=== PATIENT | male | born 1950 | race Caucasian/White ===

== ENCOUNTER 2020-02-20 07:14 | Emergency (ER) | payer MEDICARE, SELFPAY ==
--- NOTE | ~2020-02-20 | US_ITS ---
EXAMINATION: US venous doppler LE RT DATE: 02/20/2020 08:00 INDICATION: Lower limb pain TECHNIQUE: Grayscale ultrasound images without and with compression and Doppler ultrasound images of the right lower extremity veins were obtained. COMPARISON: 01/23/2018 FINDINGS: The visualized portions of right common femoral vein, profunda (deep) femoral vein, femoral vein, pop liteal vein, peroneal trunk, posterior tibial veins, peroneal veins, gastrocnemius vein and greater s aphenous vein outflow are patent. Subcutaneous edema at the anterior right lower leg with no discrete fluid collections to suggest abscess. There are a few shadowing dystrophic calcifications versus phl eboliths in the subcutaneous tissues. IMPRESSION: 1. No deep venous thrombosis in the right lower limb. Reviewed, dictated and finalized at location A.
[2020-02-20 07:21] VITALS: BP 162/92; PULSE 101; RESP 22; TEMP 36.5; O2SAT 96
--- NOTE | 2020-02-20 07:30 | ED.LOWEXIN ---
HPI - Extremity Injury (Lower) General Chief Complaint: Extremity Injury, Lower Stated Complaint: redness & swelling in right leg Time Seen by Provider: 02/20/20 07:16 Source: RN notes reviewed History of Present Illness HPI Narrative: Patient presents to emergency department from home for right leg pain. Patient states that 2 days ago he began to notice a purplish red discoloration to his right lower leg as well as pain. Patient states he did slip approximately 3 days ago in the mud but caught himself. States the pain is located in the posterior calf region and radiates around to the front of the leg. Patient is also noted swelling. He denies any fevers or chills chest pain shortness of breath abdominal pain or any other symptoms. Denies any previous history of DVT. Denies any ankle or knee pain Related Data Home Medications Medication Instructions Recorded Confirmed albuterol 90 mcg/actuation aerosol mcg INHALATION 11/10/19 11/10/19 inhaler furosemide 20 mg tablet 20 mg PO QAM 11/10/19 11/10/19 glimepiride 2 mg tablet 2 mg PO QAM 11/10/19 11/10/19 fenofibrate micronized 200 mg PO DAILY 02/20/20 ipratropium-albuterol ml INHALATION 02/20/20 metformin 500 mg PO BID 02/20/20 rosuvastatin [Crestor] 20 mg PO DAILY 02/20/20 Allergies Allergy/AdvReac Type Severity Reaction Status Date / Time No Known Allergies Allergy Verified 12/12/19 14:48 Review of Systems Review of Systems: Narrative: Gen.: Denies fevers or chills Eyes: Denies eye pain or visual change ENT: Denies congestion Respiratory: Denies shortness of breath or cough CV: Denies chest pain or palpitations GI: Denies abdominal pain nausea, emesis or diarrhea Musculoskeletal: Denies back pain reports right leg pain Neuro: Denies numbness, tingling, weakness or focal weakness Skin: Reports leg redness Except as documented, all other systems reviewed and negative [facility] Past Medical History Medical History Amputation of leg COPD (chronic obstructive pulmonary disease) Diabetic peripheral angiopathy GERD (gastroesophageal reflux disease) Hypoxemia Mixed hyperlipidemia Non-pressure ulcer of lower extremity Obesity Obstructive sleep apnea Psoriasis Type 2 diabetes mellitus Social History Social History (Updated 02/20/20 @ 07:34 by Max Dubon DO) Smoking status: Former smoker Alcohol intake: current Exam Narrative: Exam Narrative: APPEARANCE: No acute distress, nontoxic, resting in bed EYES: EOMI HEENT: Normocephalic, atraumatic, OMM RESPIRATORY: No respiratory distress Clear to auscultation bilaterally with no rhonchi wheezing or rales. CARDIOVASCULAR: Regular rate and rhythm without murmurs rubs or gallops. ABDOMINAL: Soft, nontender, nondistended, no rebound or guarding MUSCULOSKELETAl: Moves all extremities. No clubbing, cyanosis left BKA, right lower extremity has reddish-purple erythema around the mid llanes wrapping around to the posterior leg does not extend to the ankle or the foot or proximally to the knee, there is no tenderness of the knee or ankle full range of motion of both, dorsalis pedis pulse 2+ neurovascular intact NEURO: Awake and alert. Following commands, speech normal, no focal deficits SKIN:: Warm, dry. No rashes lesions or abrasions PSYCHIATRIC: Normal affect/mood, Course Course Emergency Course: Discussed with patient results of workup and diagnosis. Discussed need for follow-up with primary care, proper use of medication, and reasons to return to the emergency department. Patient understands and agrees to current treatment plan Vital Signs Vital signs: Vital Signs Temperature 97.7 F 02/20/20 07:21 Pulse Rate 101 H 02/20/20 07:21 Respiratory Rate 22 H 02/20/20 07:21 Blood Pressure 162/92 H 02/20/20 07:21 Pulse Oximetry 96 02/20/20 07:21 Temperature 97.7 F 02/20/20 07:21 Pulse Rate 101 H 02/20/20 07:21 Respiratory Rate 22 H
[2020-02-20 08:03] LABS: Basophils Percent Auto 0.5 % (0.2-1.2); Eosinophils Absolute Auto 0.2 K/mm3 (0-0.3); Eosinophils Percent Auto 1.9 % (0-4.4); Hematocrit 40.6 % (42.0-52.0); Hemoglobin 12.7 g/dL (14.0-18.0); Immature Granulocyte Absolute 0.02 K/mm3 (0.00-0.031); Immature Granulocyte Percent A 0.2 % (0-0.5); Lymphocytes Percent Auto 16.9 % (18.3-44.2); Mean Corpuscular HGB Conc 31.3 g/dl (32-36); Mean Corpuscular Hemoglobin 27.1 pg (26-34); Mean Corpuscular Volume 86.8 fl (80-100); Mean Platelet Volume 10.2 fl (7.4-10.4); Monocytes Absolute Auto 0.7 K/mm3 (0.1-0.6); Monocytes Percent Auto 8.2 % (2.6-8.5); Neutrophils Absolute Auto 6.4 K/mm3 (1.3-6.7); Neutrophils Percent Auto 72.3 % (45.5-73.1); Platelet Count Result 330 k/mm3 (150-375); Red Blood Count 4.68 M/mm3 (4.6-6.20); Red Cell Distribution Width 15.3 % (11.5-14.5); White Blood Count 8.9 K/mm3 (4.5-10.0)
[2020-02-20 08:15] LABS: INR 0.9; Prothrombin Time 11.5 Seconds (11.1-14.7)
[2020-02-20 08:16] LABS: Partial Thromboplastin Time 24.9 SECONDS (22.3-36.8)
[2020-02-20 08:17] LABS: Blood Urea Nitrogen 13 mg/dL (9-20); Carbon Dioxide 28 mmol/L (22-30); Chloride 100 mmol/L (98-107); Estimated CRCL calculation 123 ml/min; Estimated Glomerular Filt Rate > 60; Glucose 196 mg/dL (75-110); Potassium 4.2 mmol/L (3.4-5.0); Sodium 134 mmol/L (137-145)
[2020-02-20] MEDS: ACETAMINOPHEN 500 MG TABLET 1000 MG PO (09:08)
[2020-02-20] MEDS: CEPHALEXIN 500 MG CAPSULE PO (09:08)
== END 2020-02-20 09:16 | disposition home or self-care (01) ==
PROVIDERS: Emergency Provider Emergency Medicine; PCP Internal Medicine
DX: L03.115 Cellulitis of right lower limb (principal); J44.9 Chronic obstructive pulmonary disease, unspecified; E11.51 Type 2 diabetes mellitus with diabetic peripheral angiopathy without gangrene; Z79.84 Long term (current) use of oral hypoglycemic drugs; K21.9 Gastro-esophageal reflux disease without esophagitis; E78.2 Mixed hyperlipidemia; G47.33 Obstructive sleep apnea (adult) (pediatric); E66.9 Obesity, unspecified; Z68.41 Body mass index [BMI] 40.0-44.9, adult; Z89.512 Acquired absence of left leg below knee
CPT/HCPCS: 36415; 80048; 85025; 85610; 85730; 93971; 99284; A9270

== ENCOUNTER 2022-04-21 09:55 | Outpatient (CLI) | payer MEDICARE, SELFPAY ==
--- NOTE | ~2022-04-21 | CT_ITS ---
EXAMINATION: CT lung screening DATE: 04/21/2022 10:19 INDICATION: Personal history of nicotine dependence TECHNIQUE: Computed tomography (CT) of the chest was performed without intravenous contrast. The dose -length product was 387.54 mGy-cm. Automated exposure control and iterative reconstruction technique were employed. COMPARISON: CT dated 01/24/2018 FINDINGS: Heart size normal. No thoracic lymphadenopathy. There is atherosclerosis of the aorta and c oronary arteries. There are calcified granulomas of the lung parenchyma, mediastinum and spleen. No s ignificant pleural or pericardial effusion. There is emphysema. There is lingular and right middle lo be atelectasis/scarring. There are bilateral calcified pleural plaques, consistent with previous asbe stos exposure. There are bilateral pulmonary nodules measuring 4 mm or less. No endobronchial lesions . No pneumothorax. There is slight enlargement of fissural nodule on the right, image 59, measuring 7 x 5 mm compared with 7 x 4.5 mm on prior examination. IMPRESSION: 1. Lung-RADS category 2: Benign appearance or behavior. Continue annual screening with noncontrast lo w-dose chest CT in 12 months. Reviewed, dictated and finalized at location A. IMPRESSION: 1. Lung-RADS category 2: Benign appearance or behavior. Continue annual screeni ng with noncontrast low-dose chest CT in 12 months.
== END 2022-04-21 09:56 | disposition home or self-care (01) ==
PROVIDERS: PCP Family Medicine; Visit Provider Family Medicine
DX: Z12.2 Encounter for screening for malignant neoplasm of respiratory organs (principal); Z87.891 Personal history of nicotine dependence
CPT/HCPCS: 71271

== ENCOUNTER 2022-09-11 11:36 | Outpatient (CLI) | payer MEDICARE, SELFPAY ==
[2022-09-11 21:51] LABS: Hemoglobin A1C 6.8 % (<5.7)
[2022-09-11 22:45] LABS: Alanine Aminotransferase 49 U/L (6-50); Albumin Level 4.5 g/dL (3.5-5.1); Alkaline Phosphatase 110 U/L (38-126); Anion Gap 12 mmol/L (8-16); Aspartate Amino Transferase 35 U/L (17-59); Bilirubin,Total 0.6 mg/dL (0.2-1.3); Blood Urea Nitrogen 15 mg/dL (9-20); Calcium 9.2 mg/dL (8.4-10.2); Carbon Dioxide 26 mmol/L (22-30); Chloride 100 mmol/L (98-107); Cholesterol 171 mg/dL (0-200); Estimated Glomerular Filt Rate > 60; Glucose 138 mg/dL (65-110); HDL Direct 45 mg/dL; Potassium 4.6 mmol/L (3.4-5.0); Sodium 138 mmol/L (137-145); Triglycerides 334 mg/dL (<150)
[2022-09-11 23:03] LABS: LDL Cholesterol Direct 33 mg/dL
== END 2022-09-11 11:37 | disposition home or self-care (01) ==
LOC: ANHGOSHLAB 11:43
PROVIDERS: Internal Medicine; PCP Family Medicine; Visit Provider Family Medicine
DX: E11.9 Type 2 diabetes mellitus without complications (principal); E78.2 Mixed hyperlipidemia; Z13.228 Encounter for screening for other metabolic disorders
CPT/HCPCS: 36415; 80053; 80061; 83036

== ENCOUNTER 2023-04-22 12:38 | Emergency (ER) | payer MEDICARE, SELFPAY ==
[2023-04-22 12:40] VITALS: BP 153/73; PULSE 99; RESP 20; TEMP 36.6; O2SAT 96
[2023-04-22 13:55] LABS: Basophils Percent Auto 0.3 % (0.2-1.2); Eosinophils Absolute Auto 0.1 K/mm3 (0-0.3); Eosinophils Percent Auto 1.4 % (0-4.4); Hematocrit 41.1 % (42.0-52.0); Hemoglobin 13.3 g/dL (14.0-18.0); Immature Granulocyte Absolute 0.04 K/mm3 (0.00-0.031); Immature Granulocyte Percent A 0.4 % (0-0.5); Lymphocytes Absolute Auto 0.87 K/mm3 (0.9-3.2); Lymphocytes Percent Auto 9.5 % (18.3-44.2); Mean Corpuscular HGB Conc 32.4 g/dl (32-36); Mean Corpuscular Hemoglobin 27.9 pg (26-34); Mean Corpuscular Volume 86.2 fl (80-100); Mean Platelet Volume 9.8 fl (7.4-10.4); Monocytes Absolute Auto 0.9 K/mm3 (0.1-0.6); Monocytes Percent Auto 9.8 % (2.6-8.5); Neutrophils Absolute Auto 7.2 K/mm3 (1.3-6.7); Neutrophils Percent Auto 78.6 % (45.5-73.1); Platelet Count Result 274 k/mm3 (150-375); Red Blood Count 4.77 M/mm3 (4.6-6.20); Red Cell Distribution Width 16.2 % (11.5-14.5); White Blood Count 9.1 K/mm3 (4.5-10.0)
[2023-04-22 14:08] LABS: Alanine Aminotransferase 44 U/L (6-50); Albumin Level 4.3 g/dL (3.5-5.1); Alkaline Phosphatase 113 U/L (38-126); Anion Gap 6 mmol/L (8-16); Aspartate Amino Transferase 35 U/L (17-59); Bilirubin,Total 0.8 mg/dL (0.2-1.3); Blood Urea Nitrogen 16 mg/dL (9-20); Calcium 8.8 mg/dL (8.4-10.2); Carbon Dioxide 33 mmol/L (22-30); Chloride 97 mmol/L (98-107); Estimated CRCL calculation 105 ml/min; Estimated Glomerular Filt Rate > 60; Glucose 170 mg/dL (65-110); Potassium 4.2 mmol/L (3.4-5.0); Sodium 136 mmol/L (137-145)
[2023-04-22 14:09] LABS: Lactic Acid Reflex 1.7 mmol/L (0.7-2.0)
[2023-04-22] MEDS: CEFEPIME 1 GM/NS 50 ML 1 GM/50 ML BAG IVPB (15:17)
[2023-04-22 16:06] VITALS: BP 165/95; PULSE 100; RESP 18; O2SAT 100
--- NOTE | 2023-04-22 17:32 | ED.SKABFB ---
HPI - Skin/Abscess/Foreign Bdy General Chief complaint: Skin/Abscess/Foreign Body Stated complaint: i think i have cellulitus Time Seen by Provider: 04/22/23 13:08 Source: patient Mode of arrival: ambulatory Limitations: no limitations History of Present Illness HPI narrative: 73-year-old with a history of hypertension, diabetes, COPD on home oxygen here with complaints of pain, swelling and redness to his back which started 2 days ago. He denies any trauma. Patient states that few days ago was scratching his back. He does have a history of herpes zoster as well as cellulitis. He states that the rash is not burning. complaint: rash Onset (ago): day(s) (2) Location: back Severity: moderate Quality: dull Pain Consistency: constant Relieving factors: none Exacerbating factors: none Context: none Associated symptoms: denies other symptoms Treatments prior to arrival: none Related Data Home Medications Medication Instructions Recorded Confirmed albuterol 90 mcg/actuation aerosol 90 mcg inhalation DAILY PRN 03/12/23 03/12/23 inhaler aspirin 81 mg capsule 81 mg PO DAILY 03/12/23 03/12/23 Allergies Allergy/AdvReac Type Severity Reaction Status Date / Time No Known Allergies Allergy Verified 04/22/23 13:00 Review of Systems Review of Systems: All systems reviewed & are unremarkable except as noted in HPI and below Constitutional: Constitutional: Reports no additional constitutional complaints Eyes: Eyes: Reports no additional eye complaints ENT: Reports system reviewed and no additional complaints, except as documented Cardiovascular: Cardiovascular: Reports no additional cardiovascular complaints Respiratory: Respiratory: Reports no additional respiratory complaints Gastrointestinal: Gastrointestinal: Reports no additional gastrointestinal complaints Musculoskeletal: Musculoskeletal: Reports no additional musculoskeletal complaints Integumentary/Breasts: Skin/Breast: Reports as per HPI Neurologic: Reports system reviewed and no additional complaints, except as documented PMF Past Medical History Medical History (Updated 04/22/23 @ 17:49 by Salo Xiong MD) Amputation of leg COPD (chronic obstructive pulmonary disease) Diabetic peripheral angiopathy GERD (gastroesophageal reflux disease) Hypoxemia Mixed hyperlipidemia Non-pressure ulcer of lower extremity Obesity Obstructive sleep apnea Psoriasis Type 2 diabetes mellitus Family History Family History Mother Patient's mother is Father Patient's father is Social History Social History Smoking status: Former smoker Alcohol intake: current Substance use: never Substance use type: does not use Lack of Transportation: No Lack of Food: Never True Current Housing: I Have Housing Concerned About Future Housing: No Difficulty Paying Gas/Electric Bills: No Difficulty Paying for Meds: No Currently Unemployed: No Education: Trade/Vocational Certificate Difficulty w/ Childcare or Family Care: No Living arrangements: with family Occupation/Education: retired Gender identity (if verbalized by the patient): Male Spiritual care concerns: No Exam Narrative: GENERAL: Well-appearing, well-nourished, and in no acute distress. HEAD: Normocephalic, atraumatic. EYES: PERRLA and EOMI. ENT: Nares clear, no rhinorrhea or epistaxis. Mucous membranes moist. NECK: Supple. CHEST: Clear to auscultation. No respiratory distress. HEART: Regular rate and rhythm. No murmur heard. Normal peripheral pulses. ABDOMEN: Soft, nontender, nondistended, normal active bowel sounds. EXTREMITIES: Normal range of motion. No edema.BKA left SKIN: Warm, dry, no rash.see the picture NEURO: No focal deficits. Alert and oriented x3. PSYCH: Normal mood and affect. Back/Spine/Pelvis:
[2023-04-22 18:08] VITALS: BP 178/87; PULSE 96; RESP 20; O2SAT 98
== END 2023-04-22 17:59 | disposition home or self-care (01) ==
PROVIDERS: Emergency Provider Family Medicine; PCP Family Medicine
DX: L03.312 Cellulitis of back [any part except buttock and flank] (principal); I10 Essential (primary) hypertension; J44.9 Chronic obstructive pulmonary disease, unspecified; E11.51 Type 2 diabetes mellitus with diabetic peripheral angiopathy without gangrene; I73.9 Peripheral vascular disease, unspecified; E78.2 Mixed hyperlipidemia; G47.33 Obstructive sleep apnea (adult) (pediatric); E66.9 Obesity, unspecified; Z68.41 Body mass index [BMI] 40.0-44.9, adult; K21.9 Gastro-esophageal reflux disease without esophagitis; Z89.9 Acquired absence of limb, unspecified; Z87.891 Personal history of nicotine dependence; Z79.82 Long term (current) use of aspirin; Z79.85 Long-term (current) use of injectable non-insulin antidiabetic drugs; Z79.84 Long term (current) use of oral hypoglycemic drugs
CPT/HCPCS: 36415; 80053; 83605; 85025; 87040; 96365; 96366; 96367; 99284; J0692; J3370

== ENCOUNTER 2023-09-10 09:48 | Outpatient (CLI) | payer MEDICARE, SELFPAY ==
--- NOTE | ~2023-09-10 | CT_ITS ---
CT Scan of the Chest without Contrast: Clinical Indication: Solitary pulmonary nodule Technique: Contiguous sections were acquired throughout the chest without intravenous contrast. Dose reduction technique was used on this scan by utilizing automated exposure control and iterative recon struction technique. The dose-length product (DLP) was 363.66 mGy-cm. COMPARISON: 04/21/2022 Findings: There is no evidence of any significant mediastinal, hilar or axillary lymphadenopathy. Small calcifi ed lymph nodes are present at the left hilum. Coronary artery calcifications are present. Possible se baceous cyst noted at the anterior chest x-ray of midline, unchanged There is no evidence of pleural or pericardial effusion. Calcified bibasilar pleural plaques are pres ent There is probable scarring in the lingula. Several subcentimeter, peripheral nodules are present bila terally, likely benign, similar to prior exam. Stable 7 mm perifissural nodule in the right lung (axi al image 69). Images through the upper abdomen reveal no abnormalities. Impression: Pulmonary nodules, as detailed above, essentially unchanged. Largest nodule measures 7 mm a perifissu ral location the right lung. Reviewed, dictated and finalized at location M. Impression: Pulmonary nodules, as detailed above, essentially unchanged. Largest nodule donna sures 7 mm a perifissural location the right lung.
== END 2023-09-10 09:49 | disposition home or self-care (01) ==
LOC: ANHIMG 09:53
PROVIDERS: PCP Family Medicine; Visit Provider Family Medicine
DX: R91.8 Other nonspecific abnormal finding of lung field (principal)
CPT/HCPCS: 71250

== ENCOUNTER 2023-09-28 08:44 | Emergency (ER) | payer MEDICARE, SELFPAY ==
[2023-09-28 08:59] VITALS: BP 155/73; PULSE 95; RESP 20; TEMP 36.6; O2SAT 95
[2023-09-28 10:55] VITALS: BP 158/80; PULSE 99; RESP 18; TEMP 36.9; O2SAT 96; O2SAT 97
[2023-09-28 11:53] LABS: Basophils Percent Auto 0.2 % (0.2-1.2); Eosinophils Percent Auto 0.2 % (0-4.4); Hematocrit 42.3 % (42.0-52.0); Hemoglobin 13.2 g/dL (14.0-18.0); Immature Granulocyte Absolute 0.04 K/mm3 (0.00-0.031); Immature Granulocyte Percent A 0.3 % (0-0.5); Lymphocytes Absolute Auto 0.97 K/mm3 (0.9-3.2); Lymphocytes Percent Auto 7.4 % (18.3-44.2); Mean Corpuscular HGB Conc 31.2 g/dl (32-36); Mean Corpuscular Hemoglobin 26.8 pg (26-34); Mean Corpuscular Volume 85.8 fl (80-100); Mean Platelet Volume 9.8 fl (7.4-10.4); Monocytes Absolute Auto 1.2 K/mm3 (0.1-0.6); Monocytes Percent Auto 8.9 % (2.6-8.5); Neutrophils Absolute Auto 10.9 K/mm3 (1.3-6.7); Platelet Count Result 266 k/mm3 (150-375); Red Blood Count 4.93 M/mm3 (4.6-6.20); Red Cell Distribution Width 16.4 % (11.5-14.5); White Blood Count 13.1 K/mm3 (4.5-10.0)
[2023-09-28 12:11] LABS: Alanine Aminotransferase 37 U/L (6-50); Albumin Level 4.3 g/dL (3.5-5.1); Alkaline Phosphatase 99 U/L (38-126); Anion Gap 7 mmol/L (8-16); Aspartate Amino Transferase 33 U/L (17-59); Bilirubin,Total 1.2 mg/dL (0.2-1.3); Blood Urea Nitrogen 12 mg/dL (9-20); Carbon Dioxide 29 mmol/L (22-30); Chloride 98 mmol/L (98-107); Estimated CRCL calculation 105 ml/min; Estimated Glomerular Filt Rate > 60; Glucose 137 mg/dL (65-110); Sodium 134 mmol/L (137-145)
--- NOTE | 2023-09-28 12:52 | ED.SKABFB ---
HPI - Skin/Abscess/Foreign Bdy General Chief complaint: Skin/Abscess/Foreign Body Stated complaint: cellulitis on back Time Seen by Provider: 09/28/23 10:45 History of Present Illness HPI narrative: Patient is a 73-year-old male who presents ER with concerns for cellulitis to his back. Noticed the rash over the last 2 days. Pruritic. No fevers or chills or sweats. Patient has history of psoriasis and this rash is different. Patient also is diabetic. Furthermore patient also has a small cut near the his cuticle at the right second toe. States it occurred when he pulled off his sock. No drainage. No eschar. No foul odor. Related Data Home Medications Medication Instructions Recorded Confirmed albuterol 90 mcg/actuation aerosol 90 mcg inhalation DAILY PRN 03/12/23 08/27/23 inhaler aspirin 81 mg capsule 81 mg PO DAILY 03/12/23 08/27/23 Allergies Allergy/AdvReac Type Severity Reaction Status Date / Time No Known Allergies Allergy Verified 09/28/23 10:53 Review of Systems Review of Systems: All systems reviewed & are unremarkable except as noted in HPI and below Constitutional: Constitutional: Denies chills, Denies fatigue and Denies fever(s) Cardiovascular: Cardiovascular: Denies chest pain, Denies rapid heart rate and Denies radiating jaw, neck or arm pain Respiratory: Respiratory: Denies cough and Denies dyspnea Integumentary/Breasts: Skin/Breast: Reports pruritus, Reports erythema and Reports rash PMFSH Past Medical History Medical History (Updated 09/28/23 @ 12:58 by Ramirez Saab MD) Amputation of leg COPD (chronic obstructive pulmonary disease) Diabetic peripheral angiopathy GERD (gastroesophageal reflux disease) Hypoxemia Mixed hyperlipidemia Non-pressure ulcer of lower extremity Obesity Obstructive sleep apnea Psoriasis Type 2 diabetes mellitus Family History Family History Mother Patient's mother is Father Patient's father is Social History Social History Smoking status: Former smoker Alcohol intake: current Substance use: never Substance use type: does not use Lack of Transportation: No Lack of Food: Never True Current Housing: I Have Housing Concerned About Future Housing: No Difficulty Paying Gas/Electric Bills: No Difficulty Paying for Meds: No Currently Unemployed: No Education: Trade/Vocational Certificate Difficulty w/ Childcare or Family Care: No Living arrangements: with family Occupation/Education: retired Gender identity (if verbalized by the patient): Male Spiritual care concerns: No Exam Narrative: GENERAL: Well-appearing, well-nourished, and in no acute distress. HEAD: Normocephalic, atraumatic. ENT: Mucous membranes moist. CHEST: Clear to auscultation. No respiratory distress. HEART: Regular rate and rhythm. Normal peripheral pulses. ABDOMEN: Soft, nontender, nondistended. EXTREMITIES: Normal range of motion. No edema. Left BKA. Abrasion right second toe without infection. SKIN: Warm, dry. Cellulitis mid back that is warm and blanching. Psoriasis left leg. NEURO: Alert and oriented x3. PSYCH: Normal mood and affect. Course Course Emergency Course: Slight increase in white blood cell count however patient felt appropriate for outpatient antibiotics. Vital Signs Vital signs: Vital Signs Temperature 97.8 F 09/28/23 08:59 Pulse Rate 95 09/28/23 08:59 Respiratory Rate 20 09/28/23 08:59 Blood Pressure 155/73 H 09/28/23 08:59 Pulse Oximetry 95 09/28/23 08:59 Oxygen Delivery Nasal Cannula 09/28/23 08:59 Oxygen Flow Rate 3 09/28/23 08:59 Temperature 98.5 F 09/28/23 10:55 Pulse Rate 88 09/28/23 13:11 Respiratory Rate 16 09/28/23 13:11 Blood Pressure 124/75 09/28/23 13:11 Pulse Oximetry 98 09/28/23 13:11 Oxygen Delivery
[2023-09-28 12:56] VITALS: BP 130/75; PULSE 92; RESP 18; O2SAT 97
[2023-09-28 13:11] VITALS: BP 124/75; PULSE 88; RESP 16; O2SAT 98
== END 2023-09-28 13:12 | disposition home or self-care (01) ==
PROVIDERS: Emergency Provider Emergency Medicine; PCP Family Medicine
DX: L03.312 Cellulitis of back [any part except buttock and flank] (principal); J44.9 Chronic obstructive pulmonary disease, unspecified; E78.2 Mixed hyperlipidemia; E11.9 Type 2 diabetes mellitus without complications; Z87.891 Personal history of nicotine dependence
CPT/HCPCS: 36415; 80053; 85025; 99283

== ENCOUNTER 2024-01-18 08:53 | Inpatient (IN) | payer MEDICARE, SELFPAY ==
[2024-01-18] VITALS (31 sets, daily range): BP systolic 121–194; BP diastolic 63–92; PULSE 85–103; RESP 15–26; TEMP 36.4–36.9; O2SAT 91–100; BMI 39.0
--- NOTE | ~2024-01-18 | US_ITS ---
EXAMINATION: US venous doppler LE RT DATE: 01/19/2024 11:05 INDICATION: Right lower limb edema TECHNIQUE: Alston scale images without and with compression and Doppler images of the right lower extre mity veins were obtained. COMPARISON: 02/20/2020 FINDINGS: The right common femoral vein, profunda femoral vein, femoral vein, popliteal vein, peronea l trunk, posterior tibial veins, and greater saphenous vein are patent. There is a possible pseudoane urysm of the proximal superficial femoral artery. IMPRESSION: 1. Patent right lower extremity veins. No evidence of deep venous thrombosis. 2. 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 Reviewed, dictated and finalized at location B. [facility]E [facility]ATER
[2024-01-18 09:22] LABS: Glucose Point of Care 160 mg/dl (65-105)
[2024-01-18 11:48] LABS: Basophils Percent Auto 0.6 % (0.2-1.2); Eosinophils Absolute Auto 0.1 K/mm3 (0-0.3); Hematocrit 39.9 % (42.0-52.0); Hemoglobin 12.3 g/dL (14.0-18.0); Immature Granulocyte Absolute 0.02 K/mm3 (0.00-0.031); Immature Granulocyte Percent A 0.3 % (0-0.5); Lymphocytes Absolute Auto 0.86 K/mm3 (0.9-3.2); Lymphocytes Percent Auto 13.5 % (18.3-44.2); Mean Corpuscular HGB Conc 30.8 g/dl (32-36); Mean Corpuscular Hemoglobin 27.3 pg (26-34); Mean Corpuscular Volume 88.5 fl (80-100); Mean Platelet Volume 9.7 fl (7.4-10.4); Monocytes Absolute Auto 0.6 K/mm3 (0.1-0.6); Monocytes Percent Auto 8.6 % (2.6-8.5); Neutrophils Absolute Auto 4.8 K/mm3 (1.3-6.7); Platelet Count Result 274 k/mm3 (150-375); Red Blood Count 4.51 M/mm3 (4.6-6.20); Red Cell Distribution Width 16.3 % (11.5-14.5); White Blood Count 6.4 K/mm3 (4.5-10.0)
[2024-01-18 12:02] LABS: Anion Gap 6 mmol/L (8-16); Blood Urea Nitrogen 15 mg/dL (9-20); CRP < 0.5 mg/dL (<1.0); Calcium 9.2 mg/dL (8.4-10.2); Carbon Dioxide 29 mmol/L (22-30); Chloride 103 mmol/L (98-107); Estimated CRCL calculation 105 ml/min; Estimated Glomerular Filt Rate > 60; Glucose 146 mg/dL (65-110); Potassium 4.5 mmol/L (3.4-5.0); Sodium 138 mmol/L (137-145)
[2024-01-18 12:26] LABS: Erythrocyte Sedimentation Rate 21 mm/hr (0-20)
[2024-01-18] MEDS: CEFEPIME 2 GM/NS 50 ML 2 GM/50 ML BAG IVPB (12:56)
--- NOTE | 2024-01-18 12:58 | ED.SKABFB ---
HPI - Skin/Abscess/Foreign Bdy General Chief complaint: Skin/Abscess/Foreign Body Stated complaint: infected stump Time Seen by Provider: 01/18/24 11:47 Source: patient Mode of arrival: wheelchair Limitations: no limitations History of Present Illness HPI narrative: 73-year-old with a history of a diabetes status post BKA on the left, recurrent cellulitis of the lower extremities today are the patient had redness to his left upper thigh extending into his lower abdomen. Patient states that it has been ongoing for past few days. He was recently admitted to [facility] for cellulitis of some right lower extremity. Patient states that he was given vancomycin on day 1 and later was switched over to ampicillin. He stated he grew strep in his blood presently denies any fever or chills no history of nausea vomiting or abdominal pain MD complaint: rash Onset (ago): day(s) (5) Location: LLE Severity: moderate Quality: burning Pain Consistency: constant Relieving factors: none Exacerbating factors: none Context: none Associated symptoms: denies other symptoms Related Data Home Medications Medication Instructions Recorded Confirmed albuterol 90 mcg/actuation aerosol 90 mcg inhalation DAILY PRN 03/12/23 08/27/23 inhaler aspirin 81 mg capsule 81 mg PO DAILY 03/12/23 08/27/23 Allergies Allergy/AdvReac Type Severity Reaction Status Date / Time No Known Allergies Allergy Verified 01/18/24 11:11 Review of Systems Review of Systems: All systems reviewed & are unremarkable except as noted in HPI and below Constitutional: Constitutional: Reports no additional constitutional complaints Eyes: Eyes: Reports no additional eye complaints ENT: Reports system reviewed and no additional complaints, except as documented Cardiovascular: Cardiovascular: Reports no additional cardiovascular complaints Respiratory: Respiratory: Reports no additional respiratory complaints Gastrointestinal: Gastrointestinal: Reports no additional gastrointestinal complaints Musculoskeletal: Musculoskeletal: Reports no additional musculoskeletal complaints Integumentary/Breasts: Skin/Breast: Reports erythema and Reports rash Neurologic: Reports system reviewed and no additional complaints, except as documented Endocrine: Endocrine: Reports no additional endocrine complaints Hematologic/Lymphatic: Hematologic/Lymphatic: Reports no additional hematologic/lymphatic complaints [facility] Past Medical History Medical History (Updated 01/18/24 @ 13:05 by Salo Xiong MD) Amputation of leg COPD (chronic obstructive pulmonary disease) Diabetic peripheral angiopathy GERD (gastroesophageal reflux disease) Hypoxemia Mixed hyperlipidemia Non-pressure ulcer of lower extremity Obesity Obstructive sleep apnea Psoriasis Type 2 diabetes mellitus Family History Family History Mother Patient's mother is Father Patient's father is Social History Social History Smoking status: Former smoker Alcohol intake: current Substance use: never Substance use type: does not use Lack of Transportation: No Lack of Food: Never True Current Housing: I Have Housing Concerned About Future Housing: No Difficulty Paying Gas/Electric Bills: No Difficulty Paying for Meds: No Currently Unemployed: No Education: Trade/Vocational Certificate Difficulty w/ Childcare or Family Care: No Living arrangements: with family Occupation/Education: retired Gender identity (if verbalized by the patient): Male Spiritual care concerns: No Exam Narrative: GENERAL: Well-appearing, well-nourished, and in no acute distress. HEAD: Normocephalic, atraumatic. EYES: PERRLA and EOMI. ENT: Nares clear, no rhinorrhea or epistaxis. Mucous membranes moist. NECK: Supple. CHEST: Clear to auscultatio
[2024-01-18] MEDS: metroNIDAZOLE 500 MG/ISO 100ML 500 MG/100 ML BAG 100 MG IVPB (13:14)
[2024-01-18] MEDS: SODIUM CHLORIDE 0.9% IV 1,000 ML 75 ML IV CONT (13:27)
[2024-01-18] MEDS: IPRATROPIUM 0.5 MG/ALBUTEROL SULFATE 2.5 MG AMPUL.NEB 3 ML INHALATION ×2 (16:23→22:04)
--- NOTE | 2024-01-18 18:36 | PM.IMHP ---
H&P: HPI History of Present Illness Date/Time: 01/18/24 16:00 Chief Complaint: Pain and redness on left thigh. 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 The patient provides the following history. He was hospitalized at [place] the end of November with right lower extremity cellulitis and strep bacteremia and he was discharged on Augmentin on 01/02/2024. He has been doing fine in that regard but sometime yesterday afternoon he developed a burning sensation in the left, medial distal thigh and this morning the same area which was burning had turned bright red/purple which is similar to his prior episode of cellulitis. He has psoriasis on that extremity but reports that this area of discoloration and pain is new finding in the last 24 hours and is not related to psoriasis; he also denies sores or friction from his prosthesis in this area. He has not had fever, chills, or sweats and he denies nausea and vomiting. History of MRSA documented in his chart. In the ED: He was afebrile on arrival with stable vital signs. Labs were significant for a WBC count of 6.4, hemoglobin 12.3, glucose 146, CRP less than 0.5. Given his recent history, he was started on broad-spectrum antibiotics and he is being admitted in this setting for treatment of a presumed new area of cellulitis. At the time my evaluation he has no current complaints. Review of Systems Review of Systems: Twelve systems were reviewed and are negative except for as per HPI. [facility] Past Medical History Medical History (Updated 01/18/24 @ 23:20 by Meenakshi Lai PA-C) Chronic obstructive pulmonary disease Diabetic peripheral angiopathy Gastroesophageal reflux Hypertension Mixed hyperlipidemia MRSA infection Obesity Obstructive sleep apnea Psoriasis Thromboangiitis obliterans Type 2 diabetes mellitus Surgical History Surgical History (Updated 01/18/24 @ 23:16 by Meenakshi Lai PA-C) History of appendectomy History of left below knee amputation Family History Family History Mother Patient's mother is Infection Father Patient's father is Stomach cancer Social History Social History (Updated 01/18/24 @ 23:17 by Meenakshi Lai PA-C) Social History: Surrogate medical decision maker: Rolanda Kelley, spouse. Code status: Full code. Smoking status: Former smoker Tobacco type: cigarettes Alcohol intake: former Substance use: former Substance use type: marijuana Last use: 2009 Do You Feel Safe in your Home?: Yes Lack of Transportation: No Lack of Food: Never True Current Housing: I Have Housing Concerned About Future Housing: No Difficulty Paying Gas/Electric Bills: No Difficulty Paying for Meds: No Currently Unemployed: No Education: Trade/Vocational Certificate Difficulty w/ Childcare or Family Care: No Living arrangements: with family Occupation/Education: retired Spiritual care concerns: No Meds Home Medications and Allergies Home Medications Medication Instructions Recorded Confirmed Type nebulizer accessories #50 ea 07/03/21 01/18/24 Rx 2 Knee selves, 4- 5 ply socks, 4- #1 ea 10/26/22 01/18/24 Rx 3 ply socks, 4- Anti-microbial socks aspirin 81 mg capsule 81 mg PO DAILY 03/12/23 01/18/24 History metformin 500 mg tablet 500 mg PO BID #180 tabs 05/03/23 01/18/24 Rx furosemide 20 mg tablet 20 mg PO QAM #90 tabs 08/10/23 01/18/24 Rx glimepiride 2 mg tablet 2 mg PO QAM #90 tabs 08/10/23 01/18/24 Rx rosuvastatin 20 mg tablet (Crestor) 20 mg PO DAILY #90 tabs 08/10/23 01/18/24 R
--- NOTE | 2024-01-18 21:30 | ADMGEN ---
This patient, Frank Kelley III, was admitted to 2 Medical Room 247-. Patient/family oriented to hospital policies and general routines including ID bracelet, bed and alarms, visiting hours, pain management, procedures, bathroom and other care routines, personal items, smoking policy, room service/diet, and visiting hours. Information on how to activate the Rapid Response Team has been discussed. Patient/Family are encouraged to report perceived risks to care and to ask questions if they do not understand what they are told or what they should do.
[2024-01-19] VITALS (13 sets, daily range): BP systolic 151–187; BP diastolic 63–69; PULSE 78–104; RESP 18–27; TEMP 36.1–36.8; O2SAT 94–98
[2024-01-19] MEDS: IPRATROPIUM 0.5 MG/ALBUTEROL SULFATE 2.5 MG AMPUL.NEB 3 ML INHALATION ×4 (02:51→20:38)
[2024-01-19] MEDS: SODIUM CHLORIDE 0.9% IV 1,000 ML 75 ML IV CONT ×2 (05:00→20:45)
[2024-01-19 05:19] LABS: Basophils Percent Auto 0.3 % (0.2-1.2); Eosinophils Absolute Auto 0.4 K/mm3 (0-0.3); Eosinophils Percent Auto 4.9 % (0-4.4); Hematocrit 40.3 % (42.0-52.0); Hemoglobin 12.3 g/dL (14.0-18.0); Immature Granulocyte Absolute 0.02 K/mm3 (0.00-0.031); Immature Granulocyte Percent A 0.3 % (0-0.5); Lymphocytes Percent Auto 15.5 % (18.3-44.2); Mean Corpuscular HGB Conc 30.5 g/dl (32-36); Mean Corpuscular Volume 88.6 fl (80-100); Monocytes Absolute Auto 0.7 K/mm3 (0.1-0.6); Monocytes Percent Auto 10.2 % (2.6-8.5); Neutrophils Absolute Auto 4.9 K/mm3 (1.3-6.7); Neutrophils Percent Auto 68.8 % (45.5-73.1); Platelet Count Result 275 k/mm3 (150-375); Red Blood Count 4.55 M/mm3 (4.6-6.20); Red Cell Distribution Width 16.1 % (11.5-14.5); White Blood Count 7.1 K/mm3 (4.5-10.0)
[2024-01-19 05:29] LABS: Hemoglobin A1C 6.8 % (<5.7)
[2024-01-19 05:33] LABS: Alanine Aminotransferase 28 U/L (6-50); Albumin Level 3.9 g/dL (3.5-5.1); Alkaline Phosphatase 88 U/L (38-126); Anion Gap 2 mmol/L (8-16); Aspartate Amino Transferase 29 U/L (17-59); Bilirubin,Total 0.7 mg/dL (0.2-1.3); Blood Urea Nitrogen 12 mg/dL (9-20); Carbon Dioxide 31 mmol/L (22-30); Chloride 104 mmol/L (98-107); Estimated CRCL calculation 103 ml/min; Estimated Glomerular Filt Rate > 60; Glucose 105 mg/dL (65-110); Magnesium 2.1 mg/dL (1.6-2.3); Potassium 4.2 mmol/L (3.4-5.0); Sodium 137 mmol/L (137-145)
[2024-01-19 08:36] LABS: Glucose Point of Care 127 mg/dl (65-105)
[2024-01-19] MEDS: ROSUVASTATIN 10 MG TABLET 20 MG PO (09:19)
[2024-01-19] MEDS: ASPIRIN 81 MG ENTERIC TABLET PO (09:20)
[2024-01-19] MEDS: ENOXAPARIN 40 MG/0.4 ML SYRINGE SUB-Q (09:20)
[2024-01-19] MEDS: GLIMEPIRIDE 2 MG TABLET PO (09:20)
[2024-01-19] MEDS: LOSARTAN POTASSIUM 50 MG TABLET PO (09:20)
[2024-01-19] MEDS: FUROSEMIDE 20 MG TABLET PO (09:20)
[2024-01-19 11:56] LABS: Glucose Point of Care 170 mg/dl (65-105)
[2024-01-19] MEDS: FLUCONAZOLE 100 MG TABLET 200 MG PO (12:58)
[2024-01-19] MEDS: AMPICILLIN SULB 3 GM/NS 100 ML 3 GM/100 ML VIAL IVPB ×2 (12:58→17:15)
--- NOTE | 2024-01-19 13:20 | P.PNIM_ITS ---
Progress Note: A&P Assessment and Plan (1) Cellulitis of left lower leg: Code(s): L03.116 - Cellulitis of left lower limb Status: Acute Assessment and Plan: * 2 IV abx Vanc and Unasyn initiated per antibiotic stewardship recommendation * PO FLuconazole added for antifungal * Hx of strep and MRSA infections * afebrile, WBC 7.1 * Blood cultures pending. * Monitor site for increased size of rash area (2) Type 2 diabetes mellitus: Qualifiers: Diabetes mellitus snf insulin use: without snf use Diabetes mellitus complication status: with circulatory complication Diabetes mellitus complication detail: with peripheral angiopathy with gangrene Qualified Code(s): E11.52 - Type 2 diabetes mellitus with diabetic peripheral angiopathy with gangrene Code(s): E11.9 - Type 2 diabetes mellitus without complications Status: Acute Assessment and Plan: * 01/19 Continue glimepiride * HgbA1C- 6.8 * Sliding scale insulin ordered, Accu-Cheks and hypoglycemia protocol * AM glucose 105 * Continue to monitor (3) Chronic obstructive pulmonary disease: Code(s): J44.9 - Chronic obstructive pulmonary disease, unspecified Status: Acute Assessment and Plan: * 01/19-Wears 3L O2 via NC at home for baseline- Continue * Denies SOB, dyspnea * Keep O2 sats greater than 92% (4) Obstructive sleep apnea: Code(s): G47.33 - Obstructive sleep apnea (adult) (pediatric) Status: Acute Assessment and Plan: * 01/19- CPAP provided while hospitalized- RT (5) Hypertension: Code(s): I10 - Essential (primary) hypertension Status: Acute Assessment and Plan: * 01/19- Continue antihypertensive mediations * AM BP 159/69 * Monitor and adjust as needed. (6) Diabetic peripheral angiopathy: Code(s): E11.51 - Type 2 diabetes mellitus with diabetic peripheral angiopathy without gangrene Status: Acute Assessment and Plan: * 01/19- Right Lower extremity edema noted * EXAMINATION: US venous doppler LE RT: Patent right lower extremity veins. No evidence of deep venous thrombosis.Possible pseudoaneurysm of the proximal superficial femoral artery. * Patient denies pain to this area. Stated vein taken from right leg to try to save left leg. 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 Patient states that it has been ongoing for past few days. He was recently admitted to [facility] for cellulitis of some right lower extremity. Patient states that he was given vancomycin on day 1 and later was switched over to ampicillin. He stated he grew strep in his blood presently denies any fever or chills no history of nausea vomiting or abdominal pain MD complaint: rash Onset (ago): day(s) (5) Location: LLE Severity: moderate Quality: burning Pain Consistency: constant Relieving factors: none Exacerbating factors: none Context: none Associated symptoms: denies other symptoms Narrative: H&P Chief Complaint: Pain and redness on left thigh. This is a pleasant 73-year-old male with type 2 diabetes mellitus, hypertension, dyslipidemia, chronic obstructive pulmonary disease, obstructive sleep apnea, an d thromboangiitis obliterans status po
--- NOTE | 2024-01-19 13:20 | PM.IMPN ---
Progress Note: A&P Assessment and Plan (1) Cellulitis of left lower leg: Code(s): L03.116 - Cellulitis of left lower limb Status: Acute Assessment and Plan: 01/19 IV abx Vanc and Unasyn initiated per antibiotic stewardship recommendation PO FLuconazole added for antifungal Hx of strep and MRSA infections afebrile, WBC 7.1 Blood cultures pending. Monitor site for increased size of rash area (2) Type 2 diabetes mellitus: Qualifiers: Diabetes mellitus fci insulin use: without dry kiln worker use Diabetes mellitus complication status: with circulatory complication Diabetes mellitus complication detail: with peripheral angiopathy with gangrene Qualified Code(s): E11.52 - Type 2 diabetes mellitus with diabetic peripheral angiopathy with gangrene Code(s): E11.9 - Type 2 diabetes mellitus without complications Status: Acute Assessment and Plan: 01/19 Continue glimepiride HgbA1C- 6.8 Sliding scale insulin ordered, Accu-Cheks and hypoglycemia protocol AM glucose 105 Continue to monitor (3) Chronic obstructive pulmonary disease: Code(s): J44.9 - Chronic obstructive pulmonary disease, unspecified Status: Acute Assessment and Plan: 01/19-Wears 3L O2 via NC at home for baseline- Continue Denies SOB, dyspnea Keep O2 sats greater than 92% (4) Obstructive sleep apnea: Code(s): G47.33 - Obstructive sleep apnea (adult) (pediatric) Status: Acute Assessment and Plan: 01/19- CPAP provided while hospitalized- RT (5) Hypertension: Code(s): I10 - Essential (primary) hypertension Status: Acute Assessment and Plan: 01/19- Continue antihypertensive mediations AM BP 159/69 Monitor and adjust as needed. (6) Diabetic peripheral angiopathy: Code(s): E11.51 - Type 2 diabetes mellitus with diabetic peripheral angiopathy without gangrene Status: Acute Assessment and Plan: 01/19- Right Lower extremity edema noted EXAMINATION: US venous doppler LE RT: Patent right lower extremity veins. No evidence of deep venous thrombosis.Possible pseudoaneurysm of the proximal superficial femoral artery. Patient denies pain to this area. Stated vein taken from right leg to try to save left leg. 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 Patient states that it has been ongoing for past few days. He was recently admitted to [facility] for cellulitis of some right lower extremity. Patient states that he was given vancomycin on day 1 and later was switched over to ampicillin. He stated he grew strep in his blood presently denies any fever or chills no history of nausea vomiting or abdominal pain MD complaint: rash Onset (ago): day(s) (5) Location: LLE Severity: moderate Quality: burning Pain Consistency: constant Relieving factors: none Exacerbating factors: none Context: none Associated symptoms: denies other symptoms Narrative: H&P Chief Complaint: Pain and redness on left thigh. 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 The patient provides the following history. He was hospitalized at [place] the end of November with right lower extremity cellulitis and strep bacteremia and he was discharged on Augmentin on 01/02/2024. He has been doing fine in that regard but sometime yes
[2024-01-19] MEDS: VANCOMYCIN 1,500 MG/NS 500 ML 1,500 MG/500 ML BAG 250 MG IVPB (14:10)
[2024-01-19 16:47] LABS: Glucose Point of Care 77 mg/dl (65-105)
[2024-01-19 20:53] LABS: Glucose Point of Care 164 mg/dl (65-105)
[2024-01-20] VITALS (13 sets, daily range): BP systolic 148–192; BP diastolic 68–86; PULSE 83–103; RESP 18–20; TEMP 36.3–36.8; O2SAT 94–98
[2024-01-20] MEDS: AMPICILLIN SULB 3 GM/NS 100 ML 3 GM/100 ML VIAL IVPB ×5 (00:10→23:31)
[2024-01-20] MEDS: VANCOMYCIN 1,500 MG/NS 500 ML 1,500 MG/500 ML BAG 250 MG IVPB (01:51)
[2024-01-20 05:20] LABS: Hematocrit 42.3 % (42.0-52.0); Hemoglobin 13.1 g/dL (14.0-18.0); Mean Corpuscular Hemoglobin 27.4 pg (26-34); Mean Corpuscular Volume 88.5 fl (80-100); Mean Platelet Volume 9.8 fl (7.4-10.4); Platelet Count Result 286 k/mm3 (150-375); Red Blood Count 4.78 M/mm3 (4.6-6.20); Red Cell Distribution Width 16.3 % (11.5-14.5); White Blood Count 7.8 K/mm3 (4.5-10.0)
[2024-01-20 05:40] LABS: Alanine Aminotransferase 30 U/L (6-50); Alkaline Phosphatase 95 U/L (38-126); Anion Gap 5 mmol/L (8-16); Aspartate Amino Transferase 33 U/L (17-59); Bilirubin,Total 0.8 mg/dL (0.2-1.3); Blood Urea Nitrogen 13 mg/dL (9-20); Carbon Dioxide 31 mmol/L (22-30); Chloride 103 mmol/L (98-107); Estimated CRCL calculation 119 ml/min; Estimated Glomerular Filt Rate > 60; Glucose 118 mg/dL (65-110); Potassium 4.3 mmol/L (3.4-5.0); Sodium 139 mmol/L (137-145)
[2024-01-20] MEDS: IPRATROPIUM 0.5 MG/ALBUTEROL SULFATE 2.5 MG AMPUL.NEB 3 ML INHALATION ×4 (07:40→23:00)
[2024-01-20 08:04] LABS: Glucose Point of Care 122 mg/dl (65-105)
--- NOTE | 2024-01-20 08:13 | P.CDI_ITS ---
CDI Query Clarification Request Please clarify if there is a cause and effect relationship between cellulitis and diabetes mellitus. * There is a relationship between cellulitis and diabetes mellitus. * There is not a relationship between cellulitis and diabetes mellitus. * Unknown if there is a relationship between cellulitis and diabetes mellitus. <Marium Graham RN - Last Filed: 01/20/24 08:17> Clarified Diagnosis Clarified Diagnosis: Upon further examination and laboratory values cellulitis is likely not the source of patients rashed area. Raised area, with defined borders, does not present as a suggested cellulitis rash. More likely to be a plaque area as patient has ongoing psoriasis. <Emy Hua APRN - Last Filed: 01/20/24 11:51>
[2024-01-20] MEDS: ROSUVASTATIN 10 MG TABLET 20 MG PO (09:42)
[2024-01-20] MEDS: ASPIRIN 81 MG ENTERIC TABLET PO (09:43)
[2024-01-20] MEDS: GLIMEPIRIDE 2 MG TABLET PO (09:43)
[2024-01-20] MEDS: FLUCONAZOLE 100 MG TABLET 200 MG PO (09:43)
[2024-01-20] MEDS: FUROSEMIDE 20 MG TABLET PO (09:43)
[2024-01-20] MEDS: ENOXAPARIN 40 MG/0.4 ML SYRINGE SUB-Q (09:43)
[2024-01-20] MEDS: LOSARTAN POTASSIUM 50 MG TABLET PO ×2 (09:43→13:30)
--- NOTE | 2024-01-20 11:57 | P.PNIM_ITS ---
Progress Note: A&P Assessment and Plan (1) Cellulitis of left lower leg: Code(s): L03.116 - Cellulitis of left lower limb Status: Acute Assessment and Plan: * 01/19 IV abx Vanc and Unasyn initiated per antibiotic stewardship recommendation * PO FLuconazole added for antifungal * Hx of strep and MRSA infections * afebrile, WBC 7.1 * Blood cultures pending. * Monitor site for increased size of rash area * 01/20- Rash not suggestive of cellulitis. Appears as a localized, raised area, with defined borders and some dryness/ flaking skin noted to area. No increased or diffuse redness to Left thigh area. Rash remains localized and suggestive of new forming plaque. * continue to be afebrile and WBC 7.8. * Will de-esculate IV abx and trial topicals for this issue (2) Psoriasis: Code(s): L40.9 - Psoriasis, unspecified Status: Acute Assessment and Plan: * 01/20- Rash not suggestive of cellulitis. Appears as a localized, raised area, with defined borders and some dryness/ flaking skin noted to area. No increased or diffuse redness to Left thigh area. Rash remains localized and suggestive of new forming plaque. * continue to be afebrile and WBC 7.8. * Will de-esculate IV abx and trial topicals for this issue- * ordered lotrisone cream (3) Type 2 diabetes mellitus: Qualifiers: Diabetes mellitus intermediate insulin use: without rat exterminator use Diabetes mellitus complication status: with circulatory complication Diabetes mellitus complication detail: with peripheral angiopathy with gangrene Qualified Code(s): E11.52 - Type 2 diabetes mellitus with diabetic peripheral angiopathy with gangrene Code(s): E11.9 - Type 2 diabetes mellitus without complications Status: Acute Assessment and Plan: * 01/19 Continue glimepiride * HgbA1C- 6.8 * Sliding scale insulin ordered, Accu-Cheks and hypoglycemia protocol * AM glucose 105 * 01/20- AM glucose 118 * Continue to monitor (4) Chronic obstructive pulmonary disease: Code(s): J44.9 - Chronic obstructive pulmonary disease, unspecified Status: Acute Assessment and Plan: * 01/19-Wears 3L O2 via NC at home for baseline- Continue * Denies SOB, dyspnea * Keep O2 sats greater than 92% (5) Obstructive sleep apnea: Code(s): G47.33 - Obstructive sleep apnea (adult) (pediatric) Status: Acute Assessment and Plan: * 01/19- CPAP provided while hospitalized- RT (6) Hypertension: Code(s): I10 - Essential (primary) hypertension Status: Acute Assessment and Plan: * 01/19- Continue antihypertensive mediations * AM BP 159/69 * Monitor and adjust as needed. * 01/20- Hypertensive AM BP 187/77 * Losartan increased to 100mg Daily * Continue to monitor (7) Diabetic peripheral angiopathy: Code(s): E11.51 - Type 2 diabetes mellitus with diabetic peripheral angiopathy without gangrene Status: Acute Assessment and Plan: * 01/19- Right Lower extremity edema noted * EXAMINATION: US venous doppler LE RT: Patent right lower extremity veins. No evidence of deep venous thrombosis.Possible pseudoaneurysm of the proximal superficial femoral artery. * Patient denies pain to this area. Stated vein taken from right leg to try to save left leg. * Continue to monitor Time Spent With Patient Time with patient: 15 - 25 minutes Subjective Date/time seen: 01/20/24 0815 Interval history: Interval history: HPI narrative: ED 73-year-old with a history of a diabetes status post BKA on the
--- NOTE | 2024-01-20 11:57 | PM.IMPN ---
Progress Note: A&P Assessment and Plan (1) Cellulitis of left lower leg: Code(s): L03.116 - Cellulitis of left lower limb Status: Acute Assessment and Plan: 01/19 IV abx Vanc and Unasyn initiated per antibiotic stewardship recommendation PO FLuconazole added for antifungal Hx of strep and MRSA infections afebrile, WBC 7.1 Blood cultures pending. Monitor site for increased size of rash area 01/20- Rash not suggestive of cellulitis. Appears as a localized, raised area, with defined borders and some dryness/ flaking skin noted to area. No increased or diffuse redness to Left thigh area. Rash remains localized and suggestive of new forming plaque. continue to be afebrile and WBC 7.8. Will de-esculate IV abx and trial topicals for this issue (2) Psoriasis: Code(s): L40.9 - Psoriasis, unspecified Status: Acute Assessment and Plan: 01/20- Rash not suggestive of cellulitis. Appears as a localized, raised area, with defined borders and some dryness/ flaking skin noted to area. No increased or diffuse redness to Left thigh area. Rash remains localized and suggestive of new forming plaque. continue to be afebrile and WBC 7.8. Will de-esculate IV abx and trial topicals for this issue- ordered lotrisone cream (3) Type 2 diabetes mellitus: Qualifiers: Diabetes mellitus detention insulin use: without detention use Diabetes mellitus complication status: with circulatory complication Diabetes mellitus complication detail: with peripheral angiopathy with gangrene Qualified Code(s): E11.52 - Type 2 diabetes mellitus with diabetic peripheral angiopathy with gangrene Code(s): E11.9 - Type 2 diabetes mellitus without complications Status: Acute Assessment and Plan: 01/19 Continue glimepiride HgbA1C- 6.8 Sliding scale insulin ordered, Accu-Cheks and hypoglycemia protocol AM glucose 105 01/20- AM glucose 118 Continue to monitor (4) Chronic obstructive pulmonary disease: Code(s): J44.9 - Chronic obstructive pulmonary disease, unspecified Status: Acute Assessment and Plan: 01/19-Wears 3L O2 via NC at home for baseline- Continue Denies SOB, dyspnea Keep O2 sats greater than 92% (5) Obstructive sleep apnea: Code(s): G47.33 - Obstructive sleep apnea (adult) (pediatric) Status: Acute Assessment and Plan: 01/19- CPAP provided while hospitalized- RT (6) Hypertension: Code(s): I10 - Essential (primary) hypertension Status: Acute Assessment and Plan: 01/19- Continue antihypertensive mediations AM BP 159/69 Monitor and adjust as needed. 01/20- Hypertensive AM BP 187/77 Losartan increased to 100mg Daily Continue to monitor (7) Diabetic peripheral angiopathy: Code(s): E11.51 - Type 2 diabetes mellitus with diabetic peripheral angiopathy without gangrene Status: Acute Assessment and Plan: 01/19- Right Lower extremity edema noted EXAMINATION: US venous doppler LE RT: Patent right lower extremity veins. No evidence of deep venous thrombosis.Possible pseudoaneurysm of the proximal superficial femoral artery. Patient denies pain to this area. Stated vein taken from right leg to try to save left leg. 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 Patient states that it has been ongoing for past few days. He was recently admitted to [facility] for cellulitis of some right lower extremity. Patient states that he was given vancomycin on day 1 and later was switched over to ampicillin. He stated he grew strep in his blood prese
[2024-01-20 12:13] LABS: Glucose Point of Care 154 mg/dl (65-105)
--- NOTE | 2024-01-20 13:40 | PC.NURSE ---
On 01/20/24, the student, [Cheryl Ruiz], provided care and completed [facility] documentation on this patient. I have reviewed the student's documentation and agree with the findings.
[2024-01-20 17:01] LABS: Glucose Point of Care 140 mg/dl (65-105)
[2024-01-20] MEDS: SODIUM CHLORIDE 0.9% IV 1,000 ML 75 ML IV CONT (17:30)
[2024-01-20] MEDS: BETAMETHASONE/CLOTRIMAZOLE CR 15 GM TUBE 1 APPLIC TOPICAL (20:28)
[2024-01-20 22:41] LABS: Glucose Point of Care 123 mg/dl (65-105)
[2024-01-21] VITALS (10 sets, daily range): BP systolic 151–179; BP diastolic 76–83; PULSE 69–90; RESP 17–20; TEMP 36.3–36.4; O2SAT 96–99
[2024-01-21 05:12] LABS: Hematocrit 40.5 % (42.0-52.0); Hemoglobin 12.2 g/dL (14.0-18.0); Mean Corpuscular HGB Conc 30.1 g/dl (32-36); Mean Corpuscular Hemoglobin 26.8 pg (26-34); Mean Platelet Volume 9.7 fl (7.4-10.4); Platelet Count Result 255 k/mm3 (150-375); Red Blood Count 4.55 M/mm3 (4.6-6.20); Red Cell Distribution Width 15.9 % (11.5-14.5); White Blood Count 6.9 K/mm3 (4.5-10.0)
[2024-01-21 05:33] LABS: Alanine Aminotransferase 33 U/L (6-50); Albumin Level 3.9 g/dL (3.5-5.1); Alkaline Phosphatase 88 U/L (38-126); Anion Gap 5 mmol/L (8-16); Aspartate Amino Transferase 33 U/L (17-59); Bilirubin,Total 0.8 mg/dL (0.2-1.3); Blood Urea Nitrogen 11 mg/dL (9-20); Calcium 9.1 mg/dL (8.4-10.2); Carbon Dioxide 31 mmol/L (22-30); Chloride 103 mmol/L (98-107); Estimated CRCL calculation 118 ml/min; Estimated Glomerular Filt Rate > 60; Glucose 106 mg/dL (65-110); Potassium 4.1 mmol/L (3.4-5.0); Sodium 139 mmol/L (137-145)
[2024-01-21] MEDS: SODIUM CHLORIDE 0.9% IV 1,000 ML 75 ML IV CONT (05:37)
[2024-01-21] MEDS: AMPICILLIN SULB 3 GM/NS 100 ML 3 GM/100 ML VIAL IVPB ×2 (05:39→12:10)
[2024-01-21 07:58] LABS: Glucose Point of Care 126 mg/dl (65-105)
[2024-01-21] MEDS: BETAMETHASONE/CLOTRIMAZOLE CR 15 GM TUBE 1 APPLIC TOPICAL (08:15)
[2024-01-21] MEDS: GLIMEPIRIDE 2 MG TABLET PO (08:15)
[2024-01-21] MEDS: ROSUVASTATIN 10 MG TABLET 20 MG PO (08:15)
[2024-01-21] MEDS: LOSARTAN POTASSIUM 100 MG TABLET PO (08:15)
[2024-01-21] MEDS: ENOXAPARIN 40 MG/0.4 ML SYRINGE SUB-Q (08:15)
[2024-01-21] MEDS: FUROSEMIDE 20 MG TABLET PO (08:15)
[2024-01-21] MEDS: ASPIRIN 81 MG ENTERIC TABLET PO (08:15)
[2024-01-21 11:56] LABS: Glucose Point of Care 184 mg/dl (65-105)
--- NOTE | 2024-01-21 14:10 | P.DS_ITS ---
DS: Admitting Diagnosis Discharge Date 01/21/24 Admitting Diagnosis Skin/Rash DS: Discharge Diagnosis Discharge Diagnosis (1) Fungal dermatitis: Code(s): B36.9 - Superficial mycosis, unspecified Status: Acute Assessment and Plan: * Patient presented with area redness and burning on the left thigh. * Initially thought to be cellulitis as patient has hx of this condition * Rash is raise localized, raised area, with defined borders and some dryness/ flaking skin noted to area. No increased or diffuse redness to Left thigh area. Rash lies in area that patient's prosthetic leg/sleeve remains in frequent contact. * Rash remains localized and suggestive of fungal area new forming plaque. * Lotrisone cream utilized and provided effective results as area is less red on presentation today and patient expressed area is no longer burning. * Suggest that patient follow up with dermatology for his ongoing psoriasis and these fungal issues. * Continue Lotrisone at discharge and follow up with PCP/Derm (2) Cellulitis of left lower leg: Code(s): L03.116 - Cellulitis of left lower limb Status: Acute Assessment and Plan: * 01/19 IV abx Vanc and Unasyn initiated per antibiotic stewardship recommendation * PO FLuconazole added for antifungal * Hx of strep and MRSA infections * afebrile, WBC 7.1 * Blood cultures pending. * Monitor site for increased size of rash area * 01/20- Rash not suggestive of cellulitis. Appears as a localized, raised area, with defined borders and some dryness/ flaking skin noted to area. No increased or diffuse redness to Left thigh area. Rash remains localized and suggestive of new forming plaque. * continue to be afebrile and WBC 7.8. * Will de-esculate IV abx and trial topicals for this issue * 01/21: Afebrile. WBC 6.9. IV abx discontinued * Blood cultures pending but no growth up to date * Patient utilized Lotrisone cream throughout the night and today. Area is less red. Patient stated that area no longer kim or stings. Patient express that area has decreased in size. * Due to ineffectiveness of IV abx on rash, no elevated WBC, afebrile area, and effectiveness of topical Lotrisone cellulitis is R/O cause is most likely fungal in nature. Patient educated to monitor area for increase. * Suggest that patient follow up with dermatology for his ongoing psoriasis and these fungal issues. (3) Psoriasis: Code(s): L40.9 - Psoriasis, unspecified Status: Acute Assessment and Plan: * 01/20- Rash not suggestive of cellulitis. Appears as a localized, raised area, with defined borders and some dryness/ flaking skin noted to area. No increased or diffuse redness to Left thigh area. Rash remains localized and suggestive of new forming plaque. * continue to be afebrile and WBC 7.8. * Will de-esculate IV abx and trial topicals for this issue- * ordered lotrisone cream * 01/21: Rash is smaller today and remains localized with less redness. suggestive of fungal area new forming plaque. * Lotrisone cream utilized and provided effective results as area is less red on presentation today and patient expressed area is no longer burning. * Suggest that patient follow up with dermatology for his ongoing psoriasis and these fungal issues. * Continue Lotrisone at discharge and follow up with PCP/Derm (4) Type 2 diabetes mellitus: Qualifiers: Diabetes mellitus nursing home insulin use: without buttermaker continuous churn use Diabetes mellitus complication status: with circulatory complication Diabetes mellitus complication detail: with peripheral angiopathy with gangre
--- NOTE | 2024-01-21 14:10 | PM.DS ---
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 Initially thought to be cellulitis as patient has hx of this condition Rash is raise localized, raised area, with defined borders and some dryness/ flaking skin noted to area. No increased or diffuse redness to Left thigh area. Rash lies in area that patient's prosthetic leg/sleeve remains in frequent contact. Rash remains localized and suggestive of fungal area new forming plaque. Lotrisone cream utilized and provided effective results as area is less red on presentation today and patient expressed area is no longer burning. Suggest that patient follow up with dermatology for his ongoing psoriasis and these fungal issues. Continue Lotrisone at discharge and follow up with PCP/Derm (2) Cellulitis of left lower leg: Code(s): L03.116 - Cellulitis of left lower limb Status: Acute Assessment and Plan: 01/19 IV abx Vanc and Unasyn initiated per antibiotic stewardship recommendation PO FLuconazole added for antifungal Hx of strep and MRSA infections afebrile, WBC 7.1 Blood cultures pending. Monitor site for increased size of rash area 01/20- Rash not suggestive of cellulitis. Appears as a localized, raised area, with defined borders and some dryness/ flaking skin noted to area. No increased or diffuse redness to Left thigh area. Rash remains localized and suggestive of new forming plaque. continue to be afebrile and WBC 7.8. Will de-esculate IV abx and trial topicals for this issue 01/21: Afebrile. WBC 6.9. IV abx discontinued Blood cultures pending but no growth up to date Patient utilized Lotrisone cream throughout the night and today. Area is less red. Patient stated that area no longer kim or stings. Patient express that area has decreased in size. Due to ineffectiveness of IV abx on rash, no elevated WBC, afebrile area, and effectiveness of topical Lotrisone cellulitis is R/O cause is most likely fungal in nature. Patient educated to monitor area for increase. Suggest that patient follow up with dermatology for his ongoing psoriasis and these fungal issues. (3) Psoriasis: Code(s): L40.9 - Psoriasis, unspecified Status: Acute Assessment and Plan: 01/20- Rash not suggestive of cellulitis. Appears as a localized, raised area, with defined borders and some dryness/ flaking skin noted to area. No increased or diffuse redness to Left thigh area. Rash remains localized and suggestive of new forming plaque. continue to be afebrile and WBC 7.8. Will de-esculate IV abx and trial topicals for this issue- ordered lotrisone cream 01/21: Rash is smaller today and remains localized with less redness. suggestive of fungal area new forming plaque. Lotrisone cream utilized and provided effective results as area is less red on presentation today and patient expressed area is no longer burning. Suggest that patient follow up with dermatology for his ongoing psoriasis and these fungal issues. Continue Lotrisone at discharge and follow up with PCP/Derm (4) Type 2 diabetes mellitus: Qualifiers: Diabetes mellitus middle or intermediate school principal insulin use: without middle or intermediate school principal use Diabetes mellitus complication status: with circulatory complication Diabetes mellitus complication detail: with peripheral angiopathy with gangrene Qualified Code(s): E11.52 - Type 2 diabetes mellitus with diabetic peripheral angiopathy with gangrene Code(s): E11.9 - Type 2 diabetes mellitus without complications Status: Acute Assessment and Plan: 01/19 Continue glimepiride HgbA1C- 6.8 Sliding scale insulin ordered, Accu-Cheks and hypoglycemia protocol AM glucose 105 01/20- AM glucose 1
[2024-01-21] MEDS: METOPROLOL SUCCINATE EXT REL 25 MG TABCR PO (14:39)
[2024-01-21] MEDS: IPRATROPIUM 0.5 MG/ALBUTEROL SULFATE 2.5 MG AMPUL.NEB 3 ML INHALATION (15:00)
== END 2024-01-21 15:25 | disposition home or self-care (01) | DRG 607 ==
LOC: ANHED 13:05 → ANH3MEDSUR 19:20 → ANH2MED 20:49
PROVIDERS: Physician Assistant; Admitting Provider Internal Medicine; Emergency Provider Family Medicine; PCP Family Medicine; Visit Provider Nurse Practitioner Family
DX: B36.9 Superficial mycosis, unspecified (principal); L40.0 Psoriasis vulgaris; E11.51 Type 2 diabetes mellitus with diabetic peripheral angiopathy without gangrene; E11.42 Type 2 diabetes mellitus with diabetic polyneuropathy; E78.2 Mixed hyperlipidemia; J44.9 Chronic obstructive pulmonary disease, unspecified; K21.9 Gastro-esophageal reflux disease without esophagitis; G47.33 Obstructive sleep apnea (adult) (pediatric); F51.9 Sleep disorder not due to a substance or known physiological condition, unspecified; Z89.512 Acquired absence of left leg below knee; Z79.82 Long term (current) use of aspirin; Z87.891 Personal history of nicotine dependence
CPT/HCPCS: 36415; 80048; 80053; 80076; 82948; 83036; 83735; 85025; 85027; 85652; 86140; 87040; 93971; 94640; 99285; A9270; J0295; J0692; J1650; J1836; J3370; J7030

== ENCOUNTER 2024-02-11 10:16 | Outpatient (CLI) | payer MEDICARE, SELFPAY ==
[2024-02-11 14:48] LABS: Cholesterol 153 mg/dL (0-200); HDL Direct 50 mg/dL; Triglycerides 202 mg/dL (<150)
[2024-02-11 15:26] LABS: Prostate Specific Antigen 0.7 ng/mL (< OR = 4.0)
[2024-02-11 15:27] LABS: LDL Cholesterol Direct 41 mg/dL
== END 2024-02-11 10:17 | disposition home or self-care (01) ==
LOC: ANHGOSHLAB 10:18
PROVIDERS: PCP Family Medicine; Visit Provider Family Medicine
DX: Z12.5 Encounter for screening for malignant neoplasm of prostate (principal); E78.2 Mixed hyperlipidemia
CPT/HCPCS: 36415; 80061; 84153; G0103

== ENCOUNTER 2024-06-23 07:07 | Outpatient (RCR) | payer MEDICARE, SELFPAY ==
[2024-05-17 11:51] VITALS: BMI 39.5
--- NOTE | 2024-07-21 10:44 | PCWOUND ---
Patient's called to cancel appointment. States she is taking him to the ER due to breathing difficulties. No follow up made at this time. Spouse or patient to contact at a later time.
== END 2024-08-15 23:59 | disposition home or self-care (01) ==
LOC: ANHWOC 07:07
PROVIDERS: PCP Family Medicine; Visit Provider Family Medicine
DX: T87.89 Other complications of amputation stump (principal); L97.922 Non-pressure chronic ulcer of unspecified part of left lower leg with fat layer exposed; Z89.512 Acquired absence of left leg below knee
CPT/HCPCS: 99213; 99214; A9270; G0463

== ENCOUNTER 2024-07-21 11:29 | Emergency (ER) | payer MEDICARE, SELFPAY ==
[2024-07-21] VITALS (11 sets, daily range): BP systolic 145–180; BP diastolic 80–93; PULSE 93–99; RESP 16–24; TEMP 36.5–36.9; O2SAT 91–97
--- NOTE | ~2024-07-21 | XR_ITS ---
EXAMINATION: XR chest 2V DATE: 07/21/2024 13:00 INDICATION: Shortness of breath. TECHNIQUE: Frontal and lateral views of the chest were obtained. COMPARISON: Chest 2 views 11/10/2019, chest CT 09/10/2023 FINDINGS: There is no pneumonia, pleural effusion, or pneumothorax. There are calcified pleural plaqu es bilaterally, which may be seen with asbestos exposure. The heart size is normal. There are promine nt pericardial fat pads. Calcified left hilar lymph nodes are consistent with old granulomatous disea se. IMPRESSION: 1. No acute cardiopulmonary disease. Reviewed, dictated and finalized at location A.
--- NOTE | 2024-07-21 11:55 | ECG_ITS ---
Test Date: 2024-07-21 12:00:22 Measurements Intervals [place] Rate: 97 P: -26 NH: 176 QRS: -39 QRSD: 84 T: 38 QT: 303 QTc: 387 Interpretive Statements SINUS RHYTHM MARKED LEFT AXIS DEVIATION [QRS AXIS < -30] LOW QRS VOLTAGE IN PRECORDIAL LEADS [QRS DEFLECTION < 1.0 mV IN CHEST LEADS] CANNOT RULE OUT PREVIOUS ANTERIOR INFARCTION ABNORMAL ECG No previous ECG available for comparison Electronically Signed On 07-21-2024 12:58:33 CDT by Earl Frazier M.D.
[2024-07-21 12:21] LABS: Basophils Percent Auto 0.5 % (0.2-1.2); Eosinophils Absolute Auto 0.2 K/mm3 (0-0.3); Eosinophils Percent Auto 2.7 % (0-4.4); Hematocrit 39.8 % (42.0-52.0); Hemoglobin 12.5 g/dL (14.0-18.0); Immature Granulocyte Absolute 0.02 K/mm3 (0.00-0.031); Immature Granulocyte Percent A 0.3 % (0-0.5); Lymphocytes Absolute Auto 0.84 K/mm3 (0.9-3.2); Lymphocytes Percent Auto 11.2 % (18.3-44.2); Mean Corpuscular HGB Conc 31.4 g/dl (32-36); Mean Corpuscular Hemoglobin 28.7 pg (26-34); Mean Corpuscular Volume 91.3 fl (80-100); Mean Platelet Volume 9.8 fl (7.4-10.4); Monocytes Absolute Auto 0.6 K/mm3 (0.1-0.6); Monocytes Percent Auto 8.4 % (2.6-8.5); Neutrophils Absolute Auto 5.8 K/mm3 (1.3-6.7); Neutrophils Percent Auto 76.9 % (45.5-73.1); Platelet Count Result 234 k/mm3 (150-375); Red Blood Count 4.36 M/mm3 (4.6-6.20); Red Cell Distribution Width 15.5 % (11.5-14.5); White Blood Count 7.5 K/mm3 (4.5-10.0)
[2024-07-21 12:33] LABS: Alanine Aminotransferase 27 U/L (6-50); Albumin Level 4.1 g/dL (3.5-5.1); Alkaline Phosphatase 95 U/L (38-126); Anion Gap 9 mmol/L (4-12); Aspartate Amino Transferase 27 U/L (17-59); Bilirubin,Total 0.4 mg/dL (0.2-1.3); Blood Urea Nitrogen 23 mg/dL (9-20); Calcium 8.5 mg/dL (8.4-10.2); Carbon Dioxide 29 mmol/L (22-30); Chloride 98 mmol/L (98-107); Estimated CRCL calculation 103 ml/min; Estimated Glomerular Filt Rate > 60; Glucose 176 mg/dL (65-110); Potassium 4.7 mmol/L (3.4-5.0); Sodium 136 mmol/L (137-145)
[2024-07-21 13:15] LABS: Influenza A QL RT-PCR Negative (Negative); Influenza B QL RT-PCR Negative (Negative); RSV RNA, RT-PCR Negative (Negative); SARS-CoV-2 RNA PCR Negative (Negative)
[2024-07-21] MEDS: IPRATROPIUM 0.5 MG/ALBUTEROL SULFATE 2.5 MG AMPUL.NEB 3 ML INHALATION (13:49)
--- NOTE | 2024-07-21 13:56 | ED.SOB ---
HPI - SOB/Dyspnea General Chief Complaint: Shortness of Breath/Dyspnea Stated Complaint: shortness of breath, wears O2 Time Seen by Provider: 07/21/24 12:51 History of Present Illness HPI Narrative: Patient is a 74-year-old male with history of COPD and asbestosis who presents ER with increased shortness of breath. Ongoing for couple weeks. Today he noticed that he was becoming hypoxic to 82% while walking to the car while wearing his home 3 L. He turned up to 4.5 L. He reports he has had a new cough over last couple of days. No fevers or chills or sweats. No chest pain or chest pressure. Denies orthopnea. He has a left AKA. Chronic right lower extremity edema that is unchanged. Related Data Home Medications Medication Instructions Recorded Confirmed aspirin 81 mg capsule 81 mg PO DAILY 03/12/23 06/16/24 gentamicin 0.1 % topical cream 1 applic topical TID 06/16/24 06/16/24 sodium chloride 0.9 % topical gel 1 applic topical BID 06/16/24 06/16/24 (Normlgel) Allergies Allergy/AdvReac Type Severity Reaction Status Date / Time No Known Allergies Allergy Verified 06/16/24 14:32 Review of Systems Review of Systems: All systems reviewed & are unremarkable except as noted in HPI and below Constitutional: Constitutional: Reports no additional constitutional complaints ENT: Reports system reviewed and no additional complaints, except as documented Cardiovascular: Cardiovascular: Reports no additional cardiovascular complaints Respiratory: Respiratory: Reports no additional respiratory complaints Gastrointestinal: Gastrointestinal: Reports no additional gastrointestinal complaints [facility] Past Medical History Medical History Chronic obstructive pulmonary disease Diabetic peripheral angiopathy Fungal dermatitis Gastroesophageal reflux Hypertension Mixed hyperlipidemia MRSA infection Obesity Obstructive sleep apnea Psoriasis Thromboangiitis obliterans Type 2 diabetes mellitus Surgical History Surgical History History of appendectomy History of left below knee amputation Family History Family History Mother Patient's mother is Infection Father Patient's father is Stomach cancer Social History Social History Social History: Surrogate medical decision maker: Rolanda Kelley, spouse. Code status: Full code. Smoking status: Former smoker Tobacco type: cigarettes Alcohol intake: former Substance use: former Substance use type: marijuana Last use: 2009 Do You Feel Safe in your Home?: Yes Lack of Transportation: No Lack of Food: Never True Current Housing: I Have Housing Concerned About Future Housing: No Difficulty Paying Gas/Electric Bills: No Difficulty Paying for Meds: No Currently Unemployed: No Education: Trade/Vocational Certificate Difficulty w/ Childcare or Family Care: No Living arrangements: with family Occupation/Education: retired Spiritual care concerns: No Exam Narrative: GENERAL: Chronically ill-appearing, obese, and in no acute distress. HEAD: Normocephalic, atraumatic. ENT: Mucous membranes moist. NECK: Supple. CHEST: Clear to auscultation. No respiratory distress. HEART: Regular rate and rhythm. Normal peripheral pulses. EXTREMITIES: Normal range of motion. No edema. left AKA. Mild irritation the distal end of the stump. SKIN: Warm, dry, no rash. NEURO: Alert and oriented x3. PSYCH: Normal mood and affect. Course Vital Signs Vital signs: Vital Signs Temperature 97.7 F 07/21/24 11:51 Pulse Rate 99 07/21/24 11:51 Respiratory Rate 20 07/21/24 11:51 Blood Pressure 154/81 H 07/21/24 11:51 Pulse Oximetry 91 07/21/24 11:51 Oxygen Delivery Nasal Cristobal
--- NOTE | 2024-07-21 14:46 | PC.NURSE ---
while patient was sitting heart rate was 100 and oxygen was 99 when walking heart rate was 70 and oxygen was at 90
== END 2024-07-21 16:30 | disposition home or self-care (01) ==
PROVIDERS: Emergency Medicine; Emergency Provider Emergency Medicine; PCP Family Medicine
DX: J44.1 Chronic obstructive pulmonary disease with (acute) exacerbation (principal); I10 Essential (primary) hypertension; E11.9 Type 2 diabetes mellitus without complications; Z99.81 Dependence on supplemental oxygen; Z20.822 Contact with and (suspected) exposure to COVID-19; Z87.891 Personal history of nicotine dependence
CPT/HCPCS: 36415; 71046; 80053; 85025; 87637; 93005; 94640; 99284

== ENCOUNTER 2024-08-04 13:44 | Outpatient (CLI) | payer MEDICARE, SELFPAY ==
--- NOTE | ~2024-08-04 | XR_ITS ---
XR chest 2V 08/04/2024 14:10 Indication: Dyspnea. COPD. Procedure: 2 view chest Comparison: Comparison to multiple prior studies sequentially, with oldest reviewed study dated 06/17. Findings: Cardiomegaly. Mild interstitial edema. No pleural effusion. The lungs are hyperinflated whi ch is consistent with, but not diagnostic of chronic obstructive pulmonary disease. Moderate thoracic spondylosis. Impression: 1: Cardiomegaly with mild interstitial edema. Reviewed, dictated and finalized at location B. Impression: 1: Cardiomegaly with mild interstitial edema.
== END 2024-08-04 13:45 | disposition home or self-care (01) ==
PROVIDERS: PCP Family Medicine; Visit Provider Family Medicine
DX: J39.8 Other specified diseases of upper respiratory tract (principal); I51.7 Cardiomegaly
CPT/HCPCS: 71046

== ENCOUNTER 2024-08-12 20:31 | Inpatient (IN) | payer MEDICARE, SELFPAY ==
--- NOTE | ~2024-08-12 | US_ITS ---
EXAMINATION: US venous doppler LE RT DATE: 08/13/2024 10:32 INDICATION: Right lower limb swelling TECHNIQUE: Grayscale ultrasound images without and with compression and Doppler ultrasound images of the right lower extremity veins were obtained. COMPARISON: 01/19/2024 FINDINGS: The visualized portions of right common femoral vein, profunda (deep) femoral vein, femoral vein, pop liteal vein, peroneal trunk, posterior tibial veins, peroneal veins, gastrocnemius vein and greater s aphenous vein outflow remain patent. Incidental fusiform aneurysm of the proximal right superficial f emoral artery measuring up to 1.9 cm in maximal diameter. IMPRESSION: 1. No deep venous thrombosis in the right lower limb. 2. 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 Reviewed, dictated and finalized at location A.
--- NOTE | ~2024-08-12 | CT_ITS ---
EXAMINATION: CTA chest PE protocol DATE: 08/12/2024 22:53 INDICATION: Shortness of breath TECHNIQUE: Computed tomography (CT) pulmonary angiogram of the chest was performed with 100 mL Omnipa que-350 intravenous contrast. Additional 3D reconstructions utilizing coronal maximum intensity proje ction (MIP) were performed. Automated exposure control and iterative reconstruction technique were em ployed. The dose-length product was 959.23 mGy-cm. COMPARISON: 09/10/2023 and 01/24/2018 FINDINGS: No pulmonary embolism. Mild emphysema. Again seen are scattered bilateral calcified pleural plaques i n the mid and lower lungs consistent with prior asbestos exposure. No pneumonia, pulmonary edema or p leural effusion. Again seen are several 4 mm or smaller scattered calcified and noncalcified pulmonar y nodules likely sequela of old granulomatous disease heart size is normal. Atherosclerotic coronary artery calcifications. No pericardial effusion. Thoracic aorta is normal in caliber with no dissectio n. No pathologically enlarged thoracic lymphadenopathy. Right pectoral subcutaneous 2 cm likely sebac eous/epidermoid cyst. Multiple calcified splenic granulomata. Mild lower thoracic dextrocurvature wit h moderate spondylosis. IMPRESSION: 1. No pulmonary masses or other acute cardiopulmonary disease. 2. Mild emphysema and scattered bilateral calcified pleural plaques consistent with prior asbestos ex posure. Reviewed, dictated and finalized at location A. IMPRESSION: 1. No pulmonary masses or other acute cardiopulmonary disease. 2. Mild emphysema and scattered bilateral calcified pleural plaques consistent with prior asbestos exposure.
--- NOTE | ~2024-08-12 | XR_ITS ---
XR chest 1V portable Ordering provider: Alli Karimi MD History: 74 years Male with . sob . Comparison: August 04, 2024 FINDINGS: MEDIASTINUM: The cardiac silhouette is slightly enlarged. Congestive puma. LUNGS: No infiltrates, effusions or pneumothorax. Blunting of the left costophrenic angle which may b e due to atelectasis versus effusion. No change from previous examination. Bilateral interstitial lorin nges. OTHER: No free air under the diaphragm. Degenerative spine. IMPRESSION: No change from previous examination. Reviewed, dictated and finalized at location A.
[2024-08-12 20:34] VITALS: BP 161/74; PULSE 122; RESP 27; TEMP 37.4; O2SAT 94
--- NOTE | 2024-08-12 20:40 | ECG_ITS ---
Test Date: 2024-08-12 20:44:28 Measurements Intervals [place] Rate: 114 P: -61 MA: 146 QRS: -65 QRSD: 96 T: 58 QT: 297 QTc: 410 Interpretive Statements SINUS OR ECTOPIC ATRIAL TACHYCARDIATACHYCARDIA LEFT AXIS DEVIATION LOW QRS VOLTAGE IN PRECORDIAL LEADS INCOMPLETE RIGHT BUNDLE BRANCH BLOCK ANTERIOR INFARCT, AGE INDETERMINATE INFERIOR INFARCT, AGE INDETERMINATE BASELINE ARTIFACT- I, III, AVR, AVL, AVF ABNORMAL ECG Compared to ECG 07/21/2024 12:00:22 HEART RATE HAS INCREASED Electronically Signed On 08-13-2024 06:36:12 CDT by Roscoe Zuniga D.O.
[2024-08-12 21:00] VITALS: O2SAT 96
[2024-08-12 21:16] VITALS: BP 124/80; PULSE 117; RESP 23; O2SAT 97
[2024-08-12 21:31] VITALS: BP 148/75; PULSE 117; RESP 21; O2SAT 97
[2024-08-12 21:39] LABS: Basophils Percent Auto 0.2 % (0.2-1.2); Eosinophils Absolute Auto 0.1 K/mm3 (0-0.3); Eosinophils Percent Auto 0.6 % (0-4.4); Hemoglobin 13.1 g/dL (14.0-18.0); Immature Granulocyte Absolute 0.05 K/mm3 (0.00-0.031); Immature Granulocyte Percent A 0.4 % (0-0.5); Lymphocytes Absolute Auto 0.64 K/mm3 (0.9-3.2); Lymphocytes Percent Auto 5.2 % (18.3-44.2); Mean Corpuscular HGB Conc 32.8 g/dl (32-36); Mean Corpuscular Hemoglobin 29.2 pg (26-34); Mean Corpuscular Volume 89.3 fl (80-100); Monocytes Percent Auto 7.9 % (2.6-8.5); Neutrophils Absolute Auto 10.5 K/mm3 (1.3-6.7); Neutrophils Percent Auto 85.7 % (45.5-73.1); Platelet Count Result 276 k/mm3 (150-375); Red Blood Count 4.48 M/mm3 (4.6-6.20); Red Cell Distribution Width 14.9 % (11.5-14.5); White Blood Count 12.2 K/mm3 (4.5-10.0)
[2024-08-12 21:46] VITALS: BP 153/90; PULSE 119; RESP 22; O2SAT 96
[2024-08-12 21:49] LABS: Lactic Acid Reflex 1.9 mmol/L (0.7-2.0)
[2024-08-12 21:51] LABS: INR 0.9; Partial Thromboplastin Time 25.7 Seconds (22.3-36.8); Prothrombin Time 12.3 Seconds (11.1-14.7)
[2024-08-12 22:01] VITALS: BP 135/64; PULSE 119; RESP 23
[2024-08-12 22:06] LABS: Procalcitonin 0.2 ng/mL
[2024-08-12] MEDS: ACETAMINOPHEN 500 MG TABLET 1000 MG PO (22:23)
[2024-08-12] MEDS: SODIUM CHLORIDE 0.9% IV 1,000 ML 999 ML IV CONT (22:23)
[2024-08-12 22:33] LABS: Add Urine Microscopic? NO; Appearance Urine Clear (Clear); Bilirubin Urine Negative (Negative); Blood Urine Negative (Negative); Color Urine Yellow (Yellow); Glucose Urine UA Negative (Negative); Ketones Urine Negative (Negative); Leukocyte Esterase Ur Negative LEU/UL (Negative); Nitrate Urine Negative (Negative); Protein Urine Negative (Negative); Specific Grav Ur 1.015 (1.001-1.035); Urobilinogen Urine 0.2 mg/dL (<2.0)
[2024-08-12 23:00] LABS: Influenza A QL RT-PCR Negative (Negative); Influenza B QL RT-PCR Negative (Negative); RSV RNA, RT-PCR Negative (Negative); SARS-CoV-2 RNA PCR Negative (Negative)
--- NOTE | 2024-08-12 23:11 | ED.GENADULT ---
HPI - General Adult General Chief complaint: Shortness of Breath/Dyspnea Stated complaint: sob Time Seen by Provider: 08/12/24 21:24 History of Present Illness HPI narrative: Patient is a 74-year-old gentleman who presents emergency department with chief complaint of shortness of breath. Patient has prior history of COPD and asthma and reports that today he started getting more short of breath. Patient reports had a productive cough at home reports that this had increase his oxygen to 4 L from his baseline of 2-3 Related Data Home Medications Medication Instructions Recorded Confirmed aspirin 81 mg capsule 81 mg PO DAILY 03/12/23 08/04/24 gentamicin 0.1 % topical cream 1 applic topical TID 06/16/24 08/04/24 sodium chloride 0.9 % topical gel 1 applic topical BID 06/16/24 08/04/24 (Normlgel) Allergies Allergy/AdvReac Type Severity Reaction Status Date / Time No Known Allergies Allergy Verified 08/12/24 21:00 Review of Systems Review of Systems: A 10 system review of systems was completed on the patient and is negative except for what is stated in the HPI. Nursing and ancillary documentation was reviewed. [facility]LY [facility] Past Medical History Medical History Chronic obstructive pulmonary disease Diabetic peripheral angiopathy Fungal dermatitis Gastroesophageal reflux Hypertension Mixed hyperlipidemia MRSA infection Obesity Obstructive sleep apnea Psoriasis Thromboangiitis obliterans Type 2 diabetes mellitus Surgical History Surgical History History of appendectomy History of left below knee amputation Family History Family History Mother Patient's mother is Infection Father Patient's father is Stomach cancer Social History Social History Social History: Surrogate medical decision maker: Rolanda Kelley, spouse. Code status: Full code. Smoking status: Former smoker Tobacco type: cigarettes Alcohol intake: former Substance use: former Substance use type: marijuana Last use: 2009 Do You Feel Safe in your Home?: Yes Lack of Transportation: No Lack of Food: Never True Current Housing: I Have Housing Concerned About Future Housing: No Difficulty Paying Gas/Electric Bills: No Difficulty Paying for Meds: No Currently Unemployed: No Education: Trade/Vocational Certificate Difficulty w/ Childcare or Family Care: No Living arrangements: with family Occupation/Education: retired Spiritual care concerns: No Exam Narrative: GENERAL: Well-appearing, well-nourished, and in no acute distress. HEAD: Normocephalic, atraumatic. EYES: PERRLA and EOMI. ENT: Nares clear, no rhinorrhea or epistaxis. Mucous membranes moist. NECK: Supple. CHEST: Clear to auscultation. No respiratory distress. HEART: Regular rate and rhythm. No murmur heard. Normal peripheral pulses. ABDOMEN: Soft, nontender, nondistended, normal active bowel sounds. EXTREMITIES: Normal range of motion. No edema. SKIN: Warm, dry, no rash. NEURO: No focal deficits. Alert and oriented x3. PSYCH: Normal mood and affect. Course Vital Signs Vital signs: Vital Signs Temperature 37.4 C 08/12/24 20:34 Pulse Rate 122 H 08/12/24 20:34 Respiratory Rate 27 H 08/12/24 20:34 Blood Pressure 161/74 H 08/12/24 20:34 Pulse Oximetry 94 08/12/24 20:34 Oxygen Delivery Nasal Cannula 08/12/24 20:34 Oxygen Flow Rate 4 08/12/24 20:34 Temperature 37.4 C 08/12/24 20:34 Pulse Rate 98 08/13/24 02:16 Respiratory Rate 28 H 08/13/24 02:16 Blood Pressure 169/78 H 08/13/24 02:16 Pulse Oximetry 97 08/13/24 02:16 Oxygen Delivery Nasal Cannula 08/12/24 21:00 Oxygen Flow Rate 4 08/12/24 21:00
[2024-08-12] MEDS: methylPREDNISolone SOD SUCC 125 MG VIAL IV PUSH (23:38)
[2024-08-12 23:43] LABS: Alanine Aminotransferase 36 U/L (6-50); Albumin Level 3.9 g/dL (3.5-5.1); Alkaline Phosphatase 134 U/L (38-126); Anion Gap 7 mmol/L (4-12); Aspartate Amino Transferase 33 U/L (17-59); Bilirubin,Total 0.6 mg/dL (0.2-1.3); Blood Urea Nitrogen 19 mg/dL (9-20); Calcium 8.5 mg/dL (8.4-10.2); Carbon Dioxide 34 mmol/L (22-30); Chloride 93 mmol/L (98-107); Estimated CRCL calculation 82 ml/min; Estimated Glomerular Filt Rate > 60; Glucose 144 mg/dL (65-110); Magnesium 1.8 mg/dL (1.6-2.3); Potassium 4.3 mmol/L (3.4-5.0); Sodium 134 mmol/L (137-145)
[2024-08-12 23:53] LABS: NT Pro B Type Natriuretic Pept 85 pg/mL (19.9-100); Troponin I 0.014 ng/mL (0.000-0.034)
[2024-08-13] VITALS (17 sets, daily range): BP systolic 153–176; BP diastolic 67–92; PULSE 90–112; RESP 16–28; TEMP 36.7–37.3; O2SAT 94–98; BMI 38.5
[2024-08-13] MEDS: IPRATROPIUM 0.5 MG/ALBUTEROL SULFATE 2.5 MG AMPUL.NEB 3 ML INHALATION ×4 (00:01→19:22)
[2024-08-13 02:56] LABS: Troponin I < 0.012 ng/mL (0.000-0.034)
--- NOTE | 2024-08-13 05:18 | PM.IMHP ---
H&P: HPI History of Present Illness Date/Time: 08/13/24 05:18 Chief Complaint: Shortness of breath Narrative: Mr. Kelley is a 74-year-old male with a past medical history obesity, prior tobacco abuse, COPD on 2 L nasal cannula at home continuous, [id number] diabetes mellitus status post left BKA due to thrombo angiitis obliterans, chronic venous stasis of the right lower extremity, MENG, mixed hyperlipidemia, GERD who presents with shortness of breath. He is a fair historian and reported productive cough at home to the ER physician but to the senior technical writer did not report change in cough. He has been using nebulizer 3 times daily at home and does not have a mineral resources inspector. He is unsure which inhaler she takes but he takes them as prescribed he believes. He does not smoke. He lives with his and son and no one else smokes in the house. He is not subjected to mold or dust. He denies any chest pain. He thinks he had a fever around 100. But is not sure. ER evaluation demonstrated tachypnea with respiratory rate 24, tachycardia 105, blood pressure 153/73, he required 4 L nasal cannula to maintain pulse oximetry. Lab evaluation demonstrated WBC 12.2, hemoglobin 13.1, sodium 134, bicarb 34, BUN 19, serum creatinine 0.9, lactic acid 1.9, troponin negative x2, proBNP 85, urinalysis negative, quad viral screen negative, chest x-ray no acute abnormalities, chest CTA performed, official read pending, no acute infiltrate identified. He was given Solu-Medrol 125 mg IV x1, DuoNeb, 1 L normal saline bolus. After these therapies the patient reports he still feels short of breath but he rest comfortably sitting up in bed. He does endorse slightly increased right lower extremity edema since about a month ago after he was given prednisone. Review of Systems Review of Systems: All systems reviewed & are unremarkable except as noted in HPI and below (Subjective) FORMERLY [facility] Past Medical History Medical History Chronic obstructive pulmonary disease Diabetic peripheral angiopathy Fungal dermatitis Gastroesophageal reflux Hypertension Mixed hyperlipidemia MRSA infection Obesity Obstructive sleep apnea Psoriasis Thromboangiitis obliterans Type 2 diabetes mellitus Surgical History Surgical History History of appendectomy History of left below knee amputation Family History Family History Mother Patient's mother is Infection Father Patient's father is Stomach cancer Social History Social History Social History: Surrogate medical decision maker: Rolanda Kelley, spouse. Code status: Full code. Smoking status: Former smoker Tobacco type: cigarettes Alcohol intake: former Substance use: former Substance use type: marijuana Last use: 2009 Do You Feel Safe in your Home?: Yes Lack of Transportation: No Lack of Food: Never True Current Housing: I Have Housing Concerned About Future Housing: No Difficulty Paying Gas/Electric Bills: No Difficulty Paying for Meds: No Currently Unemployed: No Education: Trade/Vocational Certificate Difficulty w/ Childcare or Family Care: No Living arrangements: with family Occupation/Education: retired Spiritual care concerns: No Meds Home Medications and Allergies Home Medications Medication Instructions Recorded Confirmed Type 2 Knee selves, 4- 5 ply socks, 4- #1 ea 10/26/22 08/04/24 Rx 3 ply socks, 4- Anti-microbial socks aspirin 81 mg capsule 81 mg PO DAILY 03/12/23 08/04/24 History metformin 500 mg tablet 500 mg PO BID #180 tabs 05/03/23 08/04/24 Rx glimepiride 2 mg tablet 2 mg PO QAM #90 tabs 03/06/24 08/04/24 Rx rosuvastatin 20 mg tablet (Crestor) 20 mg PO GUSTAVO
[2024-08-13] MEDS: HEPARIN SODIUM 5,000 UNITS/ML VIAL 5000 UNITS SUB-Q ×3 (05:51→21:08)
--- NOTE | 2024-08-13 06:14 | ADMGEN ---
This patient, Frank Kelley III, was admitted to 3 Med Surg Room 311-01. Patient/family oriented to hospital policies and general routines including ID bracelet, bed and alarms, visiting hours, pain management, procedures, bathroom and other care routines, personal items, smoking policy, room service/diet, and visiting hours. Information on how to activate the Rapid Response Team has been discussed. Patient/Family are encouraged to report perceived risks to care and to ask questions if they do not understand what they are told or what they should do.
[2024-08-13 07:59] LABS: Glucose Point of Care 243 mg/dl (65-105)
[2024-08-13] MEDS: INSULIN ASPART (*BKC) 100 UNITS/ML SUB-Q ×4 (08:44→21:08)
[2024-08-13] MEDS: methylPREDNISolone SOD SUCC 125 MG VIAL 60 MG IV PUSH ×2 (08:45→16:51)
[2024-08-13 11:30] LABS: Glucose Point of Care 327 mg/dl (65-105)
[2024-08-13] MEDS: ROSUVASTATIN 20 MG TABLET PO (12:08)
[2024-08-13] MEDS: ASPIRIN 81 MG ENTERIC TABLET PO (12:08)
[2024-08-13] MEDS: GLIMEPIRIDE 2 MG TABLET PO (12:08)
--- NOTE | 2024-08-13 15:37 | PM.IMPN ---
Progress Note: A&P Assessment and Plan (1) Acute exacerbation of chronic obstructive pulmonary disease: Code(s): J44.1 - Chronic obstructive pulmonary disease with (acute) exacerbation Status: Chronic Assessment and Plan: quad viral screen negative chest x-ray no acute abnormalities, chest CTA performed negative for acute process or PE will continue DuoNebs continue Solu-Medrol BC drawn pending echo ordered patient is on 3 L nasal cannula at baseline, now requiring 4 L work to wean as able will need pulmonology follow-up and possibly titration of his controller medications on discharge (2) Acute hypoxic respiratory failure: Code(s): J96.01 - Acute respiratory failure with hypoxia Status: Acute Assessment and Plan: see above (3) Hypertension: Code(s): I10 - Essential (primary) hypertension Status: Chronic Assessment and Plan: continue med continue monitor Plan right lower extremity venous Doppler US negative for DVT, shows consistent 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 This was also seen on 01/19/24. patient should follow-up with PCP and possible vascular referral if needed. Subjective Date/time seen: 08/13/24 15:37 Interval history: Patient is sitting up in bed in no acute distress on exam. he endorses that he still feels mild shortness of breath, he is on 4 L by nasal up but is on 3 L at home. He reports that he is coughing intermittently but there is no sputum. Denies chest pain. will continue DuoNebs and Solu-Medrol, await echo to be done tomorrow. BC drawn and pending. Review of Systems Review of Systems: All systems reviewed & are unremarkable except as noted in HPI and below (Subjective) Exam Const: General: comfortable and no acute distress Other: Obese Eyes: Pupils: Equal, round and reactive pupils present EOM: EOMs intact bilaterally Neck: Neck: supple Resp: Effort & Inspection: normal respiratory effort Other: Diminished lung sounds diffusely. Scant dry crackles Cardio: Rate: regular rate Rhythm: regular rhythm GI: Auscultation: normal bowel sounds Skin: General skin exam: erythema (chronic on right calf post vascular surgery ) Neuro: Cranial nerves: Yes Equal, round and reactive pupils present Speech: normal speech Extrem: General: edema Other: Left BKA, right lower extremity 1 to 2+ pitting edema with erythema. Psych: Mental Status: mental status grossly normal Affect: normal affect Objective Data Vital Signs Vital Signs: Vital Signs - 24 hr 08/12/24 20:34 08/12/24 21:00 08/12/24 21:16 Temperature 99.4 F Pulse Rate 122 H 117 H Respiratory Rate 27 H 23 H Blood Pressure 161/74 H 124/80 Pulse Oximetry 94 96 97 Oxygen Delivery Nasal Cannula Nasal Cannula Oxygen Flow Rate 4 4 Fraction of Inspired Oxygen 08/12/24 21:31 08/12/24 21:46 08/12/24 22:01 Temperature Pulse Rate 117 H 119 H 119 H Respiratory Rate 21 H 22 H 23 H Blood Pressure 148/75 H 153/90 H 135/64 Pulse Oximetry 97 96 Oxygen Delivery Oxygen Flow Rate Fraction of Inspired Oxygen 08/13/24 00:03 08/13/24 00:11 08/13/24 02:01 Temperature Pulse Rate 104 H 105 H 95 Respiratory Rate 20 20 24 H Blood Pressure 153/73 H Pulse Oximetry 96 Oxygen Delivery Oxygen Flow Rate Fraction of Inspired Oxygen 08/13/24 02:16 08/13/24 06:00 08/13/24 06:47 Temperature 98.1 F Pulse Rate 98 94 94 Respiratory Rate 28 H 16 16 Blood Pressure 169/78 H 168/87 H Pulse Oximetry 97 95 95 Oxygen Delivery Nasal Cannula Oxygen Flow Rate 3 Fraction of Inspired Oxygen 08/13/24 07:24 08/13/24 07:24 08/13/24 07:34 Temperature Pulse Rate 92 97 Respiratory Rate 20 20 Blood Pressure Pulse Oximetry 98 Oxygen Delivery Nasal Cannula Oxygen Flow Rate 4 Fraction of Inspired Oxygen 36 08/13/24 13:38 08/13/24
[2024-08-13 16:35] LABS: Glucose Point of Care 361 mg/dl (65-105)
[2024-08-13] MEDS: LOSARTAN POTASSIUM 50 MG TABLET PO (16:51)
[2024-08-13] MEDS: FUROSEMIDE 20 MG TABLET PO (16:51)
[2024-08-13] MEDS: gemfibroziL 600 MG TABLET PO (16:51)
[2024-08-13 23:49] LABS: Glucose Point of Care 332 mg/dl (65-105)
[2024-08-14] VITALS (16 sets, daily range): BP systolic 136–180; BP diastolic 58–87; PULSE 87–101; RESP 17–25; TEMP 36.6–36.8; O2SAT 92–97
[2024-08-14] MEDS: IPRATROPIUM 0.5 MG/ALBUTEROL SULFATE 2.5 MG AMPUL.NEB 3 ML INHALATION ×3 (02:19→20:44)
[2024-08-14] MEDS: ACETAMINOPHEN 325 MG TABLET 650 MG PO (04:38)
--- NOTE | 2024-08-14 06:00 | ECHO_ITS ---
Patient Info Name: Frank Kelley Age: 74 years : 1950 Gender: Male Ht: 68 in Wt: 253 lbs BSA: 2.40 m2 HR: 157 bpm BP: 176 / 87 mmHg Heart Rhythm: Sinus Rhythm Technical Quality: Fair Exam Date: 08/14/2024 12:04 PM Exam Location: Echo Lab Patient Status: Inpatient Admit Date: 08/14/2024 Staff Ordering Physician: Alli Karimi MD Hvac Manager: Jorge A Perez RDCS Attending Provider: Neeta Thompson MD Referring Physician: Trev OSWALD; Exam Type: CA echo doppler color flow Study Info Indications R06.02 - Shortness of breath Complete two-dimensional, color flow and Doppler transthoracic echocardiogram is performed. Summary 1. Complete two-dimensional, color flow and Doppler transthoracic echocardiogram is performed. 2. Normal left ventricular size and systolic function with grade 1 diastolic noncompliance. 3. Mild sclerosis of the left coronary cusp aortic valve, well maintained leaflet separation. 4. Trivial mitral regurgitation. Left Ventricle Left ventricular chamber dimension is normal. Left ventricular systolic function is normal, estimated at 60-65%. The left ventricular diastolic function is grade I diastolic dysfunction. Right Ventricle Right ventricular chamber dimension is normal. Left Atria Left atrial chamber dimension is normal. Right Atria Right atrial chamber dimension is normal. Aortic Valve The aortic valve is trileaflet. There is mild aortic valve sclerosis. Pulmonic Valve The pulmonic valve is normal. Mitral Valve The mitral valve has normal leaflets. Tricuspid Valve The tricuspid valve leaflets are normal. Pericardium/Pleural The pericardium appears normal. Aorta The aortic root size at the sinus of Valsalva is normal. Left Ventricular Outflow Tract Name Value Normal LVOT 2D LVOT Diameter 2.0 cm LVOT Doppler LVOT Peak Gradient 4 mmHg LVOT Mean Gradient 2 mmHg LVOT VTI 19 cm LVOT VTI/AV VTI Ratio 0.5 LVOT Stroke Volume 60 ml LVOT CO 4.6 l/min LVOT CI 1.9 l/min/m2 Pulmonic Valve Name Value Normal PV Doppler PV Peak Gradient 4 mmHg Mitral Valve Name Value Normal MV Doppler MV Decel [place] 566 cm/s2 MV PHT 51 ms MV Area (PHT) 4.3 cm2 4.0-5.0 MV Diastolic Function MV E Peak Velocity 100 cm/s MV A Peak Velo
[2024-08-14] MEDS: HEPARIN SODIUM 5,000 UNITS/ML VIAL 5000 UNITS SUB-Q ×3 (06:04→20:42)
[2024-08-14 06:56] LABS: Basophils Percent Auto 0.1 % (0.2-1.2); Hematocrit 41.3 % (42.0-52.0); Hemoglobin 12.8 g/dL (14.0-18.0); Immature Granulocyte Absolute 0.05 K/mm3 (0.00-0.031); Immature Granulocyte Percent A 0.4 % (0-0.5); Lymphocytes Absolute Auto 0.79 K/mm3 (0.9-3.2); Lymphocytes Percent Auto 6.7 % (18.3-44.2); Mean Corpuscular Hemoglobin 28.3 pg (26-34); Mean Corpuscular Volume 91.2 fl (80-100); Mean Platelet Volume 9.8 fl (7.4-10.4); Monocytes Absolute Auto 0.7 K/mm3 (0.1-0.6); Monocytes Percent Auto 5.8 % (2.6-8.5); Neutrophils Absolute Auto 10.3 K/mm3 (1.3-6.7); Platelet Count Result 288 k/mm3 (150-375); Red Blood Count 4.53 M/mm3 (4.6-6.20); Red Cell Distribution Width 15.1 % (11.5-14.5); White Blood Count 11.8 K/mm3 (4.5-10.0)
[2024-08-14 07:31] LABS: Anion Gap 7 mmol/L (4-12); Blood Urea Nitrogen 23 mg/dL (9-20); Calcium 9.2 mg/dL (8.4-10.2); Carbon Dioxide 34 mmol/L (22-30); Chloride 97 mmol/L (98-107); Estimated CRCL calculation 101 ml/min; Estimated Glomerular Filt Rate > 60; Glucose 212 mg/dL (65-110); Potassium 4.9 mmol/L (3.4-5.0); Sodium 138 mmol/L (137-145)
[2024-08-14 07:44] LABS: Glucose Point of Care 194 mg/dl (65-105)
--- NOTE | 2024-08-14 08:44 | P.PNIM_ITS ---
Progress Note: A&P Assessment and Plan (1) Acute hypoxic respiratory failure: Code(s): J96.01 - Acute respiratory failure with hypoxia Status: Acute Assessment and Plan: 08/14/24: * Respiratory panel negative for influenza a and B, COVID, RSV * Chest x-ray was negative. 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 * Continue Solu-Medrol * Continue DuoNebs * Patient normally wears 3 L nasal cannula at baseline, now requiring 4 L nasal cannula * Wean O2 for sat between 88-92% * Blood culture showing no growth to date on preliminary read (2) Acute exacerbation of chronic obstructive pulmonary disease: Code(s): J44.1 - Chronic obstructive pulmonary disease with (acute) exacerbation Status: Chronic Assessment and Plan: 08/14/24: * History of asbestos exposure, former smoker-2 pack per day times 37 years, quit on , takes marijuana gummies for sleep * Patient is not well controlled at home and we will go ahead and get a pulmonology consult today, usually followed by his primary care physician for his COPD * Continue Solu-Medrol * Continue to wean O2 for sat between 88-92% * Continue DuoNebs (3) Hypertension: Code(s): I10 - Essential (primary) hypertension Status: Chronic Assessment and Plan: 08/14/24: * Blood pressures ranging 153/73 to 176/87 * Increase losartan to 100 mg p.o. b.i.d. for better control (4) Type 2 diabetes mellitus: Qualifiers: Diabetes mellitus mcfp insulin use: without intermediate school teacher use Diabetes mellitus complication status: with circulatory complication Diabetes mellitus complication detail: with peripheral angiopathy with gangrene Qualified Code(s): E11.52 - Type 2 diabetes mellitus with diabetic peripheral angiopathy with gangrene Code(s): E11.9 - Type 2 diabetes mellitus without complications Status: Acute Assessment and Plan: 08/14/24: * Blood sugars ranging 194-298 * Hgb A1C 6.8 on 01/19/24 * Will recheck hemoglobin A1c today * Accu checks AC/HS * high dose SSI ordered * Lantus 17 units ordered for tonight * hypoglycemic protocol in place * Diabetic diet ordered * Hold metformin and glipizide (5) Mixed hyperlipidemia: Code(s): E78.2 - Mixed hyperlipidemia Status: Acute Assessment and Plan: 08/14/24: * Continue aspirin and rosuvastatin (6) Non-healing wound of amputation stump: Code(s): T87.89 - Other complications of amputation stump Status: Acute Assessment and Plan: 08/14/24: * Wound nurse consult Time Spent With Patient Time with patient: 25 - 35 minutes Subjective Date/time seen: 08/14/24 08:44 Interval history: This is a 74-year-old male a significant past medical history of COPD requiring home O2 of 2 L nasal cannula, type 2 diabetes mellitus, status post left BKA, chronic venous stasis of the left lower extremity who presented to the hospital on 08/13/2024 with complaints of shortness of breath. Workup in the hospital included a chest x-ray which was negative. 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 Initial labs showed a white blood cell count of 12.2, hemoglo
--- NOTE | 2024-08-14 08:44 | PM.IMPN ---
Progress Note: A&P Assessment and Plan (1) Acute hypoxic respiratory failure: Code(s): J96.01 - Acute respiratory failure with hypoxia Status: Acute Assessment and Plan: 08/14/24: Respiratory panel negative for influenza a and B, COVID, RSV Chest x-ray was negative. 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 Continue Solu-Medrol Continue DuoNebs Patient normally wears 3 L nasal cannula at baseline, now requiring 4 L nasal cannula Wean O2 for sat between 88-92% Blood culture showing no growth to date on preliminary read (2) Acute exacerbation of chronic obstructive pulmonary disease: Code(s): J44.1 - Chronic obstructive pulmonary disease with (acute) exacerbation Status: Chronic Assessment and Plan: 08/14/24: History of asbestos exposure, former smoker-2 pack per day times 37 years, quit on , takes marijuana gummies for sleep Patient is not well controlled at home and we will go ahead and get a pulmonology consult today, usually followed by his primary care physician for his COPD Continue Solu-Medrol Continue to wean O2 for sat between 88-92% Continue DuoNebs (3) Hypertension: Code(s): I10 - Essential (primary) hypertension Status: Chronic Assessment and Plan: 08/14/24: Blood pressures ranging 153/73 to 176/87 Increase losartan to 100 mg p.o. b.i.d. for better control (4) Type 2 diabetes mellitus: Qualifiers: Diabetes mellitus intermodal truck driver insulin use: without intermodal truck driver use Diabetes mellitus complication status: with circulatory complication Diabetes mellitus complication detail: with peripheral angiopathy with gangrene Qualified Code(s): E11.52 - Type 2 diabetes mellitus with diabetic peripheral angiopathy with gangrene Code(s): E11.9 - Type 2 diabetes mellitus without complications Status: Acute Assessment and Plan: 08/14/24: Blood sugars ranging 194-298 Hgb A1C 6.8 on 01/19/24 Will recheck hemoglobin A1c today Accu checks AC/HS high dose SSI ordered Lantus 17 units ordered for tonight hypoglycemic protocol in place Diabetic diet ordered Hold metformin and glipizide (5) Mixed hyperlipidemia: Code(s): E78.2 - Mixed hyperlipidemia Status: Acute Assessment and Plan: 08/14/24: Continue aspirin and rosuvastatin (6) Non-healing wound of amputation stump: Code(s): T87.89 - Other complications of amputation stump Status: Acute Assessment and Plan: 08/14/24: Wound nurse consult Time Spent With Patient Time with patient: 25 - 35 minutes Subjective Date/time seen: 08/14/24 08:44 Interval history: This is a 74-year-old male a significant past medical history of COPD requiring home O2 of 2 L nasal cannula, type 2 diabetes mellitus, status post left BKA, chronic venous stasis of the left lower extremity who presented to the hospital on 08/13/2024 with complaints of shortness of breath. Workup in the hospital included a chest x-ray which was negative. 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 Initial labs showed a white blood cell count of 12.2, hemoglobin 13.1, sodium 134, chloride 93, troponin negative x2, procalcitonin 0.2. UA was obtained and was negative. Respiratory panel was obtained and was negative for influenza a and B, RSV, COVID. Blood cultures were obtained and are pending. Patient was given a loading dose Solu-Medrol and DuoNeb while in the ED. Patient denies any fever, chills, nausea, vomiting, diarrhea, abdominal pain,
[2024-08-14] MEDS: methylPREDNISolone SOD SUCC 125 MG VIAL 60 MG IV PUSH ×2 (09:04)
[2024-08-14] MEDS: ASPIRIN 81 MG ENTERIC TABLET PO (09:05)
[2024-08-14] MEDS: FUROSEMIDE 20 MG TABLET PO ×2 (09:05→16:28)
[2024-08-14] MEDS: ROSUVASTATIN 20 MG TABLET PO (09:06)
[2024-08-14] MEDS: GLIMEPIRIDE 2 MG TABLET PO (09:06)
[2024-08-14] MEDS: LOSARTAN POTASSIUM 50 MG TABLET PO ×2 (09:06→12:28)
[2024-08-14] MEDS: gemfibroziL 600 MG TABLET PO ×2 (09:06→16:28)
[2024-08-14 11:17] LABS: Glucose Point of Care 298 mg/dl (65-105)
[2024-08-14] MEDS: INSULIN ASPART (*BKC) 100 UNITS/ML SUB-Q ×2 (11:36→20:43)
[2024-08-14] MEDS: guaiFENesin 12 HR 600 MG TABCR PO ×2 (12:02→20:42)
[2024-08-14] MEDS: LORATADINE 10 MG TABLET PO (12:02)
[2024-08-14] MEDS: GENTAMICIN SULFATE 0.1% OINT 15 GM TUBE 1 APPLIC TOPICAL (13:46)
--- NOTE | 2024-08-14 14:13 | PM.CNPUL ---
Assessment and Plan Assessment and plan (1) Acute exacerbation of chronic obstructive pulmonary disease: Code(s): J44.1 - Chronic obstructive pulmonary disease with (acute) exacerbation Status: Chronic Assessment and Plan: Patient with 57 pack year tobacco use, mild apical predominant centrilobular emphysema on his CT scan. He told me at PFTs in the and was diagnosed with COPD. I do not have those reports. He has been maintained on DuoNebs 3 times a day at home because long-acting inhalers are too expensive. Eosinophils on presentation were 73 per micro L. Patient presents with 3 weeks worsening shortness of breath, cough, phlegm production and hypoxemia consistent with a COPD exacerbation.He was treated with Solu-Medrol, bronchodilators and improved. COVID, influenza, RSV RT PCR studies negative. Blood cultures negative. Procalcitonin 0.2. 08/14/2024: Today the patient tells me that he is back to his normal and ready to go home. He says he has his normal cough with no phlegm and no hemoptysis. He had some swelling but this is improved. His white blood cell count is 11.8, his creatinine is 0.7. Currently is on 3 L nasal cannula with saturations 96%. Plan: I will check an ABG to exclude hypercarbic respiratory failure. I will check an alpha 1 anti trypsin genotype in the morning. I will change his Solu-Medrol 40 b.i.d. to prednisone 40 starting tomorrow on 08/15. I will increase his DuoNebs to q.i.d. while awake. He does complain of some sinus congestion and I will continue Claritin 10 mg p.o. q.day and discontinue montelukast to see if he can be controlled with just Claritin. Agree with guaifenesin 600 mg p.o. b.i.d.. No need for antibiotics from a pulmonary perspective. Patient has prior history of asbestos exposure and has calcified pleural plaques bilaterally with no evidence of interstitial lung disease. If patient remains clinically stable overnight anticipate discharge on 08/15/2024. Discussed with Jacklyn Allred, will follow with you. (2) Obstructive sleep apnea: Code(s): G47.33 - Obstructive sleep apnea (adult) (pediatric) Status: Acute Assessment and Plan: Regarding his obstructive sleep apnea. He was diagnosed in 2004 with a sleep study in [place] and was prescribed a machine. He uses a full face mass with 3 L bleed in every night and he says that he has a good clinical benefit. His DME company is [employer]. The patient tells me he did well on the hospital auto PAP 5-15 with 3 L bleed in. Plan: I will use the hospital auto Pap 5-15 with 3 L bleed in and perform an overnight oximetry to assess oxygenation. History of Present Illness History of Present Illness Consult date: 08/14/24 Chief complaint: COPD Exacerbation Narrative: 08/14/2024: This is a new pulmonary consult for COPD exacerbation. 74-year-old with a history of diabetes, hypertension, venous stasis, left BKA, GERD, obstructive sleep apnea, COPD with hypoxemic respiratory failure. Regarding patient's COPD was diagnosed in the s with PFTs. He was started on inhaled medicines about 10 years later. He has no recent exacerbations. Two months ago he says he was at his baseline and he can walk 1 block with his prosthesis. He stops at 1 block because he is tired not because of breathing issues. One year ago he could walk 2 blocks. Five years ago he could walk 3-4 blocks. Over the last 2 months he can walk room to room because of leg pain not because of breathing. He is not short of breath dressing or undressing. Currently takes DuoNebs 3 times a day. He was tried on inhalers but he said that these were too expensive for him to afford. The patient tells me he has been on 3 L oxygen for 15 years. Patient smoked tobacco from age [age] at 1 and half packs per day for total of 57 pack years. Patient was exposed to secondhand smoke from his father and from his until 12
[2024-08-14 16:28] LABS: Alveolar/Arterial O2 Gradient 62.8 mmHg; Base Excess ABG 7.7 mEq/l (+/-2.0); Fractional Inspired Oxygen 32 %; HCO3 ABG 33.1 mEq/l (22.0-26.0); Oxygen Content ABG 17.6 %vol (16.0-22.0); Oxyhemoglobin 96.4 % THb (90.0-100.0); PO2 ABG 106.9 mmHg (80.0-100.0); PO2 FiO2 Ratio Arterial Blood 3.34 %; Total Hemoglobin 12.9 g/dL (12.0-18.0); pH ABG 7.439 (7.350-7.450)
[2024-08-14 16:38] LABS: Device NASAL CANNULA; Modified Allen's Test Pass; Site Drawn RIGHT RADIAL
[2024-08-14 16:49] LABS: Glucose Point of Care 174 mg/dl (65-105)
[2024-08-14 19:30] LABS: Glucose Point of Care 240 mg/dl (65-105)
[2024-08-14] MEDS: LOSARTAN POTASSIUM 50 MG TABLET 100 MG PO (20:42)
[2024-08-14] MEDS: PSYLLIUM SUGAR FREE POWDER PACKET 1 PACKET PO (20:42)
[2024-08-14] MEDS: MIRTAZAPINE 7.5 MG TABLET PO (20:42)
[2024-08-14] MEDS: INSULIN GLARGINE (*BKC) 100 UNITS/ML 17 UNITS SUB-Q (20:42)
[2024-08-15] VITALS (13 sets, daily range): BP systolic 160–164; BP diastolic 73–83; PULSE 88–106; RESP 12–20; TEMP 36.3–36.4; O2SAT 82–98
[2024-08-15] MEDS: HEPARIN SODIUM 5,000 UNITS/ML VIAL 5000 UNITS SUB-Q ×2 (05:34→15:09)
[2024-08-15] MEDS: IPRATROPIUM 0.5 MG/ALBUTEROL SULFATE 2.5 MG AMPUL.NEB 3 ML INHALATION ×2 (07:00→12:50)
[2024-08-15 07:29] LABS: Glucose Point of Care 91 mg/dl (65-105)
[2024-08-15] MEDS: guaiFENesin 12 HR 600 MG TABCR PO (08:27)
[2024-08-15] MEDS: FUROSEMIDE 20 MG TABLET PO (08:27)
[2024-08-15] MEDS: LOSARTAN POTASSIUM 50 MG TABLET 100 MG PO (08:27)
[2024-08-15] MEDS: predniSONE 20 MG TABLET 40 MG PO (08:28)
[2024-08-15] MEDS: gemfibroziL 600 MG TABLET PO (08:28)
[2024-08-15] MEDS: LORATADINE 10 MG TABLET PO (08:28)
[2024-08-15] MEDS: ASPIRIN 81 MG ENTERIC TABLET PO (08:28)
[2024-08-15] MEDS: ROSUVASTATIN 20 MG TABLET PO (08:28)
--- NOTE | 2024-08-15 08:31 | PM.PNPUL ---
Progress Note: A&P Assessment and Plan (1) Acute exacerbation of chronic obstructive pulmonary disease: Code(s): J44.1 - Chronic obstructive pulmonary disease with (acute) exacerbation Status: Chronic Assessment and Plan: Patient with 57 pack year tobacco use, mild apical predominant centrilobular emphysema on his CT scan. He told me at PFTs in the and was diagnosed with COPD. I do not have those reports. He has been maintained on DuoNebs 3 times a day at home because long-acting inhalers are too expensive. Eosinophils on presentation were 73 per micro L. Patient presents with 3 weeks worsening shortness of breath, cough, phlegm production and hypoxemia consistent with a COPD exacerbation.He was treated with Solu-Medrol, bronchodilators and improved. COVID, influenza, RSV RT PCR studies negative. Blood cultures negative. Procalcitonin 0.2. 08/14/2024: Today the patient tells me that he is back to his normal and ready to go home. He says he has his normal cough with no phlegm and no hemoptysis. He had some swelling but this is improved. His white blood cell count is 11.8, his creatinine is 0.7. Currently is on 3 L nasal cannula with saturations 96%. Plan: I will check an ABG to exclude hypercarbic respiratory failure. I will check an alpha 1 anti trypsin genotype in the morning. I will change his Solu-Medrol 40 b.i.d. to prednisone 40 starting tomorrow on 08/15. I will increase his DuoNebs to q.i.d. while awake. He does complain of some sinus congestion and I will continue Claritin 10 mg p.o. q.day and discontinue montelukast to see if he can be controlled with just Claritin. Agree with guaifenesin 600 mg p.o. b.i.d.. No need for antibiotics from a pulmonary perspective. Patient has prior history of asbestos exposure and has calcified pleural plaques bilaterally with no evidence of interstitial lung disease. If patient remains clinically stable overnight anticipate discharge on 08/15/2024. Later in the day the patient had a blood gas on 3 L nasal cannula with pH of 7.44/50/107. 08/15/24: Patient tells me he is breathing normally. He denies fever, chills, rigors or hemoptysis. He has a small amount of phlegm production. No wheezing on exam. He is on 3 L nasal cannula saturations 97%. Plan: From a pulmonary perspective patient is ready to be discharged on these pulmonary medications: Prednisone 40 mg p.o. q.day x1 day, last dose 08/16/2024. DuoNebs q.i.d. Rescue albuterol 2 puffs q.4 hours p.r.n. shortness of breath or wheezing Oxygen at rest and with activity per formal home O2 assessment which I have ordered. When he needs naps or sleeps BiPAP with no backup rate, IPAP 25, EPAP 20 and 4 L bleed in. Follow-up in the Pulmonary Clinic in 4 weeks, I gave him our business card and informed our senior power scheduler. Discussed with Jacklyn Allred, will sign off, call with questions. (2) Obstructive sleep apnea: Code(s): G47.33 - Obstructive sleep apnea (adult) (pediatric) Status: Acute Assessment and Plan: Regarding his obstructive sleep apnea. He was diagnosed in 2004 with a sleep study in [place] and was prescribed a machine. He uses a full face mass with 3 L bleed in every night and he says that he has a good clinical benefit. His DME company is [employer]. The patient tells me he did well on the hospital auto PAP 5-15 with 3 L bleed in. Plan: I will use the hospital auto Pap 5-15 with 3 L bleed in and perform an overnight oximetry to assess oxygenation. 08/15/24: Patient wore the hospital auto PAP 5-15 with 3 L bleed in with an overnight oximetry with recording duration of 5 hours and 20 minutes. Average saturation 94%. Low saturation 80%. Time with saturation less than or equal to 88% was 18 minutes. Oxygen desaturation index 5.9. I obtained a recent download from [employer] from 07/16/2024 through 08/14/2024. Patient is on BiPAP no
--- NOTE | 2024-08-15 09:03 | PM.DS ---
DS: Admitting Diagnosis Discharge Date 08/15/24 Admitting Diagnosis Acute exacerbation of COPD Acute hypoxic respiratory failure Hypertension DS: Discharge Diagnosis Discharge Diagnosis (1) Acute hypoxic respiratory failure: Code(s): J96.01 - Acute respiratory failure with hypoxia Status: Acute (2) Acute exacerbation of chronic obstructive pulmonary disease: Code(s): J44.1 - Chronic obstructive pulmonary disease with (acute) exacerbation Status: Chronic (3) Hypertension: Code(s): I10 - Essential (primary) hypertension Status: Chronic (4) Type 2 diabetes mellitus: Qualifiers: Diabetes mellitus complication detail: with peripheral angiopathy with gangrene Diabetes mellitus complication status: with circulatory complication Diabetes mellitus residential insulin use: without exterminator helper use Qualified Code(s): E11.52 - Type 2 diabetes mellitus with diabetic peripheral angiopathy with gangrene Code(s): E11.9 - Type 2 diabetes mellitus without complications Status: Acute (5) Mixed hyperlipidemia: Code(s): E78.2 - Mixed hyperlipidemia Status: Acute (6) Non-healing wound of amputation stump: Code(s): T87.89 - Other complications of amputation stump Status: Acute DS: Summary Hospital Course Reason for hospitalization: Acute exacerbation of COPD Acute hypoxic respiratory failure Hypertension Hospital Course: This is a 74-year-old male a significant past medical history of COPD requiring home O2 of 2 L nasal cannula, type 2 diabetes mellitus, status post left BKA, chronic venous stasis of the left lower extremity who presented to the hospital on 08/13/2024 with complaints of shortness of breath. Workup in the hospital included a chest x-ray which was negative. 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 Initial labs showed a white blood cell count of 12.2, hemoglobin 13.1, sodium 134, chloride 93, troponin negative x2, procalcitonin 0.2. UA was obtained and was negative. Respiratory panel was obtained and was negative for influenza a and B, RSV, COVID. Blood cultures were obtained and are pending. Patient was given a loading dose Solu-Medrol and DuoNeb while in the ED. Pulmonology was consulted and recommended continuing Duonebs QID at home, ordering a home albuterol rescue inhaler, finishing prednisone, and continue to wear O2 during the day with bipap at night and napping with 4L bleed in. He will need to follow up with pulmonology in 4 weeks. He was given a course of Azithromycin and a requisite for pulmonary rehab. He is stable for discharge at this time. Final diagnosis: Acute hypoxic respiratory failure, acute exacerbation of COPD Status at Discharge Cognitive/behavioral status at discharge: Alert oriented x4 Functional status at discharge: independent ambulation Overall status at discharge: patient is progressing back to baseline Time Spent with Patient Time attestation: Total time spent providing and/or coordinating discharge services: Time spent: Greater than 30 minutes Exam Narrative: General: In no acute distress, well nourished Cardiac: Normal S1 and S2. No murmur, gallops or friction rubs, peripheral pulses intact. Respiratory: Lungs clear, diminished in bases, no adventitious lung sounds, currently on 3L NC, SOB with exertion Gastrointestinal: soft, non-distended, non-tender, normoactive bowel sounds. : voiding without difficulty. Extremities: moves all extremities well, left BKA Skin: Wound noted to left BKA stump open to air and scabbed. Neuro: Alert and oriented x4 DS: Data Data Completed and Pending Completed studies during hospitalization: Venous study Chest CTA Chest x-ray Pending studies
[2024-08-15 09:05] LABS: Basophils Percent Auto 0.3 % (0.2-1.2); Eosinophils Absolute Auto 0.2 K/mm3 (0-0.3); Eosinophils Percent Auto 1.8 % (0-4.4); Hematocrit 44.7 % (42.0-52.0); Immature Granulocyte Absolute 0.04 K/mm3 (0.00-0.031); Immature Granulocyte Percent A 0.4 % (0-0.5); Lymphocytes Absolute Auto 1.97 K/mm3 (0.9-3.2); Lymphocytes Percent Auto 18.8 % (18.3-44.2); Mean Corpuscular HGB Conc 31.3 g/dl (32-36); Mean Corpuscular Hemoglobin 29.2 pg (26-34); Mean Corpuscular Volume 93.1 fl (80-100); Mean Platelet Volume 10.8 fl (7.4-10.4); Monocytes Absolute Auto 1.2 K/mm3 (0.1-0.6); Monocytes Percent Auto 11.2 % (2.6-8.5); Neutrophils Absolute Auto 7.1 K/mm3 (1.3-6.7); Neutrophils Percent Auto 67.5 % (45.5-73.1); Platelet Count Result 317 k/mm3 (150-375); Red Cell Distribution Width 15.3 % (11.5-14.5); White Blood Count 10.5 K/mm3 (4.5-10.0)
[2024-08-15 11:24] LABS: Glucose Point of Care 196 mg/dl (65-105)
[2024-08-15] MEDS: GENTAMICIN SULFATE 0.1% OINT 15 GM TUBE 1 APPLIC TOPICAL (14:29)
--- NOTE | 2024-08-15 14:31 | HOMEO2EVAL ---
Evaluation was performed at [facility] Home Oxygen Evaluation RC: Home Oxygen (O2) Evaluation Start: 08/15/24 08:34 Freq: ONCE Status: Active Protocol: RPE Activity Type Activity Date Activity User E-sign Co-sign Detail Recorded Client Recorded Date Recorded By Document 08/15/24 09:30 JADYN [email or web address] 08/15/24 14:26 JADYN Document 08/15/24 09:31 JADYN [email or web address] 08/15/24 14:26 JADYN Document 08/15/24 09:32 JADYN [email or web address] 08/15/24 14:26 JADYN Document 08/15/24 09:35 JADYN [email or web address] 08/15/24 14:26 JADYN Document 08/15/24 09:45 JADYN [email or web address] 08/15/24 14:26 JADYN 08/15/24 08/15/24 08/15/24 09:30 09:31 09:32 Home O2 Evaluation [Oxygen] -Test Phase Resting Resting Resting -Oxygen Delivery Room Air Nasal Cannula Nasal Cannula -Oxygen Flow Rate (L/min) 2 3 [Pulse Oximetry] -Pulse Oximetry (90-100 %) 82 L 87 L 94 [Pulse Rate] -Pulse Rate (60-100 beats/min) 90 [Comments] -Home Oxygen Evaluation Comments [Charges] -Evaluation Charges O2 Evaluation by Pulmonary 08/15/24 08/15/24 09:35 09:45 Home O2 Evaluation [Oxygen] -Test Phase Exercise Resting -Oxygen Delivery Nasal Cannula Nasal Cannula -Oxygen Flow Rate (L/min) 3 3 [Pulse Oximetry] -Pulse Oximetry (90-100 %) 90 94 [Pulse Rate] -Pulse Rate (60-100 beats/min) 106 H 93 [Comments] -Home Oxygen Evaluation Comments PT REQUIRES 3 L REST AND 3 L ACTIVITY AND 4 L BLEED IN WITH HOME BIPAP UNIT. [Charges] -Evaluation Charges
--- NOTE | 2024-08-15 14:31 | PCRCNOTE ---
HOME O2 EVAL DONE, 3L REST AND ACT AND 4 L BLEED-IN WITH BIPAP HOME UNIT. NO CHANGE EXCEPT FOR INCREASE IN BLEED-IN FROM 3L TO 4L. PT HAS [facility]. FAXED APNEA [facility]KN WITH [employer] ON 3L AND ORDER TO [facility] AT [facility].
== END 2024-08-15 15:30 | disposition home or self-care (01) | DRG 190 ==
LOC: ANHED 08-13 04:41 → ANH3MEDSUR 08-13 05:08
PROVIDERS: Internal Medicine Pulmonary Disease; Nurse Practitioner; Admitting Provider General Practice; Emergency Provider Emergency Medicine; PCP Family Medicine; Visit Provider Nurse Practitioner Acute Care
DX: J44.1 Chronic obstructive pulmonary disease with (acute) exacerbation (principal); J96.01 Acute respiratory failure with hypoxia; I73.1 Thromboangiitis obliterans [Buerger's disease]; I10 Essential (primary) hypertension; I87.8 Other specified disorders of veins; E11.42 Type 2 diabetes mellitus with diabetic polyneuropathy; E78.2 Mixed hyperlipidemia; E66.9 Obesity, unspecified; K21.9 Gastro-esophageal reflux disease without esophagitis; L40.9 Psoriasis, unspecified; G47.33 Obstructive sleep apnea (adult) (pediatric); Z20.822 Contact with and (suspected) exposure to COVID-19; Z79.82 Long term (current) use of aspirin; Z89.512 Acquired absence of left leg below knee; Z87.891 Personal history of nicotine dependence
CPT/HCPCS: 36415; 36600; 71045; 71275; 80048; 80053; 81003; 82104; 82805; 82810; 82948; 83605; 83735; 83880; 84145; 84484; 85025; 85610; 85730; 87040; 87637; 93005; 93306; 93971; 94618; 94640; 96361; 96372; 96374; 96376; 99285; A9270; G0378; J1644; J1815; J2919; J7030; J7512; Q9967

== ENCOUNTER 2025-02-23 09:03 | Outpatient (CLI) | payer MEDICARE, SELFPAY ==
--- OUTSIDE RECORDS SUMMARY | 2025-02-23 09:27 | XMS_ITS | CONTINUITY OF CARE DOCUMENT ---
Author Name jody vera Address Unknown Organization [facility] Address [address] [place] [address] Phone [phone] Care Team Providers Care Windows Administrator Name Role Phone Sarahy GHOSH, Juan Carlos Unavailable MIKE GHOSH, RASHMIN Unavailable MIKE GHOSH, RASHMIN Unavailable INSURANCE PROVIDERS Payer name Policy type / Coverage type Jewell red green party ID [facility] [id number] [place] [employer] Medicare [id number]
[2025-02-23 12:56] LABS: Basophils Percent Auto 0.4 % (0.2-1.2); Eosinophils Absolute Auto 0.2 K/mm3 (0-0.3); Eosinophils Percent Auto 2.6 % (0-4.4); Hematocrit 41.8 % (42.0-52.0); Hemoglobin 12.8 g/dL (14.0-18.0); Immature Granulocyte Absolute 0.03 K/mm3 (0.00-0.031); Immature Granulocyte Percent A 0.4 % (0-0.5); Lymphocytes Absolute Auto 1.18 K/mm3 (0.9-3.2); Lymphocytes Percent Auto 13.9 % (18.3-44.2); Mean Corpuscular HGB Conc 30.6 g/dl (32-36); Mean Corpuscular Hemoglobin 27.5 pg (26-34); Mean Corpuscular Volume 89.7 fl (80-100); Mean Platelet Volume 10.2 fl (7.4-10.4); Monocytes Absolute Auto 0.8 K/mm3 (0.1-0.6); Monocytes Percent Auto 8.8 % (2.6-8.5); Neutrophils Absolute Auto 6.3 K/mm3 (1.3-6.7); Neutrophils Percent Auto 73.9 % (45.5-73.1); Platelet Count Result 306 k/mm3 (150-375); Red Blood Count 4.66 M/mm3 (4.6-6.20); Red Cell Distribution Width 15.7 % (11.5-14.5); White Blood Count 8.5 K/mm3 (4.5-10.0)
[2025-02-23 13:03] LABS: Cholesterol 160 mg/dL (0-200); HDL Direct 49 mg/dL; Triglycerides 312 mg/dL (<150)
[2025-02-23 13:21] LABS: LDL Cholesterol Direct < 30 mg/dL
[2025-02-23 13:27] LABS: Vitamin D 25 Hydroxy 54.6 ng/mL
[2025-02-23 14:30] LABS: Hemoglobin A1C 6.7 % (<5.7)
== END 2025-02-23 09:04 | disposition home or self-care (01) ==
LOC: ANHGOSHLAB 09:04
PROVIDERS: PCP Internal Medicine; Visit Provider Clinical Nurse Specialist
DX: E11.52 Type 2 diabetes mellitus with diabetic peripheral angiopathy with gangrene (principal); J41.1 Mucopurulent chronic bronchitis; L40.9 Psoriasis, unspecified; E78.2 Mixed hyperlipidemia; Z12.5 Encounter for screening for malignant neoplasm of prostate
CPT/HCPCS: 36415; 80061; 82306; 82607; 83036; 84153; 84443; 85025; G0103

== ENCOUNTER 2025-03-02 09:50 | Outpatient (CLI) | payer MEDICARE, SELFPAY ==
--- OUTSIDE RECORDS SUMMARY | 2025-03-02 10:08 | XMS_ITS | CONTINUITY OF CARE DOCUMENT ---
Author Name jody vera Address Unknown Organization [facility] Address [address] [place] [address] Phone [phone] Care Team Providers Care Systems Mechanic Name Role Phone Sarahy GHOSH, Juan Carlos Unavailable [phone] MIKE GHOSH, RASHMIN Unavailable MIKE GHOSH, RASHMIN Unavailable INSURANCE PROVIDERS Payer name Policy type / Coverage type Voss red libertarian ID [facility] [id number] [place] Medicare [id number]
--- NOTE | 2025-03-02 17:35 | WPDPFTINT ---
PFT Procedure Performed PFT Procedure Performed Spirometry with Pre/Post Bronchodilator Spirometry w/o Bronchodil PFT Interpretation This is a pulmonary function test with pre and post-bronchodilator spirometry. The test was performed and results interpreted in accordance with the 2019 and 2005 ATS/ERS Task Force guidelines respectively using the Global Lung Function Initiative-2012 reference equations. Patient demonstrated good effort and cooperation. Reproducibility criteria were met. The quality of the pre bronchodilator spirometry maneuver was Grade A and post bronchodilator spirometry maneuver was Grade A. patient is in wheelchair in states he is unable to transfer into the body box. Pre and post spirometry done outside the box. Patient was on 4 L O2 during the testing. Findings: Spirometry: There is decreased maximal expiratory airflow at all lung volumes with concave expiratory flow tracing. The contour the inspiratory flow tracing is normal. The pre bronchodilator FVC is 1.72 L, 44% predicted. The pre bronchodilator FEV1 is 0.72 L, 25% predicted. The pre bronchodilator FEV1: FVC ratio is 42%. The post bronchodilator FVC is 1.63 L, representing a 5% decrease. The post bronchodilator FEV1 is 0.73 L, representing a 1% increase. The post bronchodilator FEV1: FVC ratio is 45%. Impression: There is a very severe obstructive abnormality. There is no significant improvement after inhaling a single dose of albuterol. There are no prior studies for comparison
== END 2025-03-02 09:51 | disposition home or self-care (01) ==
LOC: ANHPFT 09:51
PROVIDERS: PCP Internal Medicine; Visit Provider Internal Medicine Pulmonary Disease
DX: R94.2 Abnormal results of pulmonary function studies (principal); J42 Unspecified chronic bronchitis
CPT/HCPCS: 94060

== ENCOUNTER 2025-03-08 18:35 | Inpatient (IN) | payer MEDICARE, SELFPAY ==
--- NOTE | ~2025-03-08 | US_ITS ---
RIGHT LOWER EXTREMITY VENOUS ULTRASOUND Ordering provider: Kwasi Cavanaugh MD History: . redness and tenderness of right upper thigh . Comparison: None. FINDINGS: --COMMON FEMORAL: Patent and free of thrombus. Normal compressibility, phasic flow and augmentation. --PROXIMAL SUPERFICIAL FEMORAL: Patent and free of thrombus. Normal compressibility, phasic flow and augmentation. --DISTAL SUPERFICIAL FEMORAL: Patent and free of thrombus. Normal compressibility, phasic flow and au gmentation. --POPLITEAL: Patent and free of thrombus. Normal compressibility, phasic flow and augmentation. --POSTERIOR TIBIAL: Patent and free of thrombus. Normal compressibility, phasic flow and augmentation . IMPRESSION: Negative right lower extremity venous US. No deep vein thrombosis. Reviewed, dictated and finalized at location A.
--- NOTE | ~2025-03-08 | XR_ITS ---
XR chest 1V portable Ordering provider: Sho Roberson MD History: 75 years Male with . SOB . Comparison: August 12, 2024 FINDINGS: MEDIASTINUM: The cardiac silhouette is slightly enlarged. Congestive puma. LUNGS: No effusions or pneumothorax. Minimal opacification in the right lung base. Slightly interstit ial thickening is seen bilaterally. OTHER: No free air under the diaphragm. IMPRESSION: Possible right basilar atelectasis versus pneumonia. Cardiomegaly with congestive puma. Cardiac decompensation and pulmonary edema is not excluded. Clinic al correlation advised. Reviewed, dictated and finalized at location A. IMPRESSION: Possible right basilar atelectasis versus pneumonia. Cardiomegaly with congestive puma. Cardiac decompensation and pulmonary edema i s not excluded. Clinical correlation advised.
--- NOTE | ~2025-03-08 | CT_ITS ---
CTA chest PE abdomen pel Ordering provider: Alli Karimi MD History: . Right lower quadrant abdominal pain, fever . Comparison: August 12, 2024 Technique: CT angiogram chest was performed following timed intravenous injection of contrast. Thin s lice axial images and reformatted coronal images were obtained. Three dimensional reformatted images of the chest were also obtained using a [employer] workstation. Also, CT of the abdomen and pelvis was pe rformed with IV contrast. . Automated exposure control and iterative reconstruction technique were e mployed. The dose-length product was 2328.64 mGy-cm. 100 mL Omnipaque 350 was given IV. FINDINGS: CHEST: --PULMONARY ARTERIES: No pulmonary embolus. --VISUALIZED THORACIC INLET: Normal. --MEDIASTINUM: Aorta/coronary arteries: Mild atheromatous disease. Heart/other: The heart is not enlarged. Lymph nodes: No mediastinal or hilar adenopathy. --LUNGS: No pulmonary masses. No infiltrates or effusions. No pneumothorax. Subsegmental atelectatic changes i n the middle lobe with focal area of slightly larger. Nodule measuring 1.2 cm is excluded. 3 months f ollow-up CT is advised. Pleural calcification is seen. --MUSCULOSKELETAL: Bones: Age appropriate degenerative changes of the spine. Superficial soft tissues: Soft tissue density seen in the anterior chest wall unchanged from previous examination. The superficial soft tissues are normal. ABDOMEN/PELVIS: --MUSCULOSKELETAL: Superficial soft tissues: The superficial soft tissues are normal. Bones: Age appropriate degenerative changes of the spine. --UPPER ABDOMINAL ORGANS: Liver: Normal. Gallbladder: Normal. Spleen: Normal. Calcified granulomas. Stomach/duodenum: Normal. Pancreas: Normal. Adrenals: Normal. Kidneys: Small cyst in the left kidney lower pole. Calcifications in the kidneys are most likely vasc ular. --PELVIC ORGANS: The bladder is normal. No bladder stones. --BOWEL AND MESENTERY: Colon: No evidence of diverticulitis. No evidence of appendicitis.. Small Bowel: Normal. No obstruction. Peritoneum/mesentery: No free air or free fluid. No mesenteric lymphadenopathy. --RETROPERITONEUM: Mild atheromatous disease of the abdominal aorta. Abdominal aortic aneurysm is no ro measuring 4.9 x 4.4 cm. No evidence of leak is seen. 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 Mild dilatation of the right iliac artery is seen. No retroperitoneal lymph adenopathy. IMPRESSION: CHEST: 1. No pulmonary embolism. 2. No acute cardiopulmonary pathology. 3. Possible nodule in the right middle lobe. 3 months follow-up CT is advised. ABDOMEN/PELVIS: 1. 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 2. No evidence of appendicitis, diverticulitis or intestinal obstruction. Reviewed, dictated and finalized at location A.
[2025-03-08 18:39] VITALS: BP 109/62; PULSE 126; RESP 26; TEMP 39.2; O2SAT 93
--- NOTE | 2025-03-08 18:50 | ECG_ITS ---
Test Date: 2025-03-08 18:45:38 Measurements Intervals [place] Rate: 126 P: -67 WI: 147 QRS: -73 QRSD: 105 T: 63 QT: 329 QTc: 477 Interpretive Statements SINUS OR ECTOPIC ATRIAL TACHYCARDIA LEFT AXIS DEVIATION LOW QRS VOLTAGE IN PRECORDIAL LEADS INCOMPLETE RIGHT BUNDLE BRANCH BLOCK INFERIOR INFARCT, AGE INDETERMINATE ANTERIOR INFARCT, AGE INDETERMINATE BASELINE ARTIFACT- I, II, III, AVR, AVL, AVF, V1-V6 ABNORMAL ECG Compared to ECG 08/12/2024 20:44:28 HEART RATE HAS INCREASED Electronically Signed On 03-08-2025 20:30:27 CDT by Roscoe Zuniga D.O.
[2025-03-08 18:54] VITALS: O2SAT 94
[2025-03-08] MEDS: ACETAMINOPHEN 500 MG TABLET 1000 MG PO (18:57)
--- NOTE | 2025-03-08 19:22 | PC.NURSE ---
Assumed care of patient after receiving report from ROSY Anna @ [phone]
--- OUTSIDE RECORDS SUMMARY | 2025-03-08 19:34 | XMS_ITS | CONTINUITY OF CARE DOCUMENT ---
Author Name jody vera Address Unknown Organization [facility] Address [address] [place] [address] Phone [phone] Care Team Providers Care Thinner Sprayer Name Role Phone Sarahy GHOSH, Juan Carlos Unavailable [phone] MIKE GHOSH, RASHMIN Unavailable [phone] MIKE GHOSH, RASHMIN Unavailable INSURANCE PROVIDERS Payer name Policy type / Coverage type Alexis red republican ID [facility] [id number] [place] MEDIC[place] Medicare [id number]
--- NOTE | 2025-03-08 19:44 | ED_ITS ---
HPI - General Adult General Chief complaint: Dizziness Stated complaint: weakness, high HR, dizzy Time Seen by Provider: 03/08/25 19:17 History of Present Illness HPI narrative: The patient is a 32-year-old gentleman presents emergency department with chief complaint of generalized weakness dizziness and shortness of breath. The patient reports that he wears 2 L of oxygen at baseline reports that he was trying to have a bowel movement today and feels as though he is constipated. Patient states he is having generalized weakness reports that he has a fever Related Data Home Medications ?Medication ?Instructions ?Recorded ?Confirmed ?Last Taken ?Type aspirin 81 mg capsule 81 mg PO DAILY 03/12/23 02/23/25 Unknown History Allergies Allergy/AdvReac Type Severity Reaction Status Date / Time No Known Allergies Allergy Verified 03/08/25 18:56 Review of Systems 2 Review of Systems: A 10 system review of systems was completed on the patient and is negative except for what is stated in the HPI. Nursing and ancillary documentation was reviewed. [facility] Past Medical History Medical History Fungal dermatitis Hypertension MRSA infection Gastroesophageal reflux Chronic obstructive pulmonary disease Thromboangiitis obliterans Psoriasis Obstructive sleep apnea Mixed hyperlipidemia Diabetic peripheral angiopathy Type 2 diabetes mellitus Obesity Surgical History Surgical History History of appendectomy History of left below knee amputation Family History Family History Mother Patient's mother is Infection Father Stomach cancer Patient's father is Other Colon cancer Son Brain tumor Social History Social History Social History: Surrogate medical decision maker: Rolanda Kelley, spouse. Code status: Full code. Smoking packs per day: 2 Smoking cigarettes per day: 40.0 Years smoked: 37 Smoking pack-years: 74.00 Smoking status: Former smoker Tobacco type: cigarettes Smoking end date: 11/29/06 Alcohol intake: former Substance use: former Substance use type: marijuana Last use: 2009 Do You Feel Safe in your Home?: Yes Lack of Transportation: No Lack of Food: Never True Current Housing: I Have Housing Concerned About Future Housing: No Difficulty Paying Gas/Electric Bills: No Difficulty Paying for Meds: No Currently Unemployed: No Education: Trade/Vocational Certificate Difficulty w/ Childcare or Family Care: No Living arrangements: with family Occupation/Education: retired Spiritual care concerns: No Exam 2 Narrative: GENERAL: Well-appearing, well-nourished, and in no acute distress. HEAD: Normocephalic, atraumatic. EYES: PERRLA and EOMI. ENT: Nares clear, no rhinorrhea or epistaxis. Mucous membranes moist. NECK: Supple. CHEST: Clear to auscultation. No respiratory distress. HEART: Regular rate and rhythm. No murmur heard. Normal peripheral pulses. ABDOMEN: Soft, nontender, nondistended, normal active bowel sounds. EXTREMITIES: Normal range of motion. No edema. Below-knee amputation left lower extremity SKIN: Warm, dry, no rash. NEURO: No focal deficits. Alert and oriented x3. PSYCH: Normal mood and affect. Course Vital Signs Vital signs: Vital Signs Temperature 39.2 C H 03/08/25 18:39 Pulse Rate 126 H 03/08/25 18:39 Respiratory Rate 26 H 03/08/25 18:39 Blood Pressure 109/62 03/08/25 18:39 Pulse Oximetry 93 03/08/25 18:39 Oxygen Delivery Nasal Cannula 03/08/25 18:39 Oxygen Flow Rate 2 03/08/25 18:39 Temperature 38.4 C H 03/08/25 23:49 Pulse Rate 119 H 03/08/25 23:49 Respiratory Rate 21 H 03/08/25 23:49 Blood Pressure 125/90 03/08/25 23:49 Pulse Oximetry 100 03/08/25 23:49 Oxygen Delivery Nasal Cannula 03/08/25 18:54 Oxygen Flow Rate 4 03/08/25 18:54 Medical Decision Making [facility] Narrative Medical decision making narrative: Differential diagnosis includes pneumonia, sepsis, Laboratory studies were obtained on the patient showed a white count of 20 Electrolytes showed normal lactic acid 1.9 troponin was negative but then increased 0.103 procalcitonin 0.4 chest x-ray showed atelectasis versus infiltrate CTA chest abdomen pelvis was obtained it did show of atelectasis which is most likely the source the patient's infection and leukocytosis incidentally the patient was found to have abdominal aortic aneurysm infrarenal of that was under 5 cm and a left iliac that was 5.8 cm. Case was discussed with vascular surgery at [facility] who did not feel the patient warranted emergent transfer and that the patient should follow up as an outpatient with vascular surgery after his underlying sepsis has been managed. This was further discussed with our hospitalist who requested the patient remain still be transferred case was discussed with [facility] and hospitalist service who given that the vascular surgery does not want to do an immediate intervention refused to accept patient in transfer as the patient is within the realm a [place] of our facility this was then discussed with the hospitalist who accepted the patient locally Vital Signs Vital Signs: Vital Signs Temperature 39.2 C H 03/08/25 18:39 Pulse Rate 126 H 03/08/25 18:39 Respiratory Rate 26 H 03/08/25 18:39 Blood Pressure 109/62 03/08/25 18:39 Pulse Oximetry 93 03/08/25 18:39 Oxygen Delivery Nasal Cannula 03/08/25 18:39 Oxygen Flow Rate 2 03/08/25 18:39 Temperature 38.4 C H 03/08/25 23:49 Pulse Rate 119 H 03/08/25 23:49 Respiratory Rate 21 H 03/08/25 23:49 Blood Pressure 125/90 03/08/25 23:49 Pulse Oximetry 100 03/08/25 23:49 Oxygen Delivery Nasal Cannula 03/08/25 18:54 Oxygen Flow Rate 4 03/08/25 18:54 Lab Data 03/08/25 19:47 03/08/25 19:47 Labs: Lab Results 03/08/25 03/08/25 03/08/25 Range/Units 19:46 19:47 21:41 WBC 20.8 H (4.5-10.0) K/mm3 RBC 4.45 L (4.6-6.20) M/mm3 Hgb 12.5 L (14.0-18.0) g/dL Hct 38.6 L (42.0-52.0) % MCV 86.7 (80-100) fl MCH 28.1 (26-34) pg MCHC 32.4 (32-36) g/dl RDW 15.4 H (11.5-14.5) % Plt Count 243 (150-375) k/mm3 MPV 9.7 (7.4-10.4) fl Immature Gran % (Auto) 0.5 (0-0.5) % Neut % (Auto) 92.2 H (45.5-73.1) % Lymph % (Auto) 1.8 L (18.3-44.2) % Mcminn % (Auto) 5.3 (2.6-8.5) % Eos % (Auto) 0.0 (0-4.4) % Baso % (Auto) 0.2 (0.2-1.2) % Lymph # (Auto) 0.38 L (0.9-3.2) K/mm3 Mcminn # (Auto) 1.1 H (0.1-0.6) K/mm3 Eos # (Auto) 0.0 (0-0.3) K/mm3 Baso # (Auto) 0.1 (0.0-0.1) K/mm3 Abs Immat Gran (auto) 0.11 H (0.00-0.031) K/mm3 Absolute Neuts (auto) 19.2 H (1.3-6.7) K/mm3 Absolute Nucleated RBC 0.000 (0.0-0.012) K/mm3 Nucleated RBC % 0.0 (0.0-0.2) % PT 13.5 (11.1-14.7) Seconds INR 1.0 APTT 24.7 (22.3-36.8) Seconds Sodium 132 L (137-145) mmol/L Potassium 4.1 (3.4-5.0) mmol/L Chloride 94 L (98-107) mmol/L Carbon Dioxide 26 (22-30) mmol/L Anion Gap 12 (4-12) mmol/L BUN 24 H (9-20) mg/dL Creatinine 0.86 (0.7-1.3) mg/dL Estim Creat Clear Calc 91 ml/min Estimated GFR > 60 (59 - ) Glucose 215 H (65-110) mg/dL Lactic Acid 1.9 (0.7-2.0) mmol/L Calcium 9.0 (8.4-10.2) mg/dL Total Bilirubin 0.9 (0.2-1.3) mg/dL AST 27 (17-59) U/L ALT 36 (6-50) U/L Alkaline Phosphatase 92 (38-126) U/L Troponin I 0.029 (0.000-0.034) ng/mL NT-Pro-B Natriuret Pep 189 H (19.9-100) pg/mL Total Protein 7.0 (6.3-8.2) g/dL Albumin 4.2 (3.5-5.1) g/dL Procalcitonin 0.4 ng/mL Urine Color Yellow (Yellow) Urine Appearance Clear (Clear) Urine pH 6.0 (5.0-9.0) Ur Specific [place] > 1.045 H (1.001-1.035) Urine Protein 2+ H (Negative) mg/dL Urine Glucose (UA) Negative (Negative) mg/dL Urine Ketones Trace H (Negative) mg/dL Ur Blood (Man) Negative (Negative) Urine Nitrate Negative (Negative) Urine Bilirubin Negative (Negative) Urine Urobilinogen 0.2 (<2.0) mg/dL Leukocyte Esterase Rfl Negative (Negative) MORRIS/UL Urine RBC 0-2 (0-2) /hpf Urine WBC 0-5 (0-3) /hpf Ur Squamous Epith Cells None seen (Few) /hpf Urine Bacteria None seen /hpf Urine Casts 0-2 Influenza A (RT-PCR) Negative (Negative) Influenza B (RT-PCR) Negative (Negative) RSV (RT-PCR) Negative (Negative) SARS-CoV-2 RNA (RT-PCR) Negative (Negative) 03/08/25 Range/Units 22:45 WBC (4.5-10.0) K/mm3 RBC (4.6-6.20) M/mm3 Hgb (14.0-18.0) g/dL Hct (42.0-52.0) % MCV (80-100) fl MCH (26-34) pg MCHC (32-36) g/dl RDW (11.5-14.5) % Plt Count (150-375) k/mm3 MPV (7.4-10.4) fl Immature Gran % (Auto) (0-0.5) % Neut % (Auto) (45.5-73.1) % Lymph % (Auto) (18.3-44.2) % Mcminn % (Auto) (2.6-8.5) % Eos % (Auto) (0-4.4) % Baso % (Auto) (0.2-1.2) % Lymph # (Auto) (0.9-3.2) K/mm3 Mcminn # (Auto) (0.1-0.6) K/mm3 Eos # (Auto) (0-0.3) K/mm3 Baso # (Auto) (0.0-0.1) K/mm3 Abs Immat Gran (auto) (0.00-0.031) K/mm3 Absolute Neuts (auto) (1.3-6.7) K/mm3 Absolute Nucleated RBC (0.0-0.012) K/mm3 Nucleated RBC % (0.0-0.2) % PT (11.1-14.7) Seconds INR APTT (22.3-36.8) Seconds Sodium (137-145) mmol/L Potassium (3.4-5.0) mmol/L Chloride (98-107) mmol/L Carbon Dioxide (22-30) mmol/L Anion Gap (4-12) mmol/L BUN (9-20) mg/dL Creatinine (0.7-1.3) mg/dL Estim Creat Clear Calc ml/min Estimated GFR (59 - ) Glucose (65-110) mg/dL Lactic Acid (0.7-2.0) mmol/L Calcium (8.4-10.2) mg/dL Total Bilirubin (0.2-1.3) mg/dL AST (17-59) U/L ALT (6-50) U/L Alkaline Phosphatase (38-126) U/L Troponin I 0.103 H* D (0.000-0.034) ng/mL NT-Pro-B Natriuret Pep (19.9-100) pg/mL Total Protein (6.3-8.2) g/dL Albumin (3.5-5.1) g/dL Procalcitonin ng/mL Urine Color (Yellow) Urine Appearance (Clear) Urine pH (5.0-9.0) Ur Specific [place] (1.001-1.035) Urine Protein (Negative) mg/dL Urine Glucose (UA) (Negative) mg/dL Urine Ketones (Negative) mg/dL Ur Blood (Man) (Negative) Urine Nitrate (Negative) Urine Bilirubin (Negative) Urine Urobilinogen (<2.0) mg/dL Leukocyte Esterase Rfl (Negative) MORRIS/UL Urine RBC (0-2) /hpf Urine WBC (0-3) /hpf Ur Squamous Epith Cells (Few) /hpf Urine Bacteria /hpf Urine Casts Influenza A (RT-PCR) (Negative) Influenza B (RT-PCR) (Negative) RSV (RT-PCR) (Negative) SARS-CoV-2 RNA (RT-PCR) (Negative) Discharge Plan Discharge Clinical Impression: Sepsis, Pneumonia, Leukocytosis Patient Disposition: Still a Patient Condition: Stable Patient Language: Finnish Prescriptions: No Action glimepiride 2 mg tablet 2 mg PO QAM Qty: 90 1RF furosemide 20 mg tablet 20 mg PO BID Qty: 180 1RF Rx Instructions: MORNING AND MID AFTERNOON losartan 50 mg tablet 50 mg PO BID Qty: 180 1RF metformin 500 mg tablet 500 mg PO BID Qty: 180 1RF rosuvastatin [Crestor] 20 mg tablet 20 mg PO DAILY Qty: 90 1RF aspirin 81 mg capsule 81 mg PO DAILY (DME) inhalational spacing device Spacer See Rx Instructions .ROUTE .MEDSUPPLY Qty: 1 0RF Rx Instructions: As directed guaifenesin [Mucus Relief ER] 600 mg Tablet Extended Release 12hr 600 mg PO Q12HR Qty: 30 0RF loratadine 10 mg Tablet 10 mg PO QAM Qty: 30 0RF albuterol sulfate 90 mcg/actuation HFA aerosol inhaler 1 inh inhalation QID PRN (Reason: shortness of breath or wheezing) Qty: 8.5 0RF (DME) 2 Knee selves, 4- 5 ply socks, 4- 3 ply socks, 4- Anti-microbial socks See Rx Instructions .Route .MEDSUPPLY Qty: 1 0RF Rx Instructions: As directed Trelegy Ellipta 100-62.5-25 mcg blister with device 1 inh inhalation Q24H Qty: 60 5RF Rx Instructions: rinse and spit gemfibrozil 600 mg tablet 600 mg PO BID Qty: 180 1RF Follow-up/Referrals: Yong Bui DO [Primary Care Provider] - Time of Disposition: 02:51
[2025-03-08 19:46] VITALS: BP 124/91; PULSE 120; RESP 23; TEMP 39.1; O2SAT 95
[2025-03-08 19:55] LABS: Basophils Absolute Auto 0.1 K/mm3 (0.0-0.1); Basophils Percent Auto 0.2 % (0.2-1.2); Hematocrit 38.6 % (42.0-52.0); Hemoglobin 12.5 g/dL (14.0-18.0); Immature Granulocyte Absolute 0.11 K/mm3 (0.00-0.031); Immature Granulocyte Percent A 0.5 % (0-0.5); Lymphocytes Absolute Auto 0.38 K/mm3 (0.9-3.2); Lymphocytes Percent Auto 1.8 % (18.3-44.2); Mean Corpuscular HGB Conc 32.4 g/dl (32-36); Mean Corpuscular Hemoglobin 28.1 pg (26-34); Mean Corpuscular Volume 86.7 fl (80-100); Mean Platelet Volume 9.7 fl (7.4-10.4); Monocytes Absolute Auto 1.1 K/mm3 (0.1-0.6); Monocytes Percent Auto 5.3 % (2.6-8.5); Neutrophils Absolute Auto 19.2 K/mm3 (1.3-6.7); Neutrophils Percent Auto 92.2 % (45.5-73.1); Platelet Count Result 243 k/mm3 (150-375); Red Blood Count 4.45 M/mm3 (4.6-6.20); Red Cell Distribution Width 15.4 % (11.5-14.5); White Blood Count 20.8 K/mm3 (4.5-10.0)
[2025-03-08 20:06] LABS: Prothrombin Time 13.5 Seconds (11.1-14.7)
[2025-03-08 20:07] LABS: Partial Thromboplastin Time 24.7 Seconds (22.3-36.8)
[2025-03-08 20:09] LABS: Lactic Acid Reflex 1.9 mmol/L (0.7-2.0)
[2025-03-08 20:10] LABS: Alanine Aminotransferase 36 U/L (6-50); Albumin Level 4.2 g/dL (3.5-5.1); Alkaline Phosphatase 92 U/L (38-126); Anion Gap 12 mmol/L (4-12); Aspartate Amino Transferase 27 U/L (17-59); Bilirubin,Total 0.9 mg/dL (0.2-1.3); Blood Urea Nitrogen 24 mg/dL (9-20); Carbon Dioxide 26 mmol/L (22-30); Chloride 94 mmol/L (98-107); Estimated CRCL calculation 91 ml/min; Estimated Glomerular Filt Rate > 60; Glucose 215 mg/dL (65-110); Potassium 4.1 mmol/L (3.4-5.0); Sodium 132 mmol/L (137-145)
[2025-03-08 20:22] LABS: NT Pro B Type Natriuretic Pept 189 pg/mL (19.9-100); Troponin I 0.029 ng/mL (0.000-0.034)
[2025-03-08 20:28] LABS: Procalcitonin 0.4 ng/mL
[2025-03-08 20:31] LABS: Influenza A QL RT-PCR Negative (Negative); Influenza B QL RT-PCR Negative (Negative); RSV RNA, RT-PCR Negative (Negative); SARS-CoV-2 RNA PCR Negative (Negative)
[2025-03-08 21:48] VITALS: TEMP 37.3
[2025-03-08 21:49] VITALS: BP 125/61; PULSE 105; RESP 24; TEMP 37.3; O2SAT 94
[2025-03-08 21:53] LABS: Add Urine Microscopic? YES; Appearance Urine Clear (Clear); Bacteria Urine None Seen /hpf; Bilirubin Urine Negative (Negative); Blood Urine Negative (Negative); Color Urine Yellow (Yellow); Glucose Urine UA Negative (Negative); Ketones Urine Trace mg/dL (Negative); Leukocyte Esterase Ur Negative LEU/UL (Negative); Nitrate Urine Negative (Negative); Non Pathogenic Casts 0-2; Protein Urine 2+ mg/dL (Negative); RBC Urine 0-2 /hpf (0-2); Specific Grav Ur > 1.045 (1.001-1.035); Squamous Epithelial Cell Urine None Seen /hpf (Few); Urobilinogen Urine 0.2 mg/dL (<2.0); WBC Urine 0-5 /hpf (0-3)
[2025-03-08] MEDS: SODIUM CHLORIDE 0.9% IV 1,000 ML 999 ML IV CONT (22:08)
--- NOTE | 2025-03-08 22:20 | ECG_ITS ---
Test Date: 2025-03-08 22:45:16 Measurements Intervals [place] Rate: 113 P: 0 OR: 0 QRS: -26 QRSD: 89 T: 56 QT: 279 QTc: 383 Interpretive Statements SINUS OR ECTOPIC ATRIAL TACHYCARDIA LOW QRS VOLTAGE IN PRECORDIAL LEADS POSSIBLE RIGHT VENTRICULAR CONDUCTION DELAY DELAYED PRECORDIAL R/S TRANSITION CONSIDER INFERIOR INFARCT, AGE INDETERMINATE BASELINE ARTIFACT- I, II, III, AVR, AVL, AVF, V1-V6 ABNORMAL ECG Compared to ECG 03/08/2025 18:45:38 HEART RATE HAS DECREASED Electronically Signed On 03-09-2025 06:21:41 CDT by Roscoe Zuniga D.O.
[2025-03-08] MEDS: AZITHROMYCIN 500 MG/NS 250 ML 500 MG/250 ML BAG 250 MG IVPB (22:46)
[2025-03-08 23:46] LABS: Troponin I 0.103 ng/mL (0.000-0.034)
[2025-03-08 23:49] VITALS: BP 125/90; PULSE 119; RESP 21; TEMP 38.4; O2SAT 100
--- NOTE | 2025-03-08 23:56 | PC.NURSE ---
Oral temp of 101.2. EDP Trev notified.
[2025-03-09] VITALS (17 sets, daily range): BP systolic 117–170; BP diastolic 62–88; PULSE 93–124; RESP 18–27; TEMP 36.6–37.4; O2SAT 91–100; BMI 43.6
--- NOTE | 2025-03-09 | ECHO_ITS ---
Patient Info Name: Frank Kelley Age: 75 years : 1950 Gender: Male Ht: 66 in Wt: 370 lbs BSA: 2.91 m2 HR: 100 bpm BP: 153 / 66 mmHg Heart Rhythm: Sinus Rhythm Technical Quality: Fair Exam Date: 03/09/2025 1:34 PM Exam Location: Echo Lab Patient Status: Inpatient Admit Date: 03/09/2025 Staff Ordering Physician: Kwasi Cavanaugh MD Bowl Turner: Carmen Mansfield RDCS Attending Provider: Bhavin Machado MD Exam Type: CA echo doppler color flow Study Info Indications - CHF Complete two-dimensional, color flow and Doppler transthoracic echocardiogram is performed. Summary 1. Left ventricular chamber dimension is normal. 2. Left ventricular systolic function is normal, estimated at >70%. 3. There is mildly increased left ventricular wall thickness. 4. The left ventricular diastolic function is grade I diastolic dysfunction. 5. Right ventricular systolic function is normal. 6. There is mild tricuspid valve regurgitation. Left Ventricle Left ventricular chamber dimension is normal. Left ventricular systolic function is normal, estimated at >70%. There is mildly increased left ventricular wall thickness. The left ventricular diastolic function is grade I diastolic dysfunction. Right Ventricle Right ventricular chamber dimension is normal. Right ventricular systolic function is normal. Left Atria Left atrial chamber dimension is normal. Right Atria Right atrial chamber dimension is normal. Atrial Septum Intact interatrial septum visualized by color flow imaging. Aortic Valve The aortic valve is trileaflet. There is no aortic valve stenosis. There is no aortic valve regurgitation. There is mild aortic valve calcification. Pulmonic Valve The pulmonic valve is not well visualized. Mitral Valve There is trace mitral valve regurgitation. Tricuspid Valve There is mild tricuspid valve regurgitation. Pericardium/Pleural The pericardium appears epicardial fat pad. There is no pericardial effusion. Inferior Vena Cava Normal inferior vena cava with >50% collapse upon inspiration consistent with normal right atrial pressure, 3 mmHg. Aorta The aortic root size at the sinus of Valsalva is not well visualized. Left Ventricular Outflow Tract Name Value Normal LVOT 2D LVOT Diameter 2.1 cm LVOT Doppler LVOT Peak Gradient 6 mmHg LVOT Mean Gradient 3 mmHg LVOT VTI 20 cm LVOT VTI/AV VTI Ratio 0.6 LVOT Stroke Volume 70 ml LVOT CO 6.9 l/min LVOT CI 2.4 l/min/m2 Pulmonic Valve Name Value Normal RVOT Doppler RVOT Peak Gradient 2 mmHg PV Doppler PV Peak Gradient 5 mmHg Mitral Valve Name Value Normal MV Doppler MV Decel Traverse 449 cm/s2 MV PHT 64 ms MV Area (PHT) 3.4 cm2 4.0-5.0 MV Diastolic Function MV E Peak Velocity 99 cm/s MV A Peak Velocity 114 cm/s MV E/A 0.9 MV Decel Time 221 ms MV Annular TDI MV E/e' (Septal) 14.6 <=8.0 MV E/e' (Lateral) 13.0 <=8.0 MV E/e' (Average) 13.8 Tricuspid Valve Name Value Normal TV Regurgitation Doppler TR Peak Velocity 291 cm/s TR Peak Gradient 34 mmHg Estimated PAP/RSVP RA Pressure 3 mmHg <=5 PA Systolic Pressure 37 mmHg <36 RV Systolic Pressure 37 mmHg <36 Aortic Valve Name Value Normal AV Doppler AV Peak Velocity 214 cm/s AV Peak Gradient 18 mmHg AV Mean Gradient 9 mmHg AV VTI 33 cm AV Area (Cont Eq VTI) 2.1 cm2 >=3.0 AV Area (Cont Eq Justin) 1.9 cm2 AV Regurgitation 2D LVOT Area 3.4 cm2 Ventricles Name Value Normal LV Dimensions 2D/MM IVS Diastolic Thickness (2D) 1.2 cm 0.6-1.0 LVID Diastole (2D) 4.6 cm 4.2-5.8 LVIW Diastolic Thickness (2D) 1.2 cm 0.6-1.0 LVID Systole (2D) 2.9 cm 2.5-4.0 LVOT Diameter 2.1 cm LV Mass (2D Cubed) 207.32 g 88.00-224.00 LV Mass Index (2D Cubed) 71 g/m2 49-115 Relative Wall Thickness (2D) 0.54 LV Fractional Shortening/Ejection Fraction 2D/MM LV Fractional Shortening (2D) 37 % 25-43 LV EF (2D Teicholz) 67 % 52-72 LV Diastolic Volume (4C MOD) 151 ml LV EF (4C MOD) 75 % LV Diastolic Volume (2C MOD) 127 ml LV EF (2C MOD) 68 % LV Diastolic Volume (BP MOD) 140 ml 62-150 LV Diastolic Volume Index (BP MOD) 48 ml/m2 34-74 LV Systolic Volume (BP MOD) 39 ml 21-61 LV Systolic Volume Index (BP MOD) 14 ml/m2 11-31 LV EF (BP MOD) 72 % 52-72 LV Diastolic Length (4C) 8.3 cm LV Systolic Length (4C) 7.0 cm LV Stroke Volume (4C MOD) 113 ml Atria Name Value Normal LA Dimensions LA Volume (4C A-L) 74 ml LA Volume (BP A-L) 76 ml RA Dimensions RA Area (4C) 19.4 cm2 <=18.0 Report Signatures
[2025-03-09] MEDS: ACETAMINOPHEN 500 MG TABLET 1000 MG PO (00:06)
--- NOTE | 2025-03-09 05:40 | ADMGEN ---
This patient, Frank Kelley III, was admitted to IMU Room 205-02. Patient/family oriented to hospital policies and general routines including ID bracelet, bed and alarms, visiting hours, pain management, procedures, bathroom and other care routines, personal items, smoking policy, room service/diet, and visiting hours. Information on how to activate the Rapid Response Team has been discussed. Patient/Family are encouraged to report perceived risks to care and to ask questions if they do not understand what they are told or what they should do.
[2025-03-09 06:00] LABS: MRSA (PCR) NOT DETECTED (NOT DETECTE)
[2025-03-09] MEDS: SODIUM CHLORIDE 0.9% IV 1,000 ML 125 ML IV CONT ×2 (06:08→17:04)
--- NOTE | 2025-03-09 08:03 | P.HP_ITS ---
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 Pertinent ED labs: WBC 20.8, hemoglobin 12.5, hematocrit 38.6, platelet 243, sodium 132, potassium 4.1, chloride 94, BUN 24, creatinine 0.6 Troponin: 0.029 > 0.103 BNP 189 Procalcitonin 0.4 UA: Negative leukocyte esterase and nitrites Negative for influenza, RSV and COVID CTA chest/abdomen/pelvis: CHEST: 1. No pulmonary embolism. 2. No acute cardiopulmonary pathology. 3. Possible nodule in the right middle lobe. 3 months follow-up CT is advised. ABDOMEN/PELVIS: 1. 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 2. No evidence of appendicitis, diverticulitis or intestinal obstruction. During ED evaluation the CT scan shows abdominal aortic aneurysm infrarenal of that was under 5 cm and a left iliac that was 5.8 cm. Initially the admission was refused by the quill buncher and sorter and initiated transfer to [place] under the vascular surgeon but unfortunately the transfer was not accepted. Patient is currently admitted in the setting of sepsis possibly due to COPD exacerbation with with either bacterial or viral superimposed infection. No evidence of UTI, GI, or NIB FINISHER infection. 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 Initially they tried venous/artery graft in 2006 but it was unsuccessful. Patient reported lately he was not able to walk and was shaking and some chest discomfort and came to ED. Review of Systems Review of Systems: A 10 system review of systems was completed on the patient and is negative except for what is stated in the HPI. Nursing and ancillary documentation was reviewed. [facility], [facility] Past Medical History Medical History Fungal dermatitis Hypertension MRSA infection Gastroesophageal reflux Chronic obstructive pulmonary disease Thromboangiitis obliterans Psoriasis Obstructive sleep apnea Mixed hyperlipidemia Diabetic peripheral angiopathy Type 2 diabetes mellitus Obesity Surgical History Surgical History History of appendectomy History of left below knee amputation Family History Family History Mother Patient's mother is Infection Father Stomach cancer Patient's father is Other Colon cancer Son Brain tumor Social History Social History Social History: Surrogate medical decision maker: Rolanda Kelley, spouse. Code status: Full code. Smoking packs per day: 2 Smoking cigarettes per day: 40.0 Years smoked: 30 Smoking pack-years: 60.00 Smoking status: Former smoker Tobacco type: cigarettes Smoking end date: 11/29/06 Alcohol intake: former Drinks per week: 74 Substance use: former Substance use type: marijuana Last use: 2009 Do You Feel Safe in your Home?: Yes Lack of Transportation: No Lack of Food: Never True Current Housing: I Have Housing Concerned About Future Housing: No Difficulty Paying Gas/Electric Bills: No Difficulty Paying for Meds: No Currently Unemployed: No Education: Trade/Vocational Certificate Difficulty w/ Childcare or Family Care: No Living arrangements: with family Occupation/Education: retired Spiritual care concerns: No Meds Home Medications and Allergies Home Medications ?Medication ?Instructions ?Recorded ?Confirmed ?Type 2 Knee selves, 4- 5 ply socks, 4- #1 ea 10/26/22 03/09/25 Rx 3 ply socks, 4- Anti-microbial socks aspirin 81 mg capsule 81 mg PO DAILY 03/12/23 03/09/25 History guaifenesin 600 mg tablet, 600 mg PO Q12HR #30 tabs 08/15/24 03/09/25 Rx extended release 12 hr (Mucus Relief ER) loratadine 10 mg tablet 10 mg PO QAM #30 tabs 08/15/24 03/09/25 Rx inhalational spacing device #1 ea 09/14/24 03/09/25 Rx Trelegy Ellipta 100 mcg-62.5 1 inh inhalation Q24H #60 ea 09/20/24 03/09/25 Rx mcg-25 mcg powder for inhalation (arafijickeh-mxeavmlfn-pnmiwmna) gemfibrozil 600 mg tablet 600 mg PO BID #180 tabs 01/11/25 03/09/25 Rx furosemide 20 mg tablet 20 mg PO BID #180 tabs 02/23/25 03/09/25 Rx glimepiride 2 mg tablet 2 mg PO QAM #90 tabs 02/23/25 03/09/25 Rx losartan 50 mg tablet 50 mg PO BID #180 tabs 02/23/25 03/09/25 Rx metformin 500 mg tablet 500 mg PO BID #180 tabs 02/23/25 03/09/25 Rx rosuvastatin 20 mg tablet (Crestor) 20 mg PO DAILY #90 tabs 02/23/25 03/09/25 Rx Allergies Allergy/AdvReac Type Severity Reaction Status Date / Time No Known Allergies Allergy Verified 03/09/25 06:29 Vital Signs Vital Signs - 24 hr 03/08/25 18:39 03/08/25 18:54 03/08/25 19:46 Temperature 102.6 F H Pulse Rate 126 H 120 H Respiratory Rate 26 H Blood Pressure 109/62 Pulse Oximetry 93 94 Oxygen Delivery Nasal Cannula Nasal Cannula Oxygen Flow Rate 2 4 03/08/25 19:46 03/08/25 21:48 03/08/25 21:49 Temperature 102.4 F H 99.2 F 99.2 F Pulse Rate 120 H 105 H Respiratory Rate 23 H 24 H Blood Pressure 124/91 H 125/61 Pulse Oximetry 95 94 Oxygen Delivery Oxygen Flow Rate 03/08/25 23:49 03/09/25 03:11 03/09/25 03:18 Temperature 101.2 F H 99.4 F Pulse Rate 119 H 106 H 124 H Respiratory Rate 21 H 22 H 20 Blood Pressure 125/90 132/88 Pulse Oximetry 100 97 98 Oxygen Delivery Nasal Cannula Oxygen Flow Rate 4 03/09/25 05:28 03/09/25 07:53 Temperature 99.4 F 98.9 F Pulse Rate 106 H 106 H Respiratory Rate 22 H 23 H Blood Pressure 132/88 153/66 H Pulse Oximetry 97 98 Oxygen Delivery Oxygen Flow Rate Exam Narrative: GENERAL: Well-appearing, well-nourished, and in no acute distress. HEAD: Normocephalic, atraumatic. EYES: PERRLA and EOMI. ENT: Nares clear, no rhinorrhea or epistaxis. Mucous membranes moist. NECK: Supple. CHEST: Clear to auscultation. No respiratory distress. HEART: Regular rate and rhythm. No murmur heard. Normal peripheral pulses. ABDOMEN: Soft, nontender, nondistended, normal active bowel sounds. EXTREMITIES: Normal range of motion. No edema. Below-knee amputation left lower extremity SKIN: Warm, dry, no rash. NEURO: No focal deficits. Alert and oriented x3. PSYCH: Normal mood and affect. H&P: Results Labs Labs: Short CBC 03/08/25 Range/Units 19:47 WBC 20.8 H (4.5-10.0) K/mm3 Hgb 12.5 L (14.0-18.0) g/dL Hct 38.6 L (42.0-52.0) % Plt Count 243 (150-375) k/mm3 BMP 03/08/25 19:47 Sodium 132 L Potassium 4.1 Chloride 94 L Carbon Dioxide 26 BUN 24 H Creatinine 0.86 Glucose 215 H Calcium 9.0 Cardiac Enzymes 03/08/25 03/08/25 Range/Units 19:47 22:45 Troponin I 0.029 0.103 H* D (0.000-0.034) ng/mL Liver Function 03/08/25 Range/Units 19:47 Total Bilirubin 0.9 (0.2-1.3) mg/dL AST 27 (17-59) U/L ALT 36 (6-50) U/L Alkaline Phosphatase 92 (38-126) U/L Albumin 4.2 (3.5-5.1) g/dL Urine 03/08/25 Range/Units 21:41 Urine Color Yellow (Yellow) Urine Appearance Clear (Clear) Urine pH 6.0 (5.0-9.0) Ur Specific Vance > 1.045 H (1.001-1.035) Urine Protein 2+ H (Negative) mg/dL Urine Glucose (UA) Negative (Negative) mg/dL Assessment and Plan Assessment and plan (1) Hypertension: Qualifiers: Hypertension type: primary hypertension Qualified Code(s): I10 - Essential (primary) hypertension Code(s): I10 - Essential (primary) hypertension Status: Chronic (2) Elevated troponin: Code(s): R79.89 - Other specified abnormal findings of blood chemistry Status: Acute (3) Type 2 diabetes mellitus: Qualifiers: Diabetes mellitus alf insulin use: without terminal computer operator use Diabetes mellitus complication status: with circulatory complication Diabetes mellitus complication detail: with peripheral angiopathy with gangrene Qualified Code(s): E11.52 - Type 2 diabetes mellitus with diabetic peripheral angiopathy with gangrene Code(s): E11.9 - Type 2 diabetes mellitus without complications Status: Acute (4) Diabetic peripheral angiopathy: Code(s): E11.51 - Type 2 diabetes mellitus with diabetic peripheral angiopathy without gangrene Status: Acute (5) Obesity: Qualifiers: Obesity type: due to excess calories Obesity classification: adult class 3 (BMI >= 40) Serious obesity comorbidity presence: with serious comorbidity Body mass index: BMI 45.0-49.9 Qualified Code(s): E66.01 - Morbid (severe) obesity due to excess calories; Z68.42 - Body mass index [BMI] 45.0- 49.9, adult Code(s): E66.9 - Obesity, unspecified Status: Acute (6) COPD (chronic obstructive pulmonary disease): Qualifiers: COPD type: chronic bronchitis Chronic bronchitis type: mucopurulent Qualified Code(s): J41.1 - Mucopurulent chronic bronchitis Code(s): J44.9 - Chronic obstructive pulmonary disease, unspecified Status: Acute Plan COPD Exacerbation Vital signs improved and stable Started on Ceftriaxone and azithromycin monitor cultures MRSA negative On 2 to 3 L nasal cannula encourage oral intake Non ST elevation NC Trend troponin History of diabetes HB A1c 6.7 Previous smoker 2 PPD, quit 2004 Continue Rosuvastatin 20 mg, and aspirin 81 mg Heparin drip as per Cardiology recommendation and give sublingual nitro if needed Echocardiogram pending Denies any illicit drug use Reviewed EKG and CXR Continue furosemide, losartan Type 2 diabetes mellitus Hold glimepiride Hold metformin Low-dose Sliding scale, will titrate as needed HbA1c 6.7 Hospitalist MIPS Advance Care Plan I have confirmed that the patient's Advanced Care Plan is present, code status is documented, or surrogate decision maker is listed in patient medical record.: Yes Medication Reconciliation I have utilized all available resources to obtain, update and review the patients current medications (includes all prescriptions, OTC, herbals, cannabis, and nutritional supplements).: Yes
[2025-03-09 08:04] LABS: Hematocrit 39.2 % (42.0-52.0); Hemoglobin 12.4 g/dL (14.0-18.0); Mean Corpuscular HGB Conc 31.6 g/dl (32-36); Mean Corpuscular Hemoglobin 27.9 pg (26-34); Mean Corpuscular Volume 88.1 fl (80-100); Mean Platelet Volume 9.6 fl (7.4-10.4); Platelet Count Result 233 k/mm3 (150-375); Red Blood Count 4.45 M/mm3 (4.6-6.20); Red Cell Distribution Width 15.8 % (11.5-14.5); White Blood Count 15.7 K/mm3 (4.5-10.0)
[2025-03-09 08:30] LABS: Alanine Aminotransferase 36 U/L (6-50); Alkaline Phosphatase 73 U/L (38-126); Anion Gap 14 mmol/L (4-12); Aspartate Amino Transferase 39 U/L (17-59); Blood Urea Nitrogen 19 mg/dL (9-20); Calcium 8.9 mg/dL (8.4-10.2); Carbon Dioxide 22 mmol/L (22-30); Chloride 97 mmol/L (98-107); Estimated CRCL calculation 103 ml/min; Estimated Glomerular Filt Rate > 60; Glucose 132 mg/dL (65-110); Potassium 4.2 mmol/L (3.4-5.0); Sodium 133 mmol/L (137-145)
[2025-03-09] MEDS: IPRATROPIUM 0.5 MG/ALBUTEROL SULFATE 2.5 MG AMPUL.NEB 3 ML INHALATION ×2 (08:30→21:15)
[2025-03-09] MEDS: FLUTICASONE/UMECLIDIN/VILANTER 100-62.5-25 MCG ELLIPTA 1 PUFF INHALATION (08:41)
[2025-03-09 08:51] LABS: Troponin I 0.176 ng/mL (0.000-0.034)
[2025-03-09] MEDS: gemfibroziL 600 MG TABLET PO ×2 (09:04→17:05)
[2025-03-09] MEDS: ROSUVASTATIN 20 MG TABLET PO (09:05)
[2025-03-09] MEDS: guaiFENesin 12 HR 600 MG TABCR PO ×2 (09:05→20:44)
[2025-03-09] MEDS: FUROSEMIDE 20 MG TABLET PO ×2 (09:05→17:04)
[2025-03-09] MEDS: LORATADINE 10 MG TABLET PO (09:05)
[2025-03-09] MEDS: ASPIRIN 81 MG CHEWABLE TABLET PO (09:05)
[2025-03-09] MEDS: LOSARTAN POTASSIUM 50 MG TABLET PO ×2 (09:05→17:05)
[2025-03-09 11:13] LABS: Glucose Point of Care 182 mg/dl (65-105)
--- NOTE | 2025-03-09 14:42 | P.CONCA_ITS ---
Assessment and Plan Assessment and plan (1) Elevated troponin: Code(s): R79.89 - Other specified abnormal findings of blood chemistry Status: Acute Assessment and Plan: Troponin levels are elevated at 0.103, 0.176. Doubt ACS as he is not having any anginal symptoms. Elevated troponin secondary to underlying infection, sepsis. Cannot rule out underlying coronary artery disease-she certainly has risk factors. Will arrange for outpatient stress testing after patient has recovered from his illness. Echocardiogram shows normal LV function with grade 1 diastolic dysfunction. Cardiology will sign off. Please call with any questions. (2) Hypertension: Qualifiers: Hypertension type: primary hypertension Qualified Code(s): I10 - Essential (primary) hypertension Code(s): I10 - Essential (primary) hypertension Status: Chronic Assessment and Plan: At goal (3) Mixed hyperlipidemia: Code(s): E78.2 - Mixed hyperlipidemia Status: Acute Assessment and Plan: Continue statin (4) COPD (chronic obstructive pulmonary disease): Qualifiers: COPD type: chronic bronchitis Chronic bronchitis type: mucopurulent Q ualified Code(s): J41.1 - Mucopurulent chronic bronchitis Code(s): J44.9 - Chronic obstructive pulmonary disease, unspecified Status: Acute Assessment and Plan: Per hospitalist (5) Pneumonia: Code(s): J18.9 - Pneumonia, unspecified organism Status: Acute Assessment and Plan: Per hospitalist History of Present Illness History of Present Illness Consult date/time: 03/09/25 14:42 Requesting physician: Kwasi Cavanaugh MD Consult reason: Other (elevated troponin) Reason For Visit: Pneumonia, Leukocytosis, Sepsis Narrative: Frank Kelley is a 75-year-old male with COPD and hypertension. This is a patient who presents to the hospital with a chief complaint of shortness of breath. He was admitted for management of COPD, pneumonia, cellulitis, and sepsis. Cardiology is consulted because of elevated troponin levels. Patient denies having any chest pain currently or at the time of admission. He does endorse some chronic left sided chest discomfort which she has been experiencing for several years. Denies any known cardiac history. At the time of my evaluation he states that his breathing has improved since time of admission and he does not have any active complaints. Review of Systems 2 Review of Systems: All systems reviewed & are unremarkable except as noted in HPI and below PMFSH Past Medical History Medical History Fungal dermatitis Hypertension MRSA infection Gastroesophageal reflux Chronic obstructive pulmonary disease Thromboangiitis obliterans Psoriasis Obstructive sleep apnea Mixed hyperlipidemia Diabetic peripheral angiopathy Type 2 diabetes mellitus Obesity Surgical History Surgical History History of appendectomy History of left below knee amputation Family History Family History Mother Patient's mother is Infection Father Stomach cancer Patient's father is Other Colon cancer Son Brain tumor Social History Social History Social History: Surrogate medical decision maker: Rolanda Kelley, spouse. Code status: Full code. Smoking packs per day: 2 Smoking cigarettes per day: 40.0 Years smoked: 30 Smoking pack-years: 60.00 Smoking status: Former smoker Tobacco type: cigarettes Smoking end date: 11/29/06 Alcohol intake: former Drinks per week: 74 Substance use: former Substance use type: marijuana Last use: 2009 Do You Feel Safe in your Home?: Yes Lack of Transportation: No Lack of Food: Never True Current Housing: I Have Housing Concerned About Future Housing: No Difficulty Paying Gas/Electric Bills: No Difficulty Paying for Meds: No Currently Unemployed: No Education: Trade/Vocational Certificate Difficulty w/ Childcare or Family Care: No Living arrangements: with family Occupation/Education: retired Spiritual care concerns: No Meds Home Medications and Allergies Home Medications ?Medication ?Instructions ?Recorded ?Confirmed ?Type 2 Knee selves, 4- 5 ply socks, 4- #1 ea 10/26/22 03/09/25 Rx 3 ply socks, 4- Anti-microbial socks aspirin 81 mg capsule 81 mg PO DAILY 03/12/23 03/09/25 History guaifenesin 600 mg tablet, 600 mg PO Q12HR #30 tabs 08/15/24 03/09/25 Rx extended release 12 hr (Mucus Relief ER) loratadine 10 mg tablet 10 mg PO QAM #30 tabs 08/15/24 03/09/25 Rx inhalational spacing device #1 ea 09/14/24 03/09/25 Rx Trelegy Ellipta 100 mcg-62.5 1 inh inhalation Q24H #60 ea 09/20/24 03/09/25 Rx mcg-25 mcg powder for inhalation (fwzwvwjksyt-bhlqeysxl-cdgnywdq) gemfibrozil 600 mg tablet 600 mg PO BID #180 tabs 01/11/25 03/09/25 Rx furosemide 20 mg tablet 20 mg PO BID #180 tabs 02/23/25 03/09/25 Rx glimepiride 2 mg tablet 2 mg PO QAM #90 tabs 02/23/25 03/09/25 Rx losartan 50 mg tablet 50 mg PO BID #180 tabs 02/23/25 03/09/25 Rx metformin 500 mg tablet 500 mg PO BID #180 tabs 02/23/25 03/09/25 Rx rosuvastatin 20 mg tablet (Crestor) 20 mg PO DAILY #90 tabs 02/23/25 03/09/25 Rx Allergies Allergy/AdvReac Type Severity Reaction Status Date / Time No Known Allergies Allergy Verified 03/09/25 06:29 Vital Signs Vital Signs - 24 hr 03/08/25 18:39 03/08/25 18:54 03/08/25 19:46 Temperature 39.2 C H Pulse Rate 126 H 120 H Respiratory Rate 26 H Blood Pressure 109/62 Pulse Oximetry 93 94 Oxygen Delivery Nasal Cannula Nasal Cannula Oxygen Flow Rate 2 4 03/08/25 19:46 03/08/25 21:48 03/08/25 21:49 Temperature 39.1 C H 37.3 C 37.3 C Pulse Rate 120 H 105 H Respiratory Rate 23 H 24 H Blood Pressure 124/91 H 125/61 Pulse Oximetry 95 94 Oxygen Delivery Oxygen Flow Rate 03/08/25 23:49 03/09/25 03:11 03/09/25 03:18 Temperature 38.4 C H 37.4 C Pulse Rate 119 H 106 H 124 H Respiratory Rate 21 H 22 H 20 Blood Pressure 125/90 132/88 Pulse Oximetry 100 97 98 Oxygen Delivery Nasal Cannula Oxygen Flow Rate 4 03/09/25 05:28 03/09/25 07:53 03/09/25 08:00 Temperature 37.4 C 37.2 C Pulse Rate 106 H 106 H Respiratory Rate 22 H 23 H Blood Pressure 132/88 153/66 H Pulse Oximetry 97 98 98 Oxygen Delivery Nasal Cannula Oxygen Flow Rate 4 03/09/25 08:00 03/09/25 10:00 03/09/25 12:00 Temperature 37.0 C Pulse Rate 115 H 121 H 103 H Respiratory Rate 27 H Blood Pressure 117/62 Pulse Oximetry 98 Oxygen Delivery Oxygen Flow Rate 03/09/25 12:00 03/09/25 12:00 Temperature Pulse Rate 108 H Respiratory Rate Blood Pressure Pulse Oximetry 98 Oxygen Delivery Nasal Cannula Oxygen Flow Rate 4 Exam 2 Const: General: comfortable, no acute distress, alert and awake O rientation/consciousness: patient oriented x3 HENMT: Head: normal to inspection Eyes: General: appearance normal, both eyes and all related structures P upils: Equal, round and reactive pupils present Neck: Neck: normal visual inspection, supple and no JVD Carotids: normal carotid upstroke Resp: Effort & Inspection: normal respiratory effort Auscultation: clear to auscultation bilaterally and diminished lung sounds diffuse Cardio: Rate: tachycardic Rhythm: regular rhythm Heart sounds: S1 normal heart sound present, S2 normal heart sound present and no murmurs GI: Auscultation: normal bowel sounds Skin: General skin exam: normal color Other: bilateral lower circumferential lower leg erythema Neuro: General: patient oriented x3 Cranial nerves: Yes Equal, round and reactive pupils present Psych: Appearance: grossly normal Mental Status: mental status grossly normal Results Labs and Meds 03/09/25 07:57 03/09/25 07:57 Lab results: Cardiac Enzymes 03/08/25 03/08/25 03/09/25 Range/Units 19:47 22:45 07:57 AST 27 39 (17-59) U/L Troponin I 0.029 0.103 H* D 0.176 H* (0.000-0.034) ng/mL Coagulation 03/08/25 Range/Units 19:47 PT 13.5 (11.1-14.7) Seconds APTT 24.7 (22.3-36.8) Seconds CBC 03/08/25 03/09/25 Range/Units 19:47 07:57 WBC 20.8 H 15.7 H (4.5-10.0) K/mm3 RBC 4.45 L 4.45 L (4.6-6.20) M/mm3 Hgb 12.5 L 12.4 L (14.0-18.0) g/dL Hct 38.6 L 39.2 L (42.0-52.0) % Plt Count 243 233 (150-375) k/mm3 Lymph # (Auto) 0.38 L (0.9-3.2) K/mm3 Crook # (Auto) 1.1 H (0.1-0.6) K/mm3 Eos # (Auto) 0.0 (0-0.3) K/mm3 Baso # (Auto) 0.1 (0.0-0.1) K/mm3 Comprehensive Metabolic Panel 03/08/25 03/09/25 Range/Units 19:47 07:57 Sodium 132 L 133 L (137-145) mmol/L Potassium 4.1 4.2 (3.4-5.0) mmol/L Chloride 94 L 97 L (98-107) mmol/L Carbon Dioxide 26 22 (22-30) mmol/L BUN 24 H 19 (9-20) mg/dL Creatinine 0.86 0.68 L (0.7-1.3) mg/dL Glucose 215 H 132 H (65-110) mg/dL Calcium 9.0 8.9 (8.4-10.2) mg/dL AST 27 39 (17-59) U/L ALT 36 36 (6-50) U/L Alkaline Phosphatase 92 73 (38-126) U/L Total Protein 7.0 7.0 (6.3-8.2) g/dL Albumin 4.2 4.0 (3.5-5.1) g/dL Intake and Output 03/08/25 03/09/25 03/09/25 23:59 07:59 15:59 Intake Total 1300 480 Output Total 350 Balance 1300 -350 480 Intake: IV 1300 Sodium Chloride 0.9% IV 1,000 1000 ml @ 999 mls/hr IV CONT .Q1H1M STA Rx#:[id number] Azithromycin 500 mg/Ns 250 ml 250 500 mg In 250 ml @ 250 mls/hr IVPB ONCE STA Rx#:[id number] cefTRIAXone 1 GM/NS 50 ML 1 gm 50 In 50 ml @ 100 mls/hr IVPB ONCE STA Rx#:[id number] Oral 480 Output: Urine 350 Other: # Unmeasured Voids 1 Patient Weight 03/09/25 23:59 Weight 122.7 kg
[2025-03-09 16:44] LABS: Glucose Point of Care 139 mg/dl (65-105)
--- NOTE | 2025-03-09 18:07 | PC.NURSE ---
Pt transferred to 331 bed 2. Report given to ROSY Morales.
[2025-03-09] MEDS: INSULIN ASPART (*BKC) 100 UNITS/ML SUB-Q (21:23)
[2025-03-09] MEDS: AZITHROMYCIN 500 MG/NS 250 ML 500 MG/250 ML BAG 125 MG IVPB (21:23)
[2025-03-09 22:29] LABS: Glucose Point of Care 203 mg/dl (65-105)
[2025-03-10] VITALS (15 sets, daily range): BP systolic 132–140; BP diastolic 65–78; PULSE 92–105; RESP 18–22; TEMP 36.7–37.2; O2SAT 98–100
[2025-03-10] MEDS: IPRATROPIUM 0.5 MG/ALBUTEROL SULFATE 2.5 MG AMPUL.NEB 3 ML INHALATION ×4 (01:06→20:04)
[2025-03-10 06:13] LABS: Basophils Percent Auto 0.4 % (0.2-1.2); Eosinophils Absolute Auto 0.2 K/mm3 (0-0.3); Eosinophils Percent Auto 1.8 % (0-4.4); Hematocrit 37.9 % (42.0-52.0); Hemoglobin 11.7 g/dL (14.0-18.0); Immature Granulocyte Absolute 0.06 K/mm3 (0.00-0.031); Immature Granulocyte Percent A 0.6 % (0-0.5); Lymphocytes Absolute Auto 1.35 K/mm3 (0.9-3.2); Lymphocytes Percent Auto 12.7 % (18.3-44.2); Mean Corpuscular HGB Conc 30.9 g/dl (32-36); Mean Corpuscular Volume 90.7 fl (80-100); Mean Platelet Volume 9.7 fl (7.4-10.4); Monocytes Absolute Auto 1.1 K/mm3 (0.1-0.6); Neutrophils Absolute Auto 7.9 K/mm3 (1.3-6.7); Neutrophils Percent Auto 74.5 % (45.5-73.1); Platelet Count Result 216 k/mm3 (150-375); Red Blood Count 4.18 M/mm3 (4.6-6.20); Red Cell Distribution Width 15.8 % (11.5-14.5); White Blood Count 10.6 K/mm3 (4.5-10.0)
[2025-03-10 06:26] LABS: Alanine Aminotransferase 48 U/L (6-50); Albumin Level 3.5 g/dL (3.5-5.1); Alkaline Phosphatase 79 U/L (38-126); Anion Gap 6 mmol/L (4-12); Aspartate Amino Transferase 55 U/L (17-59); Bilirubin,Total 0.5 mg/dL (0.2-1.3); Blood Urea Nitrogen 15 mg/dL (9-20); Calcium 8.1 mg/dL (8.4-10.2); Carbon Dioxide 31 mmol/L (22-30); Chloride 101 mmol/L (98-107); Estimated CRCL calculation 97 ml/min; Estimated Glomerular Filt Rate > 60; Glucose 103 mg/dL (65-110); Potassium 3.8 mmol/L (3.4-5.0); Sodium 138 mmol/L (137-145)
[2025-03-10 07:37] LABS: Glucose Point of Care 113 mg/dl (65-105)
[2025-03-10] MEDS: gemfibroziL 600 MG TABLET PO ×2 (07:47→16:31)
[2025-03-10] MEDS: ASPIRIN 81 MG CHEWABLE TABLET PO (07:48)
[2025-03-10] MEDS: ROSUVASTATIN 20 MG TABLET PO (08:21)
[2025-03-10] MEDS: FUROSEMIDE 20 MG TABLET PO ×2 (08:21→16:31)
[2025-03-10] MEDS: LORATADINE 10 MG TABLET PO (08:21)
[2025-03-10] MEDS: ENOXAPARIN 40 MG/0.4 ML SYRINGE SUB-Q (08:21)
[2025-03-10] MEDS: LOSARTAN POTASSIUM 50 MG TABLET PO ×2 (08:21→16:33)
[2025-03-10] MEDS: guaiFENesin 12 HR 600 MG TABCR PO ×2 (08:21→21:14)
--- NOTE | 2025-03-10 08:40 | P.PNIM_ITS ---
Progress Note: A&P Assessment and Plan (1) Hypertension: Qualifiers: Hypertension type: primary hypertension Qualified Code(s): I10 - Essential (primary) hypertension Code(s): I10 - Essential (primary) hypertension Status: Chronic (2) Elevated troponin: Code(s): R79.89 - Other specified abnormal findings of blood chemistry Status: Acute (3) Type 2 diabetes mellitus: Qualifiers: Diabetes mellitus superintendent marine oil terminal insulin use: without superintendent marine oil terminal use Diabetes mellitus complication status: with circulatory complication Diabetes mellitus complication detail: with peripheral angiopathy with gangrene Qualified Code(s): E11.52 - Type 2 diabetes mellitus with diabetic peripheral angiopathy with gangrene Code(s): E11.9 - Type 2 diabetes mellitus without complications Status: Acute (4) Diabetic peripheral angiopathy: Code(s): E11.51 - Type 2 diabetes mellitus with diabetic peripheral angiopathy without gangrene Status: Acute (5) Obesity: Qualifiers: Obesity type: due to excess calories Obesity classification: adult class 3 (BMI >= 40) Serious obesity comorbidity presence: with serious comorbidity Body mass index: BMI 45.0-49.9 Qualified Code(s): E66.01 - Morbid (severe) obesity due to excess calories; Z68.42 - Body mass index [BMI] 45.0- 49.9, adult Code(s): E66.9 - Obesity, unspecified Status: Acute (6) COPD (chronic obstructive pulmonary disease): Qualifiers: COPD type: chronic bronchitis Chronic bronchitis type: mucopurulent Qualified Code(s): J41.1 - Mucopurulent chronic bronchitis Code(s): J44.9 - Chronic obstructive pulmonary disease, unspecified Status: Acute Plan COPD Exacerbation Vital signs improved and stable Started on Ceftriaxone and azithromycin monitor cultures MRSA negative On 2 to 3 L nasal cannula encourage oral intake Non ST elevation [place] Cardiology believes due to underlying infection Cardiology wants to do OP stress test Trend troponin History of diabetes HB A1c 6.7 Previous smoker 2 PPD, quit 2004 Continue Rosuvastatin 20 mg, and aspirin 81 mg Heparin drip as per Cardiology recommendation and give sublingual nitro if needed Echocardiogram pending Denies any illicit drug use Reviewed EKG and CXR Continue furosemide, losartan Type 2 diabetes mellitus Hold glimepiride Hold metformin Low-dose Sliding scale, will titrate as needed HbA1c 6.7 Subjective Date/time seen: 03/10/25 08:40 Interval history: Blood culture positive for Gram-positive cocci.Patient denies any complaints Review of Systems Review of Systems: A 10 system review of systems was completed on the patient and is negative except for what is stated in the HPI. Nursing and ancillary documentation was reviewed. Exam Narrative: GENERAL: Well-appearing, well-nourished, and in no acute distress. HEAD: Normocephalic, atraumatic. EYES: PERRLA and EOMI. ENT: Nares clear, no rhinorrhea or epistaxis. Mucous membranes moist. NECK: Supple. CHEST: Clear to auscultation. No respiratory distress. HEART: Regular rate and rhythm. No murmur heard. Normal peripheral pulses. ABDOMEN: Soft, nontender, nondistended, normal active bowel sounds. EXTREMITIES: Normal range of motion. No edema. Below-knee amputation left lower extremity SKIN: Warm, dry, no rash. NEURO: No focal deficits. Alert and oriented x3. PSYCH: Normal mood and affect. Objective Data Vital Signs Vital Signs: Vital Signs - 24 hr 03/09/25 10:00 03/09/25 12:00 03/09/25 12:00 Temperature 98.6 F Pulse Rate 121 H 103 H 108 H Respiratory Rate 27 H Blood Pressure 117/62 Pulse Oximetry 98 Oxygen Delivery Oxygen Flow Rate 03/09/25 12:00 03/09/25 12:04 03/09/25 14:00 Temperature Pulse Rate 112 H 103 H Respiratory Rate 20 Blood Pressure Pulse Oximetry 98 98 Oxygen Delivery Nasal Cannula Nasal Cannula Oxygen Flow Rate 4 4 03/09/25 16:00 03/09/25 16:00 03/09/25 20:00 Temperature 99.0 F Pulse Rate 102 H 115 H Respiratory Rate 21 H Blood Pressure 151/82 H Pulse Oximetry 96 100 Oxygen Delivery Nasal Cannula Oxygen Flow Rate 4 03/09/25 20:45 03/09/25 20:49 03/09/25 21:15 Temperature 97.9 F Pulse Rate 93 99 Respiratory Rate 18 18 Blood Pressure 170/85 H 150/88 H Pulse Oximetry 91 Oxygen Delivery Oxygen Flow Rate 03/09/25 21:25 03/09/25 21:31 03/09/25 21:40 Temperature Pulse Rate 100 99 Respiratory Rate 18 Blood Pressure Pulse Oximetry 100 99 Oxygen Delivery Nasal Cannula Autopap Oxygen Flow Rate 4 04/12/25 01:06 03/10/25 01:13 03/10/25 05:24 Temperature 98.0 F Pulse Rate 105 H 92 95 Respiratory Rate 18 18 18 Blood Pressure 137/65 Pulse Oximetry 100 Oxygen Delivery Oxygen Flow Rate Intake/Output Intake/Output: Intake & Output 03/07/25 03/08/25 03/09/25 03/10/25 23:59 23:59 23:59 23:59 Intake Total 1300 2860 1150 Output Total 350 1475 Balance 1300 2510 -325 Meds/Results Medications: Active Medications Generic Name Dose Route Start Last Admin Trade Name Freq PRN Reason Stop Dose Admin Acetaminophen 650 mg 03/09/25 02:51 Acetaminophen 325 Mg Tablet PO Q4H PRN Mild Pain (1-3) or Fever Albuterol/Ipratropium 3 ml 03/09/25 08:00 03/10/25 01:06 Ipratropium 0.5 Mg/Albuterol Sulfate 2.5 Mg Ampul.Neb 3 Ml INHALATION 3 ml Q6HRT STUART Administration Aspirin 81 mg 03/09/25 08:00 03/10/25 07:48 Aspirin 81 Mg Chewable Tablet PO 81 mg DAILY@0800 STUART Administration Dextrose 12.5 gm 03/09/25 09:45 Dextrose 50% 25 Gm/50 Ml Syringe IV PUSH PRN PRN Hypoglycemia Protocol Enoxaparin Sodium 40 mg 03/10/25 09:00 03/10/25 08:21 Enoxaparin 40 Mg/0.4 Ml Syringe SUB-Q 40 mg DAILY STUART Administration Fluticasone/Umeclidinium/Vilanterol 1 puff 03/09/25 07:45 03/09/25 08:41 Fluticasone/Umeclidin/Vilanter 100-62.5-25 Mcg Ellipta INHALATION 1 puff Q24H STUART Administration Furosemide 20 mg 03/09/25 09:00 03/10/25 08:21 Furosemide 20 Mg Tablet PO 20 mg BID STUART Administration Gemfibrozil 600 mg 03/09/25 09:00 03/10/25 07:47 Gemfibrozil 600 Mg Tablet PO 600 mg BID STUART Administration Glucagon 1 mg 03/09/25 09:45 Glucagon For Inj 1 Mg Vial IM PRN PRN Hypoglycemia Protocol Glucose 15 gm 03/09/25 09:45 Glucose Oral Gel 15 Gm Of Glucse In 37.5 Gm Tube PO PRN PRN Hypoglycemia Protocol Guaifenesin 600 mg 03/09/25 09:00 03/10/25 08:21 Guaifenesin 12 Hr 600 Mg Tabcr PO 600 mg Q12HR STUART Administration Ceftriaxone Sodium 1 gm in 50 mls @ 100 mls/hr 03/09/25 22:00 03/09/25 20:44 Rocephin 1 Gm/Ns 50 Ml IVPB 100 mls/hr Q24H STUART Administration Azithromycin 500 mg in 250 mls @ 250 mls/hr 03/09/25 22:00 03/09/25 21:23 Zithromax IVPB 125 mls/hr Q24H STUART Administration Dextrose 1,000 mls @ 100 mls/hr 03/09/25 09:45 Dextrose 5% 1,000 Ml IVPB PRN PRN Hypoglycemia Protocol Insulin Aspart 2 - 5 units 03/09/25 12:00 03/10/25 07:48 Insulin Aspart (*Bkc) 100 Units/Ml SUB-Q Not Given TIDWM STUART Protocol Insulin Aspart 1 - 2 units 03/09/25 21:00 03/09/25 21:23 Insulin Aspart (*Bkc) 100 Units/Ml SUB-Q 1 units HS STUART Administration Protocol Loratadine 10 mg 03/09/25 09:00 03/10/25 08:21 Loratadine 10 Mg Tablet PO 10 mg QAM STUART Administration Losartan Potassium 50 mg 03/09/25 09:00 03/10/25 08:21 Losartan Potassium 50 Mg Tablet PO 50 mg BID STUART Administration Perflutren Lipid Microsphere 0 ml 03/09/25 09:44 Perflutren Lipid Microspheres 1.5 Ml Vial Diluted To 10 Ml Total Volume IV PUSH 03/12/25 09:44 ONCE PRN adequate visualization Protocol Rosuvastatin Calcium 20 mg 03/09/25 09:00 03/10/25 08:21 Rosuvastatin 20 Mg Tablet PO 20 mg DAILY STUART Administration Radiology Results: ITS Impressions Chest X-Ray 03/08/25 19:26 IMPRESSION: Possible right basilar atelectasis versus pneumonia. Cardiomegaly with congestive puma. Cardiac decompensation and pulmonary edema is not excluded. Clinical correlation advised. Chest/Abdomen/Pelvis CTA 03/08/25 22:49 IMPRESSION: CHEST: 1. No pulmonary embolism. 2. No acute cardiopulmonary pathology. 3. Possible nodule in the right middle lobe. 3 months follow-up CT is advised. ABDOMEN/PELVIS: 1. 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 2. No evidence of appendicitis, diverticulitis or intestinal obstruction. Labs Labs: Laboratory Results - last 24 hr 03/09/25 03/09/25 03/09/25 07:57 11:10 16:42 WBC RBC Hgb Hct MCV MCH MCHC RDW Plt Count MPV Immature Gran % (Auto) Neut % (Auto) Lymph % (Auto) [place] % (Auto) Eos % (Auto) Baso % (Auto) Lymph # (Auto) [place] # (Auto) Eos # (Auto) Baso # (Auto) Abs Immat Gran (auto) Absolute Neuts (auto) Absolute Nucleated RBC Nucleated RBC % Sodium Potassium Chloride Carbon Dioxide Anion Gap BUN Creatinine Estim Creat Clear Calc Estimated GFR Glucose POC Capillary Glucose 182 H 139 H Calcium Total Bilirubin AST ALT Alkaline Phosphatase Troponin I 0.176 H* Total Protein Albumin 03/09/25 03/10/25 03/10/25 20:49 05:48 07:28 WBC 10.6 H RBC 4.18 L Hgb 11.7 L Hct 37.9 L MCV 90.7 MCH 28.0 MCHC 30.9 L RDW 15.8 H Plt Count 216 MPV 9.7 Immature Gran % (Auto) 0.6 H Neut % (Auto) 74.5 H Lymph % (Auto) 12.7 L [place] % (Auto) 10.0 H Eos % (Auto) 1.8 Baso % (Auto) 0.4 Lymph # (Auto) 1.35 [place] # (Auto) 1.1 H Eos # (Auto) 0.2 Baso # (Auto) 0.0 Abs Immat Gran (auto) 0.06 H Absolute Neuts (auto) 7.9 H Absolute Nucleated RBC 0.000 Nucleated RBC % 0.0 Sodium 138 Potassium 3.8 Chloride 101 Carbon Dioxide 31 H Anion Gap 6 BUN 15 Creatinine 0.72 Estim Creat Clear Calc 97 Estimated GFR > 60 Glucose 103 POC Capillary Glucose 203 H 113 H Calcium 8.1 L Total Bilirubin 0.5 AST 55 ALT 48 Alkaline Phosphatase 79 Troponin I Total Protein 7.0 Albumin 3.5 Hospitalist [facility] Advance Care Plan I have confirmed that the patient's Advanced Care Plan is present, code status is documented, or surrogate decision maker is listed in patient medical record.: Yes Medication Reconciliation I have utilized all available resources to obtain, update and review the patients current medications (includes all prescriptions, OTC, herbals, cannabis, and nutritional supplements).: Yes
[2025-03-10] MEDS: FLUTICASONE/UMECLIDIN/VILANTER 100-62.5-25 MCG ELLIPTA 1 PUFF INHALATION (08:59)
[2025-03-10] MEDS: INSULIN ASPART (*BKC) 100 UNITS/ML SUB-Q ×2 (11:45→21:13)
[2025-03-10 11:50] LABS: Glucose Point of Care 377 mg/dl (65-105)
[2025-03-10 16:17] LABS: Glucose Point of Care 166 mg/dl (65-105)
[2025-03-10 20:18] LABS: Glucose Point of Care 215 mg/dl (65-105)
[2025-03-10] MEDS: AZITHROMYCIN 500 MG/NS 250 ML 500 MG/250 ML BAG 125 MG IVPB (22:01)
[2025-03-11] VITALS (14 sets, daily range): BP systolic 126–133; BP diastolic 58–78; PULSE 90–96; RESP 18–22; TEMP 36.8–37; O2SAT 98–100
[2025-03-11] MEDS: IPRATROPIUM 0.5 MG/ALBUTEROL SULFATE 2.5 MG AMPUL.NEB 3 ML INHALATION ×4 (01:29→22:50)
[2025-03-11] MEDS: gemfibroziL 600 MG TABLET PO ×2 (07:26→16:20)
[2025-03-11] MEDS: ASPIRIN 81 MG CHEWABLE TABLET PO (07:27)
[2025-03-11 07:33] LABS: Glucose Point of Care 144 mg/dl (65-105)
[2025-03-11] MEDS: FLUTICASONE/UMECLIDIN/VILANTER 100-62.5-25 MCG ELLIPTA 1 PUFF INHALATION (08:16)
[2025-03-11] MEDS: FUROSEMIDE 20 MG TABLET PO ×2 (08:27→16:20)
[2025-03-11] MEDS: LORATADINE 10 MG TABLET PO (08:27)
[2025-03-11] MEDS: guaiFENesin 12 HR 600 MG TABCR PO ×2 (08:27→21:36)
[2025-03-11] MEDS: LOSARTAN POTASSIUM 50 MG TABLET PO ×2 (08:27→16:20)
[2025-03-11] MEDS: ROSUVASTATIN 20 MG TABLET PO (08:27)
[2025-03-11] MEDS: ENOXAPARIN 40 MG/0.4 ML SYRINGE SUB-Q (08:28)
[2025-03-11 11:23] LABS: Glucose Point of Care 220 mg/dl (65-105)
[2025-03-11] MEDS: INSULIN ASPART (*BKC) 100 UNITS/ML SUB-Q ×2 (11:36→21:36)
[2025-03-11] MEDS: cefTRIAXone 2 GM/NS 100 ML 2 GM/100 ML BAG IVPB (12:24)
[2025-03-11 13:37] LABS: Basophils Percent Auto 0.3 % (0.2-1.2); Eosinophils Absolute Auto 0.3 K/mm3 (0-0.3); Eosinophils Percent Auto 4.5 % (0-4.4); Hematocrit 38.3 % (42.0-52.0); Hemoglobin 11.7 g/dL (14.0-18.0); Immature Granulocyte Absolute 0.03 K/mm3 (0.00-0.031); Immature Granulocyte Percent A 0.4 % (0-0.5); Lymphocytes Absolute Auto 1.04 K/mm3 (0.9-3.2); Lymphocytes Percent Auto 14.8 % (18.3-44.2); Mean Corpuscular HGB Conc 30.5 g/dl (32-36); Mean Corpuscular Hemoglobin 27.4 pg (26-34); Mean Corpuscular Volume 89.7 fl (80-100); Mean Platelet Volume 9.5 fl (7.4-10.4); Monocytes Absolute Auto 0.8 K/mm3 (0.1-0.6); Monocytes Percent Auto 11.5 % (2.6-8.5); Neutrophils Absolute Auto 4.8 K/mm3 (1.3-6.7); Neutrophils Percent Auto 68.5 % (45.5-73.1); Platelet Count Result 247 k/mm3 (150-375); Red Blood Count 4.27 M/mm3 (4.6-6.20); Red Cell Distribution Width 15.6 % (11.5-14.5)
--- NOTE | 2025-03-11 13:56 | P.PNIM_ITS ---
Progress Note: A&P Assessment and Plan (1) Hypertension: Qualifiers: Hypertension type: primary hypertension Qualified Code(s): I10 - Essential (primary) hypertension Code(s): I10 - Essential (primary) hypertension Status: Chronic (2) Elevated troponin: Code(s): R79.89 - Other specified abnormal findings of blood chemistry Status: Acute (3) Type 2 diabetes mellitus: Qualifiers: Diabetes mellitus ocean transportation intermediary insulin use: without ocean transportation intermediary use Diabetes mellitus complication status: with circulatory complication Diabetes mellitus complication detail: with peripheral angiopathy with gangrene Qualified Code(s): E11.52 - Type 2 diabetes mellitus with diabetic peripheral angiopathy with gangrene Code(s): E11.9 - Type 2 diabetes mellitus without complications Status: Acute (4) Diabetic peripheral angiopathy: Code(s): E11.51 - Type 2 diabetes mellitus with diabetic peripheral angiopathy without gangrene Status: Acute (5) Obesity: Qualifiers: Obesity type: due to excess calories Obesity classification: adult class 3 (BMI >= 40) Serious obesity comorbidity presence: with serious comorbidity Body mass index: BMI 45.0-49.9 Qualified Code(s): E66.01 - Morbid (severe) obesity due to excess calories; Z68.42 - Body mass index [BMI] 45.0- 49.9, adult Code(s): E66.9 - Obesity, unspecified Status: Acute (6) COPD (chronic obstructive pulmonary disease): Qualifiers: COPD type: chronic bronchitis Chronic bronchitis type: mucopurulent Qualified Code(s): J41.1 - Mucopurulent chronic bronchitis Code(s): J44.9 - Chronic obstructive pulmonary disease, unspecified Status: Acute Plan COPD Exacerbation Vital signs improved and stable Started on Ceftriaxone and azithromycin monitor cultures MRSA negative On 2 to 3 L nasal cannula encourage oral intake Non ST elevation [place] Cardiology believes due to underlying infection Cardiology wants to do OP stress test Trend troponin History of diabetes HB A1c 6.7 Previous smoker 2 PPD, quit 2004 Continue Rosuvastatin 20 mg, and aspirin 81 mg Heparin drip as per Cardiology recommendation and give sublingual nitro if needed Echocardiogram pending Denies any illicit drug use Reviewed EKG and CXR Continue furosemide, losartan Type 2 diabetes mellitus Hold glimepiride Hold metformin Low-dose Sliding scale, will titrate as needed HbA1c 6.7 Right lower extremity cellulitis Negative for DVT Increased ceftriaxone from 1 g to 2 g and added metronidazole find mg p.o. q. 8 hours Blood culture positive for group B Streptococcus Monitor vital Subjective Date/time seen: 03/11/25 13:56 Interval history: Patient reported of redness and jewel bearing maker his right lower extremity. Ordered lower extremity ultrasound which is negative for any DVT. Increased ceftriaxone from 1 g to 2 g and added metronidazole in his therapeutic regimen. Blood cult ure positive for group B Streptococcus Review of Systems Review of Systems: A 10 system review of systems was completed on the patient and is negative except for what is stated in the HPI. Nursing and ancillary documentation was reviewed. Exam Narrative: GENERAL: Well-appearing, well-nourished, and in no acute distress. HEAD: Normocephalic, atraumatic. EYES: PERRLA and EOMI. ENT: Nares clear, no rhinorrhea or epistaxis. Mucous membranes moist. NECK: Supple. CHEST: Clear to auscultation. No respiratory distress. HEART: Regular rate and rhythm. No murmur heard. Normal peripheral pulses. ABDOMEN: Soft, nontender, nondistended, normal active bowel sounds. EXTREMITIES: Normal range of motion. No edema. Below-knee amputation left lower extremity SKIN: Warm, dry, no rash. NEURO: No focal deficits. Alert and oriented x3. PSYCH: Normal mood and affect. Objective Data Vital Signs Vital Signs: Vital Signs - 24 hr 03/10/25 14:00 03/10/25 14:34 03/10/25 14:42 Temperature 98.0 F Pulse Rate 95 100 100 Respiratory Rate 20 18 18 Blood Pressure 132/78 Pulse Oximetry 100 Oxygen Delivery Oxygen Flow Rate 03/10/25 20:00 03/10/25 20:05 03/10/25 20:10 Temperature Pulse Rate 97 Respiratory Rate 18 Blood Pressure Pulse Oximetry 99 99 Oxygen Delivery Nasal Cannula Nasal Cannula Oxygen Flow Rate 4 4 03/10/25 20:13 03/10/25 21:07 03/10/25 22:21 Temperature 99.0 F Pulse Rate 100 95 Respiratory Rate 18 22 H Blood Pressure 140/77 Pulse Oximetry 99 99 Oxygen Delivery Autopap Oxygen Flow Rate 03/11/25 01:31 03/11/25 01:38 03/11/25 05:36 Temperature 98.6 F Pulse Rate 91 91 90 Respiratory Rate 18 18 20 Blood Pressure 126/58 L Pulse Oximetry 100 Oxygen Delivery Oxygen Flow Rate 03/11/25 08:18 03/11/25 08:18 03/11/25 08:29 Temperature Pulse Rate 92 96 Respiratory Rate 18 20 Blood Pressure Pulse Oximetry 99 Oxygen Delivery Nasal Cannula Oxygen Flow Rate 4 Intake/Output Intake/Output: Intake & Output 03/08/25 03/09/25 03/10/25 03/11/25 23:59 23:59 23:59 23:59 Intake Total 1300 3160 1730 2030 Output Total 350 2325 2200 Balance 1300 281 -595 -170 Meds/Results Medications: Active Medications Generic Name Dose Route Start Last Admin Trade Name Freq PRN Reason Stop Dose Admin Acetaminophen 650 mg 03/09/25 02:51 Acetaminophen 325 Mg Tablet PO Q4H PRN Mild Pain (1-3) or Fever Albuterol/Ipratropium 3 ml 03/09/25 08:00 03/11/25 08:18 Ipratropium 0.5 Mg/Albuterol Sulfate 2.5 Mg Ampul.Neb 3 Ml INHALATION Not Given Q6HRT STUART Aspirin 81 mg 03/09/25 08:00 03/11/25 07:27 Aspirin 81 Mg Chewable Tablet PO 81 mg DAILY@0800 STUART Administration Dextrose 12.5 gm 03/09/25 09:45 Dextrose 50% 25 Gm/50 Ml Syringe IV PUSH PRN PRN Hypoglycemia Protocol Enoxaparin Sodium 40 mg 03/10/25 09:00 03/11/25 08:28 Enoxaparin 40 Mg/0.4 Ml Syringe SUB-Q 40 mg DAILY STUART Administration Fluticasone/Umeclidinium/Vilanterol 1 puff 03/09/25 07:45 03/11/25 08:16 Fluticasone/Umeclidin/Vilanter 100-62.5-25 Mcg Ellipta INHALATION 1 puff Q24H STUART Administration Furosemide 20 mg 03/09/25 09:00 03/11/25 08:27 Furosemide 20 Mg Tablet PO 20 mg BID STUART Administration Gemfibrozil 600 mg 03/09/25 09:00 03/11/25 07:26 Gemfibrozil 600 Mg Tablet PO 600 mg BID STUART Administration Glucagon 1 mg 03/09/25 09:45 Glucagon For Inj 1 Mg Vial IM PRN PRN Hypoglycemia Protocol Glucose 15 gm 03/09/25 09:45 Glucose Oral Gel 15 Gm Of Glucse In 37.5 Gm Tube PO PRN PRN Hypoglycemia Protocol Guaifenesin 600 mg 03/09/25 09:00 03/11/25 08:27 Guaifenesin 12 Hr 600 Mg Tabcr PO 600 mg Q12HR STUART Administration Azithromycin 500 mg in 250 mls @ 250 mls/hr 03/09/25 22:00 03/10/25 22:01 Zithromax IVPB 125 mls/hr Q24H STUART Administration Dextrose 1,000 mls @ 100 mls/hr 03/09/25 09:45 Dextrose 5% 1,000 Ml IVPB PRN PRN Hypoglycemia Protocol Ceftriaxone Sodium 2 gm in 100 mls @ 200 mls/hr 03/11/25 11:55 03/11/25 12:24 Rocephin 2 Gm/Ns 100 Ml IVPB 200 mls/hr QAM STUART Administration Insulin Aspart 2 - 5 units 03/09/25 12:00 03/11/25 11:36 Insulin Aspart (*Bkc) 100 Units/Ml SUB-Q 2 units TIDWM STUART Administration Protocol Insulin Aspart 1 - 2 units 03/09/25 21:00 03/10/25 21:13 Insulin Aspart (*Bkc) 100 Units/Ml SUB-Q 1 units HS STUART Administration Protocol Loratadine 10 mg 03/09/25 09:00 03/11/25 08:27 Loratadine 10 Mg Tablet PO 10 mg QAM STUART Administration Losartan Potassium 50 mg 03/09/25 09:00 03/11/25 08:27 Losartan Potassium 50 Mg Tablet PO 50 mg BID STUART Administration Metronidazole 500 mg 03/11/25 14:00 Metronidazole 500 Mg Tablet PO Q8HR STUART Perflutren Lipid Microsphere 0 ml 03/09/25 09:44 Perflutren Lipid Microspheres 1.5 Ml Vial Diluted To 10 Ml Total Volume IV PUSH 03/12/25 09:44 ONCE PRN adequate visualization Protocol Rosuvastatin Calcium 20 mg 03/09/25 09:00 03/11/25 08:27 Rosuvastatin 20 Mg Tablet PO 20 mg DAILY STUART Administration Radiology Results: ITS Impressions Chest X-Ray 03/08/25 19:26 IMPRESSION: Possible right basilar atelectasis versus pneumonia. Cardiomegaly with congestive puma. Cardiac decompensation and pulmonary edema is not excluded. Clinical correlation advised. Chest/Abdomen/Pelvis CTA 03/08/25 22:49 IMPRESSION: CHEST: 1. No pulmonary embolism. 2. No acute cardiopulmonary pathology. 3. Possible nodule in the right middle lobe. 3 months follow-up CT is advised. ABDOMEN/PELVIS: 1. 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 2. No evidence of appendicitis, diverticulitis or intestinal obstruction. Venous Doppler Study 03/11/25 12:42 IMPRESSION: Negative right lower extremity venous US. No deep vein thrombosis. Labs Labs: Laboratory Results - last 24 hr 03/10/25 03/10/25 03/11/25 16:04 20:08 07:23 WBC RBC Hgb Hct MCV MCH MCHC RDW Plt Count MPV Immature Gran % (Auto) Neut % (Auto) Lymph % (Auto) [place] % (Auto) Eos % (Auto) Baso % (Auto) Lymph # (Auto) [place] # (Auto) Eos # (Auto) Baso # (Auto) Abs Immat Gran (auto) Absolute Neuts (auto) Absolute Nucleated RBC Nucleated RBC % POC Capillary Glucose 166 H 215 H 144 H 03/11/25 03/11/25 11:05 13:32 WBC 7.0 RBC 4.27 L Hgb 11.7 L Hct 38.3 L MCV 89.7 MCH 27.4 MCHC 30.5 L RDW 15.6 H Plt Count 247 MPV 9.5 Immature Gran % (Auto) 0.4 Neut % (Auto) 68.5 Lymph % (Auto) 14.8 L [place] % (Auto) 11.5 H Eos % (Auto) 4.5 H Baso % (Auto) 0.3 Lymph # (Auto) 1.04 [place] # (Auto) 0.8 H Eos # (Auto) 0.3 Baso # (Auto) 0.0 Abs Immat Gran (auto) 0.03 Absolute Neuts (auto) 4.8 Absolute Nucleated RBC 0.000 Nucleated RBC % 0.0 POC Capillary Glucose 220 H Hospitalist MIPS Advance Care Plan I have confirmed that the patient's Advanced Care Plan is present, code status is documented, or surrogate decision maker is listed in patient medical record.: Yes Medication Reconciliation I have utilized all available resources to obtain, update and review the patients current medications (includes all prescriptions, OTC, herbals, cannabis, and nutritional supplements).: Yes
[2025-03-11] MEDS: metroNIDAZOLE 500 MG TABLET PO ×2 (14:55→21:36)
[2025-03-11 16:37] LABS: Glucose Point of Care 156 mg/dl (65-105)
[2025-03-11 20:12] LABS: Glucose Point of Care 227 mg/dl (65-105)
[2025-03-11] MEDS: AZITHROMYCIN 500 MG/NS 250 ML 500 MG/250 ML BAG 125 MG IVPB (21:36)
[2025-03-12] VITALS (13 sets, daily range): BP systolic 139–152; BP diastolic 80–81; PULSE 77–97; RESP 18–22; TEMP 36.8–37.1; O2SAT 97–99
[2025-03-12] MEDS: metroNIDAZOLE 500 MG TABLET PO ×2 (05:02→13:58)
[2025-03-12 06:30] LABS: Hemoglobin 11.7 g/dL (14.0-18.0); Mean Corpuscular HGB Conc 30.8 g/dl (32-36); Mean Corpuscular Volume 90.9 fl (80-100); Mean Platelet Volume 9.4 fl (7.4-10.4); Platelet Count Result 261 k/mm3 (150-375); Red Blood Count 4.18 M/mm3 (4.6-6.20); Red Cell Distribution Width 15.5 % (11.5-14.5)
[2025-03-12 07:20] LABS: Glucose Point of Care 142 mg/dl (65-105)
[2025-03-12] MEDS: gemfibroziL 600 MG TABLET PO ×2 (07:26→16:42)
[2025-03-12] MEDS: IPRATROPIUM 0.5 MG/ALBUTEROL SULFATE 2.5 MG AMPUL.NEB 3 ML INHALATION ×3 (07:36→20:40)
[2025-03-12] MEDS: FLUTICASONE/UMECLIDIN/VILANTER 100-62.5-25 MCG ELLIPTA 1 PUFF INHALATION (07:37)
[2025-03-12 08:14] LABS: Alanine Aminotransferase 218 U/L (6-50); Albumin Level 3.4 g/dL (3.5-5.1); Alkaline Phosphatase 101 U/L (38-126); Anion Gap 5 mmol/L (4-12); Aspartate Amino Transferase 144 U/L (17-59); Bilirubin,Total 0.5 mg/dL (0.2-1.3); Blood Urea Nitrogen 17 mg/dL (9-20); Calcium 8.8 mg/dL (8.4-10.2); Carbon Dioxide 35 mmol/L (22-30); Chloride 97 mmol/L (98-107); Estimated CRCL calculation 88 ml/min; Estimated Glomerular Filt Rate > 60; Glucose 135 mg/dL (65-110); Sodium 137 mmol/L (137-145)
[2025-03-12] MEDS: guaiFENesin 12 HR 600 MG TABCR PO ×2 (09:18→20:52)
[2025-03-12] MEDS: ROSUVASTATIN 20 MG TABLET PO (09:18)
[2025-03-12] MEDS: ASPIRIN 81 MG CHEWABLE TABLET PO (09:18)
[2025-03-12] MEDS: LORATADINE 10 MG TABLET PO (09:18)
[2025-03-12] MEDS: ENOXAPARIN 40 MG/0.4 ML SYRINGE SUB-Q (09:19)
[2025-03-12] MEDS: FUROSEMIDE 20 MG TABLET PO ×2 (09:19→16:42)
[2025-03-12] MEDS: LOSARTAN POTASSIUM 50 MG TABLET PO ×2 (09:19→16:42)
[2025-03-12] MEDS: cefTRIAXone 2 GM/NS 100 ML 2 GM/100 ML BAG IVPB (09:19)
[2025-03-12 11:14] LABS: Glucose Point of Care 166 mg/dl (65-105)
--- NOTE | 2025-03-12 11:35 | P.CDI_ITS ---
CDI Query Clarification Request Sepsis has been documented by ER provider but not in progress notes, please clarify if ruled in or ruled out 03/08 by ER: Clinical Impression: Sepsis, Pneumonia, Leukocytosis h&p: Patient is currently admitted in the setting of sepsis possibly due to COPD exacerbation with with either bacterial or viral superimposed infection. No evidence of UTI, GI, or SHIPPING CLERK CRATING infection. 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 blood cultures: Group B Streptococcus isolated IV abx <Carmen Barnett RN - Last Filed: 03/12/25 11:39> Clarified Diagnosis Clarified Diagnosis: Ruled out <Kwasi Cavanaugh MD - Last Filed: 03/12/25 17:40>
[2025-03-12 16:25] LABS: Glucose Point of Care 201 mg/dl (65-105)
[2025-03-12] MEDS: DOXYCYCLINE HYCLATE 100 MG TABLET PO ×2 (16:42→20:52)
[2025-03-12] MEDS: INSULIN ASPART (*BKC) 100 UNITS/ML SUB-Q (16:42)
--- NOTE | 2025-03-12 17:40 | PM.IMPN ---
Progress Note: A&P Assessment and Plan (1) Hypertension: Qualifiers: Hypertension type: primary hypertension Qualified Code(s): I10 - Essential (primary) hypertension Code(s): I10 - Essential (primary) hypertension Status: Chronic (2) Elevated troponin: Code(s): R79.89 - Other specified abnormal findings of blood chemistry Status: Acute (3) Type 2 diabetes mellitus: Qualifiers: Diabetes mellitus terminal clerk insulin use: without terminal clerk use Diabetes mellitus complication status: with circulatory complication Diabetes mellitus complication detail: with peripheral angiopathy with gangrene Qualified Code(s): E11.52 - Type 2 diabetes mellitus with diabetic peripheral angiopathy with gangrene Code(s): E11.9 - Type 2 diabetes mellitus without complications Status: Acute (4) Diabetic peripheral angiopathy: Code(s): E11.51 - Type 2 diabetes mellitus with diabetic peripheral angiopathy without gangrene Status: Acute (5) Obesity: Qualifiers: Obesity type: due to excess calories Obesity classification: adult class 3 (BMI >= 40) Serious obesity comorbidity presence: with serious comorbidity Body mass index: BMI 45.0-49.9 Qualified Code(s): E66.01 - Morbid (severe) obesity due to excess calories; Z68.42 - Body mass index [BMI] 45.0-49.9, adult Code(s): E66.9 - Obesity, unspecified Status: Acute (6) COPD (chronic obstructive pulmonary disease): Qualifiers: COPD type: chronic bronchitis Chronic bronchitis type: mucopurulent Qualified Code(s): J41.1 - Mucopurulent chronic bronchitis Code(s): J44.9 - Chronic obstructive pulmonary disease, unspecified Status: Acute Plan COPD Exacerbation Vital signs improved and stable Started on Ceftriaxone and azithromycin monitor cultures MRSA negative On 2 to 3 L nasal cannula encourage oral intake Non ST elevation [place] [facility] believes due to underlying infection Cardiology wants to do OP stress test Trend troponin History of diabetes HB A1c 6.7 Previous smoker 2 PPD, quit 2004 Continue Rosuvastatin 20 mg, and aspirin 81 mg Heparin drip as per Cardiology recommendation and give sublingual nitro if needed Echocardiogram pending Denies any illicit drug use Reviewed EKG and CXR Continue furosemide, losartan Type 2 diabetes mellitus Hold glimepiride Hold metformin Low-dose Sliding scale, will titrate as needed HbA1c 6.7 Right lower extremity cellulitis Negative for DVT Increased ceftriaxone from 1 g to 2 g and doxycycline Blood culture positive for group B Streptococcus Monitor vital Subjective Date/time seen: 03/12/25 17:40 Interval history: 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 Lower extremity ultrasound which is negative for any DVT. Cont Ceftriaxone and doxycycline Review of Systems Review of Systems: A 10 system review of systems was completed on the patient and is negative except for what is stated in the HPI. Nursing and ancillary documentation was reviewed. Exam Narrative: GENERAL: Well-appearing, well-nourished, and in no acute distress. HEAD: Normocephalic, atraumatic. EYES: PERRLA and EOMI. ENT: Nares clear, no rhinorrhea or epistaxis. Mucous membranes moist. NECK: Supple. CHEST: Clear to auscultation. No respiratory distress. HEART: Regular rate and rhythm. No murmur heard. Normal peripheral pulses. ABDOMEN: Soft, nontender, nondistended, normal active bowel sounds. EXTREMITIES: Normal range of motion. No edema. Below-knee amputation left lower extremity SKIN: Warm, dry, no rash. NEURO: No focal deficits. Alert and oriented x3. PSYCH: Normal mood and affect. Objective Data Vital Signs Vital Signs: Vital Signs - 24 hr 03/11/25 20:00 03/11/25 21:03 03/11/25 21:19 Temperature 98.6 F Pulse Rate 90 Respiratory Rate 22 H Blood Pressure 132/70 Pulse Oximetry 99 99 99 Oxygen Delivery Nasal Cannula Nasal Cannula Oxygen Flow Rate 4 4 03/11/25 22:50 03/11/25 23:00 03/12/25 02:00 Temperature Pulse Rate 92 92 92 Respiratory Rate 20 20 20 Blood Pressure Pulse Oximetry Oxygen Delivery Oxygen Flow Rate 03/12/25 02:08 03/12/25 05:57 03/12/25 07:39 Temperature 98.8 F Pulse Rate 92 97 93 Respiratory Rate 20 20 20 Blood Pressure 139/80 Pulse Oximetry 97 98 Oxygen Delivery Nasal Cannula Oxygen Flow Rate 4 03/12/25 07:39 03/12/25 07:47 03/12/25 14:00 Temperature 98.2 F Pulse Rate 93 90 92 Respiratory Rate 20 20 18 Blood Pressure 152/80 H Pulse Oximetry 99 Oxygen Delivery Oxygen Flow Rate 03/12/25 14:03 03/12/25 14:03 03/12/25 14:12 Temperature Pulse Rate 92 93 90 Respiratory Rate 20 20 20 Blood Pressure Pulse Oximetry 97 Oxygen Delivery Nasal Cannula Oxygen Flow Rate 4 Intake/Output Intake/Output: Intake & Output 03/09/25 03/10/25 03/11/25 03/12/25 23:59 23:59 23:59 23:59 Intake Total 3160 1730 3460 3800 Output Total 350 2325 3600 3400 Balance 2810 -595 -140 400 Meds/Results Medications: Active Medications Generic Name Dose Route Start Last Admin Trade Name Freq PRN Reason Stop Dose Admin Acetaminophen 650 mg 03/09/25 02:51 Acetaminophen 325 Mg Tablet PO Q4H PRN Mild Pain (1-3) or Fever Albuterol/Ipratropium 3 ml 03/09/25 08:00 03/12/25 14:02 Ipratropium 0.5 Mg/Albuterol Sulfate 2.5 Mg Ampul.Neb 3 Ml INHALATION 3 ml Q6HRT STUART Administration Aspirin 81 mg 03/09/25 08:00 03/12/25 09:18 Aspirin 81 Mg Chewable Tablet PO 81 mg DAILY@0800 STUART Administration Dextrose 12.5 gm 03/09/25 09:45 Dextrose 50% 25 Gm/50 Ml Syringe IV PUSH PRN PRN Hypoglycemia Protocol Doxycycline Hyclate 100 mg 03/12/25 14:25 03/12/25 16:42 Doxycycline Hyclate 100 Mg Tablet PO 03/16/25 21:01 100 mg Q12HR STUART Administration Enoxaparin Sodium 40 mg 03/10/25 09:00 03/12/25 09:19 Enoxaparin 40 Mg/0.4 Ml Syringe SUB-Q 40 mg DAILY STUART Administration Fluticasone/Umeclidinium/Vilanterol 1 puff 03/09/25 07:45 03/12/25 07:37 Fluticasone/Umeclidin/Vilanter 100-62.5-25 Mcg Ellipta INHALATION 1 puff Q24H STUART Administration Furosemide 20 mg 03/09/25 09:00 03/12/25 16:42 Furosemide 20 Mg Tablet PO 20 mg BID STUART Administration Gemfibrozil 600 mg 03/09/25 09:00 03/12/25 16:42 Gemfibrozil 600 Mg Tablet PO 600 mg BID STUART Administration Glucagon 1 mg 03/09/25 09:45 Glucagon For Inj 1 Mg Vial IM PRN PRN Hypoglycemia Protocol Glucose 15 gm 03/09/25 09:45 Glucose Oral Gel 15 Gm Of Glucse In 37.5 Gm Tube PO PRN PRN Hypoglycemia Protocol Guaifenesin 600 mg 03/09/25 09:00 03/12/25 09:18 Guaifenesin 12 Hr 600 Mg Tabcr PO 600 mg Q12HR STUART Administration Dextrose 1,000 mls @ 100 mls/hr 03/09/25 09:45 Dextrose 5% 1,000 Ml IVPB PRN PRN Hypoglycemia Protocol Ceftriaxone Sodium 2 gm in 100 mls @ 200 mls/hr 03/11/25 11:55 03/12/25 09:19 Rocephin 2 Gm/Ns 100 Ml IVPB 200 mls/hr QAM STUART Administration Insulin Aspart 2 - 5 units 03/09/25 12:00 03/12/25 16:42 Insulin Aspart (*Bkc) 100 Units/Ml SUB-Q 2 units TIDWM STUART Administration Protocol Insulin Aspart 1 - 2 units 03/09/25 21:00 03/11/25 21:36 Insulin Aspart (*Bkc) 100 Units/Ml SUB-Q 1 units HS STUART Administration Protocol Loratadine 10 mg 03/09/25 09:00 03/12/25 09:18 Loratadine 10 Mg Tablet PO 10 mg QAM TSUART Administration Losartan Potassium 50 mg 03/09/25 09:00 03/12/25 16:42 Losartan Potassium 50 Mg Tablet PO 50 mg BID STUART Administration Rosuvastatin Calcium 20 mg 03/09/25 09:00 03/12/25 09:18 Rosuvastatin 20 Mg Tablet PO 20 mg DAILY STUART Administration Radiology Results: ITS Impressions Chest X-Ray 03/08/25 19:26 IMPRESSION: Possible right basilar atelectasis versus pneumonia. Cardiomegaly with congestive puma. Cardiac decompensation and pulmonary edema is not excluded. Clinical correlation advised. Chest/Abdomen/Pelvis CTA 03/08/25 22:49 IMPRESSION: CHEST: 1. No pulmonary embolism. 2. No acute cardiopulmonary pathology. 3. Possible nodule in the right middle lobe. 3 months follow-up CT is advised. ABDOMEN/PELVIS: 1. 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 2. No evidence of appendicitis, diverticulitis or intestinal obstruction. Venous Doppler Study 03/11/25 12:42 IMPRESSION: Negative right lower extremity venous US. No deep vein thrombosis. Labs Labs: Laboratory Results - last 24 hr 03/11/25 03/12/25 03/12/25 19:50 06:25 07:14 WBC 7.0 RBC 4.18 L Hgb 11.7 L Hct 38.0 L MCV 90.9 MCH 28.0 MCHC 30.8 L RDW 15.5 H Plt Count 261 MPV 9.4 Sodium 137 Potassium 4.0 Chloride 97 L Carbon Dioxide 35 H Anion Gap 5 BUN 17 Creatinine 0.75 Estim Creat Clear Calc 88 Estimated GFR > 60 Glucose 135 H POC Capillary Glucose 227 H 142 H Calcium 8.8 Total Bilirubin 0.5 AST 144 H ALT 218 H Alkaline Phosphatase 101 Total Protein 6.0 L Albumin 3.4 L 03/12/25 03/12/25 11:08 16:15 WBC RBC Hgb Hct MCV MCH MCHC RDW Plt Count MPV Sodium Potassium Chloride Carbon Dioxide Anion Gap BUN Creatinine Estim Creat Clear Calc Estimated GFR Glucose POC Capillary Glucose 166 H 201 H Calcium Total Bilirubin AST ALT Alkaline Phosphatase Total Protein Albumin Hospitalist MIPS Advance Care Plan I have confirmed that the patient's Advanced Care Plan is present, code status is documented, or surrogate decision maker is listed in patient medical record.: Yes Medication Reconciliation I have utilized all available resources to obtain, update and review the patients current medications (includes all prescriptions, OTC, herbals, cannabis, and nutritional supplements).: Yes
[2025-03-12 20:42] LABS: Glucose Point of Care 163 mg/dl (65-105)
[2025-03-13] VITALS (13 sets, daily range): BP systolic 120–145; BP diastolic 63–73; PULSE 78–103; RESP 16–20; TEMP 36.3–36.6; O2SAT 96–100
[2025-03-13] MEDS: IPRATROPIUM 0.5 MG/ALBUTEROL SULFATE 2.5 MG AMPUL.NEB 3 ML INHALATION ×4 (01:38→20:32)
[2025-03-13] MEDS: BENZOCAINE/MENTHOL (*BKC) 18 EA LOZENGE 1 LOZENGE PO (02:24)
[2025-03-13 07:35] LABS: Glucose Point of Care 154 mg/dl (65-105)
[2025-03-13] MEDS: ASPIRIN 81 MG CHEWABLE TABLET PO (07:56)
[2025-03-13] MEDS: LORATADINE 10 MG TABLET PO (07:56)
[2025-03-13] MEDS: DOXYCYCLINE HYCLATE 100 MG TABLET PO ×2 (07:56→21:00)
[2025-03-13] MEDS: LOSARTAN POTASSIUM 50 MG TABLET PO ×2 (07:56→16:51)
[2025-03-13] MEDS: ROSUVASTATIN 20 MG TABLET PO (07:56)
[2025-03-13] MEDS: FUROSEMIDE 20 MG TABLET PO (07:56)
[2025-03-13] MEDS: ENOXAPARIN 40 MG/0.4 ML SYRINGE SUB-Q (07:56)
[2025-03-13] MEDS: guaiFENesin 12 HR 600 MG TABCR PO ×2 (07:56→21:00)
[2025-03-13] MEDS: gemfibroziL 600 MG TABLET PO ×2 (07:57→16:51)
[2025-03-13] MEDS: cefTRIAXone 2 GM/NS 100 ML 2 GM/100 ML BAG IVPB (07:57)
[2025-03-13] MEDS: FLUTICASONE/UMECLIDIN/VILANTER 100-62.5-25 MCG ELLIPTA 1 PUFF INHALATION (08:03)
[2025-03-13 11:52] LABS: Glucose Point of Care 204 mg/dl (65-105)
[2025-03-13] MEDS: INSULIN ASPART (*BKC) 100 UNITS/ML SUB-Q (12:03)
[2025-03-13] MEDS: FUROSEMIDE INJ 40 MG/4 ML VIAL IV PUSH ×2 (12:48→16:51)
--- NOTE | 2025-03-13 16:44 | PM.IMPN ---
Progress Note: A&P Assessment and Plan (1) Hypertension: Qualifiers: Hypertension type: primary hypertension Qualified Code(s): I10 - Essential (primary) hypertension Code(s): I10 - Essential (primary) hypertension Status: Chronic (2) Elevated troponin: Code(s): R79.89 - Other specified abnormal findings of blood chemistry Status: Acute (3) Type 2 diabetes mellitus: Qualifiers: Diabetes mellitus termite inspector insulin use: without termite inspector use Diabetes mellitus complication status: with circulatory complication Diabetes mellitus complication detail: with peripheral angiopathy with gangrene Qualified Code(s): E11.52 - Type 2 diabetes mellitus with diabetic peripheral angiopathy with gangrene Code(s): E11.9 - Type 2 diabetes mellitus without complications Status: Acute (4) Diabetic peripheral angiopathy: Code(s): E11.51 - Type 2 diabetes mellitus with diabetic peripheral angiopathy without gangrene Status: Acute (5) Obesity: Qualifiers: Obesity type: due to excess calories Obesity classification: adult class 3 (BMI >= 40) Serious obesity comorbidity presence: with serious comorbidity Body mass index: BMI 45.0-49.9 Qualified Code(s): E66.01 - Morbid (severe) obesity due to excess calories; Z68.42 - Body mass index [BMI] 45.0-49.9, adult Code(s): E66.9 - Obesity, unspecified Status: Acute (6) COPD (chronic obstructive pulmonary disease): Qualifiers: COPD type: chronic bronchitis Chronic bronchitis type: mucopurulent Qualified Code(s): J41.1 - Mucopurulent chronic bronchitis Code(s): J44.9 - Chronic obstructive pulmonary disease, unspecified Status: Acute Plan COPD Exacerbation Vital signs improved and stable Started on Ceftriaxone and azithromycin monitor cultures MRSA negative On 2 to 3 L nasal cannula, 4 liters at baseline encourage oral intake Elevated troponin Cardiology noted this is demand ischemia from infection ECHO showed grade I diastolic dysfunction no regional wall motion abnormalities Outpatient stress test Continue Aspirin, Crestor and Type 2 diabetes mellitus Hold glimepiride Hold metformin Low-dose Sliding scale, will titrate as needed HbA1c 6.7 Right lower extremity cellulitis Negative for DVT Increased ceftriaxone from 1 g to 2 g and doxycycline Blood culture positive for group B Streptococcus Monitor vital Possible CHF exacerbation ECHO showed grade I diastolic dysfunction With RLE edema increase Lasix to 40mg IV bid and monitor DVT prophylaxis on Sq Lovenox Subjective Date/time seen: 03/13/25 16:44 Interval history: Erythema improving, however appears to be having worsening leg edema increased Lasix to 40mg bid Review of Systems Review of Systems: A 10 system review of systems was completed on the patient and is negative except for what is stated in the HPI. Nursing and ancillary documentation was reviewed. Exam Narrative: GENERAL: Well-appearing, well-nourished, and in no acute distress. HEAD: Normocephalic, atraumatic. EYES: PERRLA and EOMI. ENT: Nares clear, no rhinorrhea or epistaxis. Mucous membranes moist. NECK: Supple. CHEST: Clear to auscultation. No respiratory distress. HEART: Regular rate and rhythm. No murmur heard. Normal peripheral pulses. ABDOMEN: Soft, nontender, nondistended, normal active bowel sounds. EXTREMITIES: Normal range of motion. No edema. Below-knee amputation left lower extremity SKIN: Warm, dry, no rash. NEURO: No focal deficits. Alert and oriented x3. PSYCH: Normal mood and affect. Objective Data Vital Signs Vital Signs: Vital Signs - 24 hr 03/12/25 20:00 03/12/25 20:40 03/12/25 20:40 Temperature Pulse Rate 92 Respiratory Rate 20 Blood Pressure Pulse Oximetry 99 98 Oxygen Delivery Nasal Cannula Nasal Cannula Oxygen Flow Rate 4 4 Fraction of Inspired Oxygen 36 36 03/12/25 20:50 03/12/25 21:14 03/13/25 01:38 Temperature 98.3 F Pulse Rate 90 77 85 Respiratory Rate 20 22 H 16 Blood Pressure 139/81 Pulse Oximetry 99 Oxygen Delivery Oxygen Flow Rate Fraction of Inspired Oxygen 03/13/25 01:46 03/13/25 05:35 03/13/25 07:54 Temperature 97.5 F L Pulse Rate 84 93 82 Respiratory Rate 16 20 Blood Pressure 120/63 136/73 Pulse Oximetry 99 100 Oxygen Delivery Oxygen Flow Rate Fraction of Inspired Oxygen 03/13/25 08:00 03/13/25 08:04 03/13/25 08:04 Temperature Pulse Rate 85 Respiratory Rate 20 Blood Pressure Pulse Oximetry 100 96 Oxygen Delivery Nasal Cannula Nasal Cannula Oxygen Flow Rate 4 4 Fraction of Inspired Oxygen 03/13/25 08:12 03/13/25 14:00 03/13/25 14:04 Temperature 98 F Pulse Rate 78 103 H 89 Respiratory Rate 20 16 20 Blood Pressure 130/73 Pulse Oximetry 100 Oxygen Delivery Oxygen Flow Rate Fraction of Inspired Oxygen 03/13/25 14:16 Temperature Pulse Rate 88 Respiratory Rate 20 Blood Pressure Pulse Oximetry Oxygen Delivery Oxygen Flow Rate Fraction of Inspired Oxygen Intake/Output Intake/Output: Intake & Output 03/10/25 03/11/25 03/12/25 03/13/25 23:59 23:59 23:59 23:59 Intake Total 1730 3460 4380 1598 Output Total 2325 3600 3750 2950 Balance -595 -140 128 -3862 Meds/Results Medications: Active Medications Generic Name Dose Route Start Last Admin Trade Name Freq PRN Reason Stop Dose Admin Acetaminophen 650 mg 03/09/25 02:51 Acetaminophen 325 Mg Tablet PO Q4H PRN Mild Pain (1-3) or Fever Albuterol/Ipratropium 3 ml 03/09/25 08:00 03/13/25 14:04 Ipratropium 0.5 Mg/Albuterol Sulfate 2.5 Mg Ampul.Neb 3 Ml INHALATION 3 ml Q6HRT STUART Administration Amoxicillin/Clavulanate Potassium 1 tablet 03/14/25 06:00 Amoxicillin/Clavulanate K 875-125 Mg Tab PO 03/24/25 23:59 Q8HR STUART Aspirin 81 mg 03/09/25 08:00 03/13/25 07:56 Aspirin 81 Mg Chewable Tablet PO 81 mg DAILY@0800 STUART Administration Benzocaine 1 lozenge 03/12/25 20:43 03/13/25 02:24 Benzocaine/Menthol (*Bkc) 18 Ea Lozenge PO 1 lozenge PRN PRN Administration Sore Throat Dextrose 12.5 gm 03/09/25 09:45 Dextrose 50% 25 Gm/50 Ml Syringe IV PUSH PRN PRN Hypoglycemia Protocol Doxycycline Hyclate 100 mg 03/12/25 14:25 03/13/25 07:56 Doxycycline Hyclate 100 Mg Tablet PO 03/16/25 21:01 100 mg Q12HR STUART Administration Enoxaparin Sodium 40 mg 03/10/25 09:00 03/13/25 07:56 Enoxaparin 40 Mg/0.4 Ml Syringe SUB-Q 40 mg DAILY STUART Administration Fluticasone/Umeclidinium/Vilanterol 1 puff 03/09/25 07:45 03/13/25 08:03 Fluticasone/Umeclidin/Vilanter 100-62.5-25 Mcg Ellipta INHALATION 1 puff Q24H STUART Administration Furosemide 20 mg 03/09/25 09:00 03/13/25 07:56 Furosemide 20 Mg Tablet PO 20 mg BID STUART Administration Furosemide 40 mg 03/13/25 12:35 03/13/25 12:48 Furosemide Inj 40 Mg/4 Ml Vial IV PUSH 40 mg BID STUART Administration Gemfibrozil 600 mg 03/09/25 09:00 03/13/25 07:57 Gemfibrozil 600 Mg Tablet PO 600 mg BID STUART Administration Glucagon 1 mg 03/09/25 09:45 Glucagon For Inj 1 Mg Vial IM PRN PRN Hypoglycemia Protocol Glucose 15 gm 03/09/25 09:45 Glucose Oral Gel 15 Gm Of Glucse In 37.5 Gm Tube PO PRN PRN Hypoglycemia Protocol Guaifenesin 600 mg 03/09/25 09:00 03/13/25 07:56 Guaifenesin 12 Hr 600 Mg Tabcr PO 600 mg Q12HR STUART Administration Dextrose 1,000 mls @ 100 mls/hr 03/09/25 09:45 Dextrose 5% 1,000 Ml IVPB PRN PRN Hypoglycemia Protocol Insulin Aspart 2 - 5 units 03/09/25 12:00 03/13/25 12:03 Insulin Aspart (*Bkc) 100 Units/Ml SUB-Q 2 units TIDWM STUART Administration Protocol Insulin Aspart 1 - 2 units 03/09/25 21:00 03/12/25 20:52 Insulin Aspart (*Bkc) 100 Units/Ml SUB-Q Not Given HS STUART Protocol Loratadine 10 mg 03/09/25 09:00 03/13/25 07:56 Loratadine 10 Mg Tablet PO 10 mg QAM STUART Administration Losartan Potassium 50 mg 03/09/25 09:00 03/13/25 07:56 Losartan Potassium 50 Mg Tablet PO 50 mg BID STUART Administration Rosuvastatin Calcium 20 mg 03/09/25 09:00 03/13/25 07:56 Rosuvastatin 20 Mg Tablet PO 20 mg DAILY STUART Administration Radiology Results: ITS Impressions Chest X-Ray 03/08/25 19:26 IMPRESSION: Possible right basilar atelectasis versus pneumonia. Cardiomegaly with congestive puma. Cardiac decompensation and pulmonary edema is not excluded. Clinical correlation advised. Chest/Abdomen/Pelvis CTA 03/08/25 22:49 IMPRESSION: CHEST: 1. No pulmonary embolism. 2. No acute cardiopulmonary pathology. 3. Possible nodule in the right middle lobe. 3 months follow-up CT is advised. ABDOMEN/PELVIS: 1. 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 2. No evidence of appendicitis, diverticulitis or intestinal obstruction. Venous Doppler Study 03/11/25 12:42 IMPRESSION: Negative right lower extremity venous US. No deep vein thrombosis. Labs Labs: Laboratory Results - last 24 hr 03/12/25 03/13/25 03/13/25 20:25 07:21 11:49 POC Capillary Glucose 163 H 154 H 204 H
[2025-03-13 16:48] LABS: Glucose Point of Care 194 mg/dl (65-105)
[2025-03-13 20:16] LABS: Glucose Point of Care 200 mg/dl (65-105)
[2025-03-14] VITALS (8 sets, daily range): BP systolic 103–131; BP diastolic 56–62; PULSE 74–99; RESP 16–20; TEMP 36.2; O2SAT 98–100
--- NOTE | 2025-03-14 00:36 | PCRCNOTE ---
2240: Patient seen this pm for placement on hospital [facility] for CPAP; he states that he had received Lasix and was voiding frequently and could not wear it at this time
[2025-03-14] MEDS: BENZOCAINE/MENTHOL (*BKC) 18 EA LOZENGE 1 LOZENGE PO (01:10)
[2025-03-14] MEDS: IPRATROPIUM 0.5 MG/ALBUTEROL SULFATE 2.5 MG AMPUL.NEB 3 ML INHALATION ×3 (02:02→13:53)
[2025-03-14 05:58] LABS: Basophils Absolute Auto 0.1 K/mm3 (0.0-0.1); Basophils Percent Auto 0.5 % (0.2-1.2); Eosinophils Absolute Auto 0.4 K/mm3 (0-0.3); Eosinophils Percent Auto 4.2 % (0-4.4); Hematocrit 39.5 % (42.0-52.0); Immature Granulocyte Absolute 0.06 K/mm3 (0.00-0.031); Immature Granulocyte Percent A 0.7 % (0-0.5); Lymphocytes Percent Auto 15.2 % (18.3-44.2); Mean Corpuscular HGB Conc 30.4 g/dl (32-36); Mean Corpuscular Hemoglobin 27.6 pg (26-34); Mean Corpuscular Volume 90.8 fl (80-100); Mean Platelet Volume 9.8 fl (7.4-10.4); Monocytes Absolute Auto 0.9 K/mm3 (0.1-0.6); Monocytes Percent Auto 9.4 % (2.6-8.5); Neutrophils Absolute Auto 6.5 K/mm3 (1.3-6.7); Platelet Count Result 300 k/mm3 (150-375); Red Blood Count 4.35 M/mm3 (4.6-6.20); Red Cell Distribution Width 14.9 % (11.5-14.5); White Blood Count 9.2 K/mm3 (4.5-10.0)
[2025-03-14] MEDS: AMOXICILLIN/CLAVULANATE K 875-125 MG TAB 1 TABLET PO ×2 (06:02→14:44)
[2025-03-14 06:10] LABS: Alanine Aminotransferase 156 U/L (6-50); Albumin Level 3.7 g/dL (3.5-5.1); Alkaline Phosphatase 103 U/L (38-126); Anion Gap 4 mmol/L (4-12); Aspartate Amino Transferase 74 U/L (17-59); Bilirubin,Total 0.6 mg/dL (0.2-1.3); Blood Urea Nitrogen 24 mg/dL (9-20); Carbon Dioxide 38 mmol/L (22-30); Chloride 93 mmol/L (98-107); Estimated CRCL calculation 69 ml/min; Estimated Glomerular Filt Rate > 60; Glucose 147 mg/dL (65-110); Magnesium 1.8 mg/dL (1.6-2.3); Potassium 3.7 mmol/L (3.4-5.0); Sodium 135 mmol/L (137-145)
[2025-03-14] MEDS: FLUTICASONE/UMECLIDIN/VILANTER 100-62.5-25 MCG ELLIPTA 1 PUFF INHALATION (07:46)
[2025-03-14 08:01] LABS: Glucose Point of Care 147 mg/dl (65-105)
[2025-03-14] MEDS: LORATADINE 10 MG TABLET PO (08:49)
[2025-03-14] MEDS: ROSUVASTATIN 20 MG TABLET PO (08:49)
[2025-03-14] MEDS: ASPIRIN 81 MG CHEWABLE TABLET PO (08:49)
[2025-03-14] MEDS: DOXYCYCLINE HYCLATE 100 MG TABLET PO (08:49)
[2025-03-14] MEDS: gemfibroziL 600 MG TABLET PO (08:49)
[2025-03-14] MEDS: LOSARTAN POTASSIUM 50 MG TABLET PO (08:49)
[2025-03-14] MEDS: ENOXAPARIN 40 MG/0.4 ML SYRINGE SUB-Q (08:49)
[2025-03-14] MEDS: guaiFENesin 12 HR 600 MG TABCR PO (08:49)
[2025-03-14] MEDS: FUROSEMIDE INJ 40 MG/4 ML VIAL IV PUSH (08:50)
[2025-03-14 11:55] LABS: Glucose Point of Care 191 mg/dl (65-105)
--- NOTE | 2025-03-14 12:13 | PM.DS ---
DS: Admitting Diagnosis Discharge Date 03/14/25 Admitting Diagnosis Weakness DS: Discharge Diagnosis Discharge Diagnosis (1) Cellulitis of left lower leg: Code(s): L03.116 - Cellulitis of left lower limb Status: Acute DS: Summary Hospital Course Hospital Course: This is a pleasant 75-year-old male with a past medical history of hypertension, MRSA infection, GERD, COPD with oxygen dependent 2 to 3 L, thrombitis obliterans, so reassess, obstructive sleep apnea, hyperlipidemia and type 2 diabetes mellitus visited ER due to weakness, fever and progressive right leg redness and swelling. CTA chest showed large aneurysmal dilation of the aorta and left iliac arteries otherwise no acute findings, Venous doppler negative. Patient was managed for Cellulitis with Rocephin and Doxycycline. Blood culture positive for groub B strept. Today patient was discharged on 10 more days of Augmentin and Doxycycline Also manageg for CHF exacerbation, noted worsening leg swelling with Right lower leg edema on exam WAs given 40mg IV lasix with marked improvement of the edema. ECHo showed grade I diastolic increased home lasix to 40mg bid Both erythema and swelling are markedly improved. F/u with PCP in 3-5 days Time Spent with Patient Time attestation: Total time spent providing and/or coordinating discharge services: DS: Data Data Completed and Pending Labs on day of discharge: Labs from last 24 hours 03/14/25 03/14/25 03/14/25 11:50 07:34 05:37 WBC 9.2 RBC 4.35 L Hgb 12.0 L Hct 39.5 L MCV 90.8 MCH 27.6 MCHC 30.4 L RDW 14.9 H Plt Count 300 MPV 9.8 Immature Gran % (Auto) 0.7 H Neut % (Auto) 70.0 Lymph % (Auto) 15.2 L Calloway % (Auto) 9.4 H Eos % (Auto) 4.2 Baso % (Auto) 0.5 Lymph # (Auto) 1.40 Calloway # (Auto) 0.9 H Eos # (Auto) 0.4 H Baso # (Auto) 0.1 Abs Immat Gran (auto) 0.06 H Absolute Neuts (auto) 6.5 Absolute Nucleated RBC 0.000 Nucleated RBC % 0.0 Sodium 135 L Potassium 3.7 Chloride 93 L Carbon Dioxide 38 H Anion Gap 4 BUN 24 H Creatinine 0.99 Estim Creat Clear Calc 69 Estimated GFR > 60 Glucose 147 H POC Capillary Glucose 191 H 147 H Calcium 9.0 Magnesium 1.8 Total Bilirubin 0.6 AST 74 H ALT 156 H Alkaline Phosphatase 103 Total Protein 7.0 Albumin 3.7 03/13/25 03/13/25 20:14 16:44 WBC RBC Hgb Hct MCV MCH MCHC RDW Plt Count MPV Immature Gran % (Auto) Neut % (Auto) Lymph % (Auto) Calloway % (Auto) Eos % (Auto) Baso % (Auto) Lymph # (Auto) Calloway # (Auto) Eos # (Auto) Baso # (Auto) Abs Immat Gran (auto) Absolute Neuts (auto) Absolute Nucleated RBC Nucleated RBC % Sodium Potassium Chloride Carbon Dioxide Anion Gap BUN Creatinine Estim Creat Clear Calc Estimated GFR Glucose POC Capillary Glucose 200 H 194 H Calcium Magnesium Total Bilirubin AST ALT Alkaline Phosphatase Total Protein Albumin Preliminary micro results at discharge 03/08/25 19:47 Blood Culture - Preliminary Blood Group B Streptococcus isolated Discharge Plan Discharge Attending physician on discharge: Su Henderson Consulting providers: Freddie Monsalve Discharging Clinician: Su Henderson Anticipated Discharge Date/Time: 03/14/25 12:05 Patient Disposition: Home Activity: as tolerated Diet: as tolerated Patient Instructions: Antibiotic Form, Doxycycline (By mouth), Sepsis (GEN), Leukocytosis (GEN), Pneumonia (GEN) Patient Language: Icelandic Stand Alone Forms: General Discharge Information Follow-up/Referrals: Freddie Monsalve MD [Physician] - 3 Weeks Yong Bui DO [Primary Care Provider] - (F/u with PCP in 3-5 days ) Discharge Medications: New amoxicillin-pot clavulanate 875-125 mg tablet 1 tablet PO Q12H 10 Days Qty: 20 0RF doxycycline hyclate 100 mg tablet 100 mg PO DAILY 10 Days Qty: 10 0RF Continued glimepiride 2 mg tablet 2 mg PO QAM Qty: 90 1RF losartan 50 mg tablet 50 mg PO BID Qty: 180 1RF metformin 500 mg tablet 500 mg PO BID Qty: 180 1RF rosuvastatin [Crestor] 20 mg tablet 20 mg PO DAILY Qty: 90 1RF aspirin 81 mg capsule 81 mg PO DAILY (DME) inhalational spacing device Spacer See Rx Instructions .ROUTE .MEDSUPPLY Qty: 1 0RF Rx Instructions: As directed guaifenesin [Mucus Relief ER] 600 mg Tablet Extended Release 12hr 600 mg PO Q12HR Qty: 30 0RF loratadine 10 mg Tablet 10 mg PO QAM Qty: 30 0RF (DME) 2 Knee selves, 4- 5 ply socks, 4- 3 ply socks, 4- Anti-microbial socks See Rx Instructions .Route .MEDSUPPLY Qty: 1 0RF Rx Instructions: As directed Trelegy Ellipta 100-62.5-25 mcg blister with device 1 inh inhalation Q24H Qty: 60 5RF Rx Instructions: rinse and spit gemfibrozil 600 mg tablet 600 mg PO BID Qty: 180 1RF Changed furosemide 20 mg tablet 40 mg PO BID Qty: 180 1RF Rx Instructions: MORNING AND MID AFTERNOON Date of admission: 03/09/25 09:08 Primary Care Provider: Yong Bui Admitting Provider: Bhavin Machado Attending physician on admission: Su Henderson Condition: Stable
--- NOTE | 2025-03-15 07:33 | P.CDI_ITS ---
CDI Query Clarification Request Please specify type and acuity of heart failure if known, CHF was documented on 03/13, Please clarify if CHF was present on admission. * Acute * Chronic * Acute on Chronic * Unknown * Systolic * Diastolic * Combined Systolic and Diastolic * Unknown The medical chart reflects the following: ER documented: Clinical Impression: Sepsis, Pneumonia, Leukocytosis H&P 03/09: Plan COPD Exacerbation Vital signs improved and stable Started on Ceftriaxone and azithromycin monitor cultures MRSA negative On 2 to 3 L nasal cannula encourage oral intake Non ST elevation [place] Trend troponin History of diabetes HB A1c 6.7 Previous smoker 2 PPD, quit 2004 Continue Rosuvastatin 20 mg, and aspirin 81 mg Heparin drip as per Cardiology recommendation and give sublingual nitro if needed Echocardiogram pending Denies any illicit drug use Reviewed EKG and CXR Continue furosemide, losartan Type 2 diabetes mellitus Hold glimepiride Hold metformin Low-dose Sliding scale, will titrate as needed HbA1c 6.7 03/13: Possible CHF exacerbation ECHO showed grade I diastolic dysfunction With RLE edema increase Lasix to 40mg IV bid and monitor d/c summary: Also manageg for CHF exacerbation, noted worsening leg swelling with Right lower leg edema on exam WAs given 40mg IV lasix with marked improvement of the edema. ECHo showed grade I diastolic increased home lasix to 40mg bid 03/08 BNP: 189 IV lasix <Carmen Barnett RN - Last Filed: 03/15/25 07:40> Clarified Diagnosis Clarified Diagnosis: * Acute on Chronic diastolic CHF <Su Henderson MD - Last Filed: 03/15/25 08:05>
== END 2025-03-14 15:05 | disposition home or self-care (01) | DRG 602 ==
LOC: ANHED 03-09 02:53 → ANHIMU 03-09 04:50 → ANH3MEDSUR 03-09 18:12
PROVIDERS: General Practice; Student in an Organized Health Care Education/Training Program; Admitting Provider Internal Medicine; Emergency Provider Emergency Medicine; PCP Internal Medicine; Visit Provider Internal Medicine
DX: L03.115 Cellulitis of right lower limb (principal); I50.33 Acute on chronic diastolic (congestive) heart failure; I24.89 Other forms of acute ischemic heart disease; J44.1 Chronic obstructive pulmonary disease with (acute) exacerbation; Z68.42 Body mass index [BMI] 45.0-49.9, adult; R78.81 Bacteremia; B95.1 Streptococcus, group B, as the cause of diseases classified elsewhere; I10 Essential (primary) hypertension; I71.43 Infrarenal abdominal aortic aneurysm, without rupture; I72.3 Aneurysm of iliac artery; E78.2 Mixed hyperlipidemia; E11.51 Type 2 diabetes mellitus with diabetic peripheral angiopathy without gangrene; K21.9 Gastro-esophageal reflux disease without esophagitis; L40.9 Psoriasis, unspecified; E66.01 Morbid (severe) obesity due to excess calories; Z20.822 Contact with and (suspected) exposure to COVID-19; G47.33 Obstructive sleep apnea (adult) (pediatric); Z99.81 Dependence on supplemental oxygen; Z89.512 Acquired absence of left leg below knee; Z87.891 Personal history of nicotine dependence
CPT/HCPCS: 36415; 71045; 71275; 74177; 80053; 81001; 82948; 83605; 83735; 83880; 84145; 84484; 85025; 85027; 85610; 85730; 87040; 87181; 87637; 87641; 93005; 93306; 93971; 94640; 96361; 96365; 96366; 96367; 99285; A9270; G0378; J0456; J0696; J1650; J1815; J1938; J7030; Q9967

== ENCOUNTER 2025-05-07 10:14 | Outpatient (CLI) | payer MEDICARE, SELFPAY ==
--- OUTSIDE RECORDS SUMMARY | 2025-05-07 11:25 | XMS_ITS | CONTINUITY OF CARE DOCUMENT ---
Author Name jody vera Address Unknown Organization [facility] Address [address] [place] [address] Phone [phone] Care Team Providers Care Balancer Scale Name Role Phone Sarahy GHOSH, Juan Carlos Unavailable MIKE GHOSH, RASHMIN Unavailable MIKE GHOSH, RASHMIN Unavailable [phone] INSURANCE PROVIDERS Payer name Policy type / Coverage type [place] [employer] ID [facility] [id number] [place] [employer] Medicare [id number]
[2025-05-07 13:24] LABS: Basophils Percent Auto 0.4 % (0.2-1.2); Eosinophils Absolute Auto 0.2 K/mm3 (0-0.3); Eosinophils Percent Auto 2.8 % (0-4.4); Hematocrit 38.1 % (42.0-52.0); Hemoglobin 11.7 g/dL (14.0-18.0); Immature Granulocyte Absolute 0.04 K/mm3 (0.00-0.031); Immature Granulocyte Percent A 0.5 % (0-0.5); Lymphocytes Absolute Auto 1.28 K/mm3 (0.9-3.2); Lymphocytes Percent Auto 16.1 % (18.3-44.2); Mean Corpuscular HGB Conc 30.7 g/dl (32-36); Mean Corpuscular Hemoglobin 27.9 pg (26-34); Mean Corpuscular Volume 90.7 fl (80-100); Mean Platelet Volume 10.1 fl (7.4-10.4); Monocytes Absolute Auto 0.9 K/mm3 (0.1-0.6); Monocytes Percent Auto 10.8 % (2.6-8.5); Neutrophils Absolute Auto 5.5 K/mm3 (1.3-6.7); Neutrophils Percent Auto 69.4 % (45.5-73.1); Platelet Count Result 254 k/mm3 (150-375); Red Cell Distribution Width 16.1 % (11.5-14.5); White Blood Count 7.9 K/mm3 (4.5-10.0)
[2025-05-07 13:39] LABS: Anion Gap 9 mmol/L (4-12); Blood Urea Nitrogen 30 mg/dL (9-20); Calcium 9.5 mg/dL (8.4-10.2); Carbon Dioxide 31 mmol/L (22-30); Chloride 98 mmol/L (98-107); Estimated Glomerular Filt Rate > 60; Glucose 160 mg/dL (65-110); Potassium 4.7 mmol/L (3.4-5.0); Sodium 138 mmol/L (137-145)
== END 2025-05-07 10:15 | disposition home or self-care (01) ==
PROVIDERS: PCP Internal Medicine; Visit Provider Clinical Nurse Specialist
DX: D72.829 Elevated white blood cell count, unspecified (principal); I10 Essential (primary) hypertension
CPT/HCPCS: 36415; 80048; 85025

== ENCOUNTER 2025-06-22 11:23 | Outpatient (CLI) | payer MEDICARE, SELFPAY ==
[2025-06-22 13:49] LABS: Alanine Aminotransferase 42 U/L (6-50); Albumin Level 3.9 g/dL (3.5-5.1); Alkaline Phosphatase 98 U/L (38-126); Anion Gap 11 mmol/L (4-12); Aspartate Amino Transferase 42 U/L (17-59); Bilirubin,Total 0.6 mg/dL (0.2-1.3); Blood Urea Nitrogen 24 mg/dL (9-20); Calcium 8.9 mg/dL (8.4-10.2); Carbon Dioxide 26 mmol/L (22-30); Chloride 98 mmol/L (98-107); Estimated Glomerular Filt Rate > 60; Glucose 155 mg/dL (65-110); Potassium 4.3 mmol/L (3.4-5.0); Sodium 135 mmol/L (137-145); Total Protein 7.3 g/dL (6.3-8.2)
[2025-06-22 18:18] LABS: Hemoglobin A1C 7.0 % (<5.7)
== END 2025-06-22 11:24 | disposition home or self-care (01) ==
LOC: ANHGOSHLAB 11:24
PROVIDERS: PCP Internal Medicine; Visit Provider Clinical Nurse Specialist
DX: E11.52 Type 2 diabetes mellitus with diabetic peripheral angiopathy with gangrene (principal); I10 Essential (primary) hypertension; R74.01 Elevation of levels of liver transaminase levels
CPT/HCPCS: 36415; 80053; 83036

== ENCOUNTER 2025-06-26 10:44 | Outpatient (NON) | payer MEDICARE, SELFPAY ==
[2025-06-26 13:24] LABS: MALB Creatinine Ratio 10.9 mg/g (0-30)
== END 2025-06-26 10:45 | disposition home or self-care (01) ==
LOC: ANHGOSHLAB 10:45
PROVIDERS: PCP Internal Medicine; Visit Provider Clinical Nurse Specialist
DX: R74.01 Elevation of levels of liver transaminase levels (principal); I10 Essential (primary) hypertension; E11.52 Type 2 diabetes mellitus with diabetic peripheral angiopathy with gangrene
CPT/HCPCS: 82043

== ENCOUNTER 2025-08-17 10:28 | Outpatient (CLI) | payer MEDICARE, SELFPAY ==
--- NOTE | ~2025-08-17 | CT_ITS ---
EXAMINATION: CT diagnostic chest wo con DATE: 08/17/2025 10:47 INDICATION: R91.1 - Solitary pulmonary nodule TECHNIQUE: Computed tomography (CT) of the chest was performed without intravenous contrast. Additional 3D reconstructions utilizing coronal maximum intensity projection (MIP) were performed. Automated exposure control and iterative reconstruction technique were employed. The dose-length product was 47 5.20 mGy-cm. COMPARISON: 03/08/2025 and 08/12/2024 FINDINGS: Again seen are small bilateral calcified pleural plaques. Mild linear discoid atelectasis/scarring at the basilar lingula, right middle and bilateral lower lobes. The discoid atelectasis in the right middle lobe has decreased in thickness prior study at which time it had a more elongated nodular appearance. No interval change in a 6 mm para fissural nodule in the right lower lobe. Also unchanged are a few additional scattered bilateral <4 mm calcified and noncalcified nodules. No new or enlarging pulmonary nodules identified. No pneumonia, pulmonary edema or pleural effusion. Heart size normal. Athe rosclerotic coronary artery calcifications. No pericardial effusion. Thoracic aorta is normal in caliber. No pathologically enlarged thoracic lymphadenopathy. No significant change in a 2.6 cm cystic subdermal nodules in the right parasternal region most likely epidermoid cyst. Mild lower thoracic kyphosis with chronic mild anterior wedging at T10. Moderate thoracic spondylosis and bridging osteophytes at multiple levels consistent with diffuse idiopathic skeletal hyperostosis (DISH). IMPRESSION: 1. Prior nodular opacity in the right middle lobe appears to correspond to a band of discoid atelectasis which is decreased in thickness since the prior study. 2. No significant change in a few additional scattered chronic 6 mm or smaller bilateral calcified and noncalcified pulmonary nodules, likely sequela of old granulomatous disease. Could consider continued follow-up with one year low-dose noncontrast chest CT. 3. 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 Reviewed, dictated and finalized at location A. IMPRESSION: 1. Prior nodular opacity in the right middle lobe appears to correspond to a ba nd of discoid atelectasis which is decreased in thickness since the prior study . 2. No significant change in a few additional scattered chronic 6 mm or smaller bilateral calcified and noncalcified pulmonary nodules, likely sequela of old g ranulomatous disease. Could consider continued follow-up with one year low-dose noncontrast chest CT. 3. 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
== END 2025-08-17 10:29 | disposition home or self-care (01) ==
PROVIDERS: PCP Internal Medicine; Visit Provider Clinical Nurse Specialist
DX: R91.8 Other nonspecific abnormal finding of lung field (principal); J92.9 Pleural plaque without asbestos
CPT/HCPCS: 71250

== ENCOUNTER 2025-11-13 12:38 | Outpatient (CLI) | payer MEDICARE, SELFPAY ==
[2025-11-13 19:12] LABS: Hematocrit 38.0 % (42.0-52.0); Hemoglobin 12.1 g/dL (14.0-18.0); Immature Granulocyte Percent A 0.4 % (0-0.5); Lymphocytes Absolute Auto 1.10 K/mm3 (0.9-3.2); Mean Corpuscular HGB Conc 31.8 g/dl (32-36); Mean Corpuscular Hemoglobin 28.7 pg (26-34); Mean Corpuscular Volume 90.0 fl (80-100); Nucleated Red Blood Cells Absolute Auto 0.000 K/mm3 (0.0-0.012); Nucleated Red Blood Cells Perc 0.0 % (0.0-0.2); Platelet Count Result 268 k/mm3 (150-375); Red Blood Count 4.22 M/mm3 (4.6-6.20); White Blood Count 8.6 K/mm3 (4.5-10.0)
[2025-11-13 19:17] LABS: Alanine Aminotransferase 41 U/L (6-50); Albumin Level 3.9 g/dL (3.5-5.1); Alkaline Phosphatase 110 U/L (38-126); Anion Gap 8 mmol/L (4-12); Aspartate Amino Transferase 40 U/L (17-59); Bilirubin,Total 0.6 mg/dL (0.2-1.3); Blood Urea Nitrogen 26 mg/dL (9-20); Calcium 9.2 mg/dL (8.4-10.2); Carbon Dioxide 31 mmol/L (22-30); Chloride 98 mmol/L (98-107); Cholesterol 152 mg/dL (0-200); Estimated Glomerular Filt Rate > 60; Glucose 127 mg/dL (65-110); HDL Direct 40 mg/dL; Potassium 4.5 mmol/L (3.4-5.0); Sodium 137 mmol/L (137-145); Total Protein 7.4 g/dL (6.3-8.2); Triglycerides 311 mg/dL (<150)
[2025-11-13 19:58] LABS: Hemoglobin A1C 6.7 % (<5.7)
== END 2025-11-13 12:39 | disposition home or self-care (01) ==
PROVIDERS: PCP Internal Medicine; Visit Provider Internal Medicine
DX: I10 Essential (primary) hypertension (principal); E78.2 Mixed hyperlipidemia; E11.52 Type 2 diabetes mellitus with diabetic peripheral angiopathy with gangrene; E66.01 Morbid (severe) obesity due to excess calories; Z68.41 Body mass index [BMI] 40.0-44.9, adult
CPT/HCPCS: 36415; 80053; 80061; 83036; 85025